=== PATIENT | female | born 2000 | race Caucasian/White ===

== ENCOUNTER 2019-06-08 13:01 | Outpatient (CLI) | payer MEDICAID, SELFPAY ==
--- NOTE | 2019-06-08 | US_ITS ---
WS: [id number] ULTRASOUND OB COMPLETE TECHNIQUE: Complete ultrasound. CLINICAL INFORMATION: POSITIVE TEST COMPARISON: None. FINDINGS: Cervix measures 2.4 cm. Single interuterine gestation is identified with vertex presentation. Placenta is posterior. Placenta grade 0. Normal amniotic fluid volume. cardiac activity: 138 BPM. AGA: 21w3d ALLA by ultrasound: 10/16/2019 Estimated weight: 399 g BDP: 5.3 cm = 22w0d HC: 19.6 cm = 21w6d AC: 15.8 cm = 20w6d FEMUR LENGTH: 3.5 cm = 21w1d Anatomic survey: Anatomic survey is normal. Normal stomach. Kidneys and bladder are normal. Normal 3 vessel cord. Norm al 3 vessel cord insertion. Normal 4 chamber heart. Normal spine. Intracranial contents are normal. N ormal posterior fossa and cisterna magna. US/US OB >= 14 weeks fetus [id number] IMPRESSION: 1. Single intrauterine with visualized cardiac activity. AGA 21 week s 1 day with ALLA 10/16/2019. 2. Placenta is posterior No evidence of abruption or previa. 3. anatomic survey is normal. 4. Normal amniotic fluid volume.
== END 2019-06-08 13:02 | disposition home or self-care (01) ==
PROVIDERS: Family Provider Family Medicine; PCP Family Medicine; Visit Provider Family Medicine
DX: Z76.89 Persons encountering health services in other specified circumstances (principal)

== ENCOUNTER 2019-08-08 12:19 | Outpatient (CLI) | payer MEDICAID, SELFPAY ==
--- NOTE | 2019-08-08 12:57 | PC.NURSE ---
Lab in room with patient at this time.
[2019-08-08 12:58] VITALS: BMI 20.3
[2019-08-08 13:59] VITALS: PULSE 72; RESP 18; TEMP 36.8; O2SAT 98
[2019-10-01 12:55] VITALS: BP 148/78; PULSE 93
== END 2019-08-08 12:20 | disposition home or self-care (01) ==
PROVIDERS: Family Provider Family Medicine; PCP Family Medicine; Visit Provider Family Medicine
DX: Z34.80 Encounter for supervision of other normal pregnancy, unspecified trimester (principal); Z31.82 Encounter for Rh incompatibility status; Z67.91 Unspecified blood type, Rh negative
CPT/HCPCS: 36415; 86850; 86900; 90384; 96372

== ENCOUNTER 2019-10-01 11:55 | Inpatient (IN) | payer MEDICAID, SELFPAY ==
[2019-10-01] VITALS (37 sets, daily range): BP systolic 0–173; BP diastolic 0–92; PULSE 52–86; RESP 16–20; TEMP 36.8; O2SAT 100; BMI 21.7
[2019-10-01 12:29] LABS: Basophils # 0.1 10^3/uL (0.0-0.1); Basophils % 0.9 %; Eosinophils # 0.4 10^3/uL (0.0-0.8); Eosinophils % 3.2 %; Hematocrit 27.7 % (37.0-47.0); Hemoglobin 8.5 g/dL (11.5-15.3); Lymphocytes % 25.6 %; Mean Corpuscular HGB Conc 30.7 g/dL (30.0-36.0); Mean Corpuscular Hemoglobin 22.4 pg (28.0-34.0); Mean Corpuscular Volume 73.1 fL (81-99); Mean Platelet Volume 10.3 fL (7.4-10.4); Monocytes # 0.8 10^3/uL (0.2-0.9); Monocytes % 7.2 %; Neutrophils # 7.4 10^3/uL (1.8-8.0); Neutrophils % 62.7 %; Nucleated Red Blood Cells % 0 %; Platelet Count 344 10^3/cmm (130-400); Red Blood Count 3.79 10^6/uL (4.1-5.3); Red Cell Distribution Width 17.7 % (12.1-15.1); White Blood Count 11.7 10^3/uL (4.5-13.0)
[2019-10-01] MEDS: lactated ringers 1,000 ML 999 ML IV (12:32)
[2019-10-01] MEDS: dextrose 5%-lactated ringers 1,000 ML 125 ML IV (13:02)
[2019-10-01] MEDS: oxytocin 30 UNIT/500 ML BAG 999 UNIT IV (13:03)
--- NOTE | 2019-10-01 13:31 | ANES.PREANE2 ---
Pre-Anesthetic Assessment Pre-Anesthetic Assessment: Height/Weight: Height 1.68 m Weight 61.235 kg Pulse BP Pulse Ox 73 173/82 100 10/01/19 13:23 10/01/19 13:29 10/01/19 13:24 Preop Diagnosis: labor pain Proposed Procedure: epidural Was Beta Hakan taken within 24 hours: N/A Social: Social History: Tobacco and No alcohol Exam: Pre-Anes Outpt Exam: alert, oriented x 3, clear to auscultation bilaterally and regular rate & rhythm Airway: Submandibular: WNL Cervical ROM: WNL MP: 2 Dentition: Full Pulmonary: Pulmonary: None reported CV/HEM: CV/HEM: Anemia : : None reported Hepatic: Hepatic: None reported GI: GI: None reported Metabolic: Metabolic: None reported Musc/skel: Musc/skel: None reported Neuropsych: Neuropsych: Anxiety Anesthetic Plan: ASA status: 2 Anesthesia: Eval. for regional block and Regional (specify below) Risk of > 500 ml blood loss (7ml/kg in children): No Other Pertinent Information: pre anesthetic assessment complete but charted post epidural due to patient needs. Meds/Allergies Current Medications: Current Medications Generic Name Dose Route Start Last Admin Trade Name Freq PRN Reason Stop Dose Admin Oxytocin 30 unit in 500 ml s @ 600 mls/hr 10/01/19 12:19 10/01/19 13:03 Pitocin IV 999 mls/hr .Q50M PRN 999 mls/hr After delivery of infant Administration Protocol Ropivacaine 200 mg in 100 mls @ 13 mls/hr 10/01/19 12:30 10/01/19 13:04 Naropin Premix EPIDURAL 13 mls/hr .Q7H42M NICOLE Administration Dextrose/Lactated Ringer's 1,000 mls @ 125 m ls/hr 10/01/19 12:30 10/01/19 13:02 Dextrose 5%-Lact ated Ringers IV 125 mls/hr .Q8H NICOLE Administration Lactated Ringer's 1,000 mls @ 999 m ls/hr 10/01/19 12:19 10/01/19 12:32 Lactated Ringers IV 999 mls/hr .Q1H1M PRN Administration BLEEDING Data Anesthesia CBC & Chem 7: 10/01/19 12:15 Other Labs: Laboratory Results - last 48 hr 10/01/19 12:15 WBC 11.7 RBC 3.79 L Hgb 8.5 L Hct 27.7 L MCV 73.1 L MCH 22.4 L MCHC 30.7 RDW 17.7 H Plt Count 344 MPV 10.3 Neut % (Auto) 62.7 Lymph % (Auto) 25.6 [place] % (Auto) 7.2 Eos % (Auto) 3.2 Baso % (Auto) 0.9 Neut # (Auto) 7.4 Lymph # (Auto) 3.0 [place] # (Auto) 0.8 Eos # (Auto) 0.4 Baso # (Auto) 0.1 Nucleated RBC % (auto) 0 Nucleated RBCs # 0.0 Cardiac Studies: No Data to Display
--- NOTE | 2019-10-01 13:34 | P.ANES_ITS ---
Anesthesia Procedures Procedure/Date: 10/01/19 epidural Procedure Narrative: epidural complete, bolus given, epidural pump initiated with LIQUEFACTION PLANT OPERATOR education given, vitals taken during procedure using OBIX system and satisfactory throughout, patient admits to decrease pain, report of procedure to OB RN Epidural: Time Out Performed: Yes Consents Signed: Procedure Consent Consent: requested by attending/covering physician, from patient, risks and benefits reviewed and patient agrees to proceed Lumbar Level: L3-L4 Epidural position: sitting Epidural procedure: sterile prep of area, 1% lidocaine to numb the area (3 mL), 18 g needle, negative for paresthesia passed, neg for paresthesia, test dose given, 1.5% xylocaine 1:200k epi (5 mL), 0.2% Ropivacaine bolus ml (5 mL), placed PCEA, no systemic response, sterile dressing applied, L.U.D. no apparent complications and 0.2% Ropiavacaine @ mls/hr (13 mL/hr)
--- NOTE | 2019-10-01 14:19 | PM.DELIVERY ---
Delivery Note: Date of delivery: October 01, 2019 Pre-Delivery Course: The patient had routine care during her . Her was complicated by short cervix and she was seen by M in [place]. Due to her history of prior delivery she received [place] injections throughout the thru 36 weeks. 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 She was blood type O-, antibody negative and received RhoGam at 28 weeks gestation. She was GBS negative. The patient was also diagnosed with constitutionally small fetus. Her ultrasound at 33 weeks gestation showed estimated weight to be in the 22nd percentile but this was brought up by a larger abdominal circumference. At 37 weeks gestation she was measuring less than the 10th percentile for all measurements. Again her abdominal circumference was the largest percentile of the measurements. As a precaution umbilical artery Dopplers were performed at that time and were reassuring. She also had a biophysical profile of 8 out of 8 that was reassuring. Delivery: This is a 19-year-old G2, P0101 at 37 weeks 6 days gestation who presented to labor and delivery in active labor 6 cm dilated 100% effaced and -1 station. She received an epidural for pain management. She was complete complete when artificial rupture of membranes was performed digitally and clear fluid was noted. Rupture of membranes was less than 15 minutes prior to delivery she had a normal spontaneous vaginal delivery of a viable female weight 2475 g 5 pounds 7 ounces Apgars 9 and 9 over an intact perineum. The was suctioned at delivery and placed on the mother's chest. The cord was clamped and cut. Placenta was delivered grossly intact and normal to inspection. There were some minor abrasions that were hemostatic and did not require any suturing. A&P Assessment and plan (1) Normal spontaneous vaginal delivery: Status: Acute (2) Short cervix affecting with delivery: Status: Acute (3) Rh negative, delivered, current hospitalization: Status: Acute Coding Level of Care Code Acute Roguer for g Fwd Diagnoses Normal spontaneous vaginal delivery O80 Short cervix affecting with delivery O26.879 Rh negative, delivered, current hospitalization O26.899; Z67.91
[2019-10-01] MEDS: lanolin oint 7 gm 1 APPLIC TOPICAL (16:39)
[2019-10-01] MEDS: benzocaine-menthol 78 gm Canister 1 SPRAY TOPICAL (16:40)
[2019-10-01] MEDS: docusate sodium 100 mg Capsule PO (17:25)
[2019-10-02 01:20] VITALS: BP 131/76; PULSE 73; RESP 17
[2019-10-02 02:49] LABS: Hematocrit 22.7 % (37.0-47.0); Hemoglobin 6.9 g/dL (11.5-15.3); Mean Corpuscular HGB Conc 30.4 g/dL (30.0-36.0); Mean Corpuscular Volume 75.7 fL (81-99); Mean Platelet Volume 10.7 fL (7.4-10.4); Platelet Count 317 10^3/cmm (130-400); Red Cell Distribution Width 17.6 % (12.1-15.1)
[2019-10-02 08:10] VITALS: BP 124/72; PULSE 70; RESP 17; TEMP 36.6; O2SAT 100
[2019-10-02] MEDS: docusate sodium 100 mg Capsule PO (09:52)
[2019-10-02] MEDS: prenatal vitamin Capsule 1 CAP PO (09:52)
--- NOTE | 2019-10-02 12:40 | PM.OBGYDC ---
Discharge Providers [employer] Date of Admission: 10/01/19 11:55 Date of Discharge: 10/02/19 Attending Provider at Admission: Cami Junior MD Attending Provider at Discharge: Cami Junior MD Primary Care Provider: Sarath Ramos MD Diagnoses at Discharge Discharge Diagnosis (1) Normal spontaneous vaginal delivery: Status: Acute (2) Short cervix affecting with delivery: Status: Acute (3) Rh negative, delivered, current hospitalization: Status: Acute Reason for Visit Reason for Visit: Reason For Visit: labor Hospital Course Discharge Summary: This is a 19-year-old -1-0-2 who presented to labor and delivery in active labor. She had a normal spontaneous vaginal delivery of a full-term viable female infant. After delivery she did well. She was ambulating, tolerating a regular diet, had decreased vaginal bleeding and was requesting discharge home. Information Peripartum Data: Infant Delivery Method: Vaginal Physical Exam Const: COMMON NORMALS: no acute distress and patient oriented x3 GENERAL APPEARANCE: cooperative and comfortable Chest: COMMONS NORMALS: normal inspection of the chest Resp: COMMON NORMALS: normal respiratory effort, No retractions and No use of accessory muscles Cardio: COMMON NORMALS: regular rate and regular rhythm RATE: regular rate RHYTHM: regular rhythm GI: COMMON NORMALS: Soft to palpation, non-tender and no masses PALPATION: Yes Soft to palpation Extremity: COMMON NORMALS: no calf tenderness and no pedal edema Neuro: COMMON NORMALS: patient oriented x3 Psych: COMMON NORMALS: mental status grossly normal Discharge Data Data Completed and Pending: Labs from last 24 hours 10/02/19 02:26 WBC 16.0 H RBC 3.00 L Hgb 6.9 L Hct 22.7 L MCV 75.7 L MCH 23.0 L MCHC 30.4 RDW 17.6 H Plt Count 317 MPV 10.7 H Vitals: Last Vital Signs Temp 97.9 F 10/02/19 08:10 Pulse 70 10/02/19 08:10 Resp 17 10/02/19 08:10 BP 124/72 10/02/19 08:10 Pulse Ox 100 10/02/19 08:10 Discharge Plan Discharge Patient Disposition: Home, Self-Care Condition: Stable Prescriptions: Continued iron 325 mg PO DAILY RF: 0 Discharge Orders: Discharge Order (Routine); Ordered 10/02/19 Ordered By: Cami Junior Referrals: Cami Junior MD [Physician] - 1 month Discharge Diet: Usual diet Discharge Activity: Limit activity as instructed Patient Instructions: Jaundice - , Cord Care (GEN), Tub Bathing Your Baby (GEN), Your Mckenney's Appearance (GEN), Caring for Your Baby (GEN), Bottle Feeding Your Baby (GEN), Jaundice in Newborns (GEN), Phototherapy for Jaundice in Newborns (DC), Umbilical Cord Care Discharge Attestations [employer] Time Spent in Discharge Care*: less than 30 min Coding Level of Care Code Acute Batch And Furnace Operator for Chg Fwd Diagnoses Normal spontaneous vaginal delivery O80 Short cervix affecting with delivery O26.879 Rh negative, delivered, current hospitalization O26.899; Z67.91
[2019-10-02 15:54] VITALS: BP 129/77; PULSE 82; RESP 18; TEMP 36.7; O2SAT 98
== END 2019-10-02 16:04 | disposition home or self-care (01) | DRG 807 ==
LOC: OPOB 12:58 → OBGYN 12:58
PROVIDERS: Admitting Provider Family Medicine; PCP Family Medicine; Visit Provider Family Medicine
DX: O26.873 Cervical shortening, third trimester (principal); Z37.0 Single live birth; Z3A.37 37 weeks gestation of pregnancy
CPT/HCPCS: 12345; 36415; 51702; 59025; 59409; 85025; 85027; 99211; J2795

== ENCOUNTER 2020-05-14 19:10 | Observation (INO) | payer MEDICAID, SELFPAY ==
[2020-05-14 19:15] VITALS: BP 129/81; PULSE 90; RESP 18; TEMP 36.9; O2SAT 97; BMI 16.1
--- NOTE | 2020-05-14 19:22 | ECG_ITS ---
[facility] Test Date: 2020-05-14 Pat Name: Donna Mullins Department: Room: Gender: Female Reading Coach: : 2000 Requested By: Wisam Barton Order Number: [id number] Yan MD: Kali Pfeiffer M.D. Measurements Intervals [place] Rate: 60 P: -12 DC: 111 QRS: -22 QRSD: 104 T: -12 QT: 386 QTc: 387 Interpretive Statements SINUS RHYTHM WITH SINUS ARRHYTHMIA WITH SHORT DC INTERVAL BORDERLINE LEFT AXIS DEVIATION [QRS AXIS < -20] INCOMPLETE RIGHT BUNDLE BRANCH BLOCK [90+ ms QRS DURATION, TERMINAL R IN V1/V2, 40+ ms S IN I/aVL/V4/V5/V6] MODERATE VOLTAGE CRITERIA FOR LVH, CONSIDER NORMAL VARIANT [MEETS CRITERIA IN ONE OF: R(aVL), S(V1), R(V5), R(V5/V6)+S(V1)] MODERATE ST DEPRESSION [0.05+ mV ST DEPRESSION] No previous ECG available for comparison Electronically Signed On 05-14-2020 23:55:07 SUTURE W[employer] by Kali Pfeiffer M.D. [email or web address]
[2020-05-14 19:53] LABS: Basophils # 0.1 10^3/uL (0.0-0.1); Basophils % 0.9 %; Eosinophils # 0.1 10^3/uL (0.0-0.8); Eosinophils % 1.3 %; Hematocrit 37.2 % (37.0-47.0); Hemoglobin 11.4 g/dL (11.5-15.3); Lymphocytes # 2.7 10^3/uL (0.8-4.8); Lymphocytes % 25.4 %; Mean Corpuscular HGB Conc 30.6 g/dL (30.0-36.0); Mean Corpuscular Hemoglobin 24.3 pg (28.0-34.0); Mean Corpuscular Volume 79.1 fL (81-99); Mean Platelet Volume 9.8 fL (7.4-10.4); Monocytes % 9.1 %; Neutrophils # 6.72 10^3/uL (1.8-7.7); Neutrophils % 63.1 %; Nucleated Red Blood Cells % 0 %; Platelet Count 363 10^3/cmm (130-400); Red Cell Distribution Width 15.5 % (12.1-15.1); White Blood Count 10.7 10^3/uL (4.0-10.0)
--- NOTE | 2020-05-14 20:10 | W.ED.PSYCH ---
HPI - Psych General: Chief Complaint: Psychiatric Symptoms Stated Complaint: psych eval Time Seen by Provider: 05/14/20 19:22 History of Present Illness: HPI Narrative: The patient is a 20-year-old female who comes to the ER complaining of depression and suicidal thoughts intermittently today. She says she has no plan and would not act on those thoughts. Her mother on 29 April and was. Today so she is particularly depressed today. denies any other medical complaints MD complaint: suicidal ideation and feels depressed Duration: intermittent History of same: Yes Context: recent drug abuse (THC) and significant life stressor Associated psychiatric symptoms: depression and suicidal ideation Associated symptoms: Deny depression Review of Systems General: Reports: 10 or more systems reviewed and unremarkable except in HPI and below Const: Denies: fatigue Eyes: Denies: change in vision, blurry vision or eye redness ENMT: Denies: throat pain, swelling of lips/tongue, ear or mastoid pain or nasal congestion Card: Denies: chest pain, palpitations, irregular heart rhythm, edema, dyspnea on exertion or orthopnea Resp: Denies: dyspnea, productive cough or non-productive cough GI: Denies: abdominal pain, diarrhea or GI cramping : Denies: flank pain, difficulty voiding, urinary frequency or urinary urgency Musc: Denies: neck pain, back pain, extremity pain, joint pain, joint redness, limited range of motion or muscle weakness Skin/Breast: Denies: rash, pruritus, erythema, skin pain or skin tenderness Neuro: Denies: headache(s), numbness in extremities, weakness in extremities, sensory changes, difficulty walking, dizziness, confusion or Slurred speech present Psych: Denies: anxiety or depression Endo: Denies: polyuria All/Imm: Denies: urticaria, throat swelling or tongue swelling [facility] Female Reproductive History: Date of last menstrual period: 04/09/20 Physical Exam Const: COMMON NORMALS: no acute distress, average body habitus, patient oriented x3, no limitations, healthy appearing, alert and well nourished GENERAL APPEARANCE: cooperative, comfortable, well kempt and well developed ORIENTATION/CONSCIOUSNESS: Yes awake, Yes oriented to person, Yes oriented to place and Yes oriented to time HENMT: COMMON NORMALS: normocephalic, external ears normal and Normal external nose present HEAD & SCALP: normal to inspection and normocephalic NOSE: Normal external nose present EXTERNAL EAR: Yes external ears normal MOUTH: Normal oral and palatal mucosa present THROAT: posterior oropharynx normal Eye: COMMON NORMALS: Equal, round and reactive pupils present and EOMs intact bilaterally GENERAL EYE: appearance normal, both eyes and all related structures PUPIL: Yes Equal, round and reactive pupils present Neck/C-Spine: COMMON NORMALS: full ROM, no lymphadenopathy, no meningeal signs and no JVD GENERAL: Yes normal visual inspection Lymph: LYMPHATIC: no lymphadenopathy noted Chest: COMMONS NORMALS: normal inspection of the chest and normal palpation of entire chest wall Resp: COMMON NORMALS: normal respiratory effort, No retractions, No use of accessory muscles, clear to auscultation bilaterally and percussion normal EFFORT & INSPECTION: Yes able to speak in complete sentences AUSCULTATION: clear to auscultation bilaterally PERCUSSION: percussion normal Cardio: COMMON NORMALS: no JVD, regular rate, regular rhythm, S1 normal heart sound present, S2 normal heart sound present and Peripheral pulses 2+ throughout RATE: regular rate RHYTHM: regular rhythm HEART SOUNDS: S1 normal heart sound present and S2 normal heart sound present PERIPHERAL PULSES: Peripheral pulses 2+ throughout GI: COMMON NORMALS: Normal to inspection, nondistended, normoactive bowel sounds present, Soft to palpation, non-tender and no masses INSPECTION: Yes normal to inspection PALPATION: Yes Soft to palpation : COMMON NORMALS: Yes no CVA tenderness BLADDER/KIDNEY EXAM: Yes no CVA tenderness Back/Pelvis: COMMON NORMALS: no CVA tenderness, thoracic and lumbar spine normal to inspection, no thoracic nor lumbar tenderness and thoraco-lumbar ROM normal Extremity: COMMON NORMALS: normal to inspection, full ROM, capillary refill normal, no joint enlargement and no pedal edema GENERAL: Yes normal exam except as noted Neuro: COMMON NORMALS: patient oriented x3, CN's II-XII intact bilaterally, moves all extremities, no focal motor deficits, no sensory deficits noted and gait normal SENSORIUM/ORIENTATION: Yes alert, Yes oriented to person, Yes oriented to place and Yes oriented to time MENINGEAL SIGNS: Yes no meningeal signs Psych: COMMON NORMALS: mental status grossly normal, Normal thought process present, cooperative, normal affect and speech normal APPEARANCE: Yes well kempt ATTITUDE: Yes calm SPEECH: Yes normal speech THOUGHT PROCESS: Normal thought process present Skin: COMMON NORMALS: no rashes or lesions noted GENERAL SKIN EXAM: no rashes or lesions noted MDM - Psych MDM Narrative: Medical decision making narrative: The patient came in depressed with intermittent suicidal thoughts. Offered her admission as she accepts. Dr. West accepts her care Lab Data: Labs: Lab Results 05/14/20 05/14/20 05/14/20 Range/Units 19:32 19:32 19:32 WBC (4.0-10.0) 10^3/ uL RBC (4.1-5.3) 10^6/u L Hgb (11.5-15.3) g/dL Hct (37.0-47.0) % MCV (81-99) fL MCH (28.0-34.0) pg MCHC (30.0-36.0) g/dL RDW (12.1-15.1) % Plt Count (130-400) 10^3/c mm MPV (7.4-10.4) fL Neut % (Auto) % Lymph % (Auto) % [place] % (Auto) % Eos % (Auto) % Baso % (Auto) % Neut # (Auto) (1.8-7.7) 10^3/u L Lymph # (Auto) (0.8-4.8) 10^3/u L [place] # (Auto) (0.2-0.9) 10^3/u L Eos # (Auto) (0.0-0.8) 10^3/u L Baso # (Auto) (0.0-0.1) 10^3/u L Nucleated RBC % (a uto) % Nucleated RBCs # /100WBC Sodium (136-145) mmol/L Potassium (3.5-5.1) mmol/L Chloride (98-107) mmol/L Carbon Dioxide (22-29) mmol/L Anion Gap (5-19) BUN (6-20) mg/dL Creatinine (0.5-0.9) mg/dL GFR Calculation (90-130) mL/min Glucose (65-115) mg/dL Calculated Osmolal ity (285-295) mOsm/k g Calcium (8.5-10.5) mg/dL Total Bilirubin (0.15-1.2) mg/dL AST (0-32) U/L ALT (0-33) U/L Alkaline Phosphata se (35-105) IU/L Total Protein (6.6-8.7) g/dL Albumin (3.5-5.2) g/dL Globulin (1.3-4.6) g/dL TSH (0.27-4.20) uIU/ mL HCG, Qual Negative (Negative) Urine Color Yellow (Yellow) Urine Appearance Sl cloudy A (CLEAR) Urine pH 7.0 (5-7) Ur Specific Gravit y 1.015 (1.005-1.030) Urine Protein Neg (Negative) Urine Glucose (UA) Norm (Normal) Urine Ketones Negative (Negative) Urine Blood Neg (Negative) Urine Nitrate Negative (Negative) Urine Bilirubin Neg (Negative) Urine Urobilinogen Norm (Negative) mg/dL Ur Leukocyte Rosangela ase Negative (Negative) Urine RBC None (0-2) /hpf Urine WBC None (0-5) /hpf Ur Squamous Epith Cells None (0-5) /hpf Amorphous Sediment 3+ /hpf Urine Bacteria Trace (NONE) /hpf Urine Opiates Scre en Negative (Negative) ng/mL Ur Barbiturates Sc reen Negative (Negative) ng/mL Ur Phencyclidine S crn Negative (Negative) ng/mL Ur Amphetamines Sc reen Negative (Negative) ng/mL U Benzodiazepines Scrn Negative (Negative) ng/mL Urine Cocaine Scre en Negative (Negative) ng/mL U Marijuana (THC) Screen Positive H (Negative) ng/mL Ethyl Alcohol (0-10) mg/dL 05/14/20 05/14/20 Range/Units 19:48 19:48 WBC 10.7 H (4.0-10.0) 10^3/ uL RBC 4.70 (4.1-5.3) 10^6/u L Hgb 11.4 L (11.5-15.3) g/dL Hct 37.2 (37.0-47.0) % MCV 79.1 L (81-99) fL MCH 24.3 L (28.0-34.0) pg MCHC 30.6 (30.0-36.0) g/dL RDW 15.5 H (12.1-15.1) % Plt Count 363 (130-400) 10^3/c mm MPV 9.8 (7.4-10.4) fL Neut % (Auto) 63.1 % Lymph % (Auto) 25.4 % [place] % (Auto) 9.1 % Eos % (Auto) 1.3 % Baso % (Auto) 0.9 % Neut # (Auto) 6.72 (1.8-7.7) 10^3/u L Lymph # (Auto) 2.7 (0.8-4.8) 10^3/u L [place] # (Auto) 1.0 H (0.2-0.9) 10^3/u L Eos # (Auto) 0.1 (0.0-0.8) 10^3/u L Baso # (Auto) 0.1 (0.0-0.1) 10^3/u L Nucleated RBC % (a uto) 0 % Nucleated RBCs # 0.0 /100WBC Sodium 138 (136-145) mmol/L Potassium 4.2 (3.5-5.1) mmol/L Chloride 103 (98-107) mmol/L Carbon Dioxide 26 (22-29) mmol/L Anion Gap 13.2 (5-19) BUN 7 (6-20) mg/dL Creatinine 0.6 (0.5-0.9) mg/dL GFR Calculation 126.2 (90-130) mL/min Glucose 112 (65-115) mg/dL Calculated Osmolal ity 285 (285-295) mOsm/k g Calcium 9.6 (8.5-10.5) mg/dL Total Bilirubin 0.2 (0.15-1.2) mg/dL AST 15 (0-32) U/L ALT 11 (0-33) U/L Alkaline Phosphata se 77 (35-105) IU/L Total Protein 7.6 (6.6-8.7) g/dL Albumin 4.3 (3.5-5.2) g/dL Globulin 3.3 (1.3-4.6) g/dL TSH 1.83 (0.27-4.20) uIU/ mL HCG, Qual (Negative) Urine Color (Yellow) Urine Appearance (CLEAR) Urine pH (5-7) Ur Specific Gravit y (1.005-1.030) Urine Protein (Negative) Urine Glucose (UA) (Normal) Urine Ketones (Negative) Urine Blood (Negative) Urine Nitrate (Negative) Urine Bilirubin (Negative) Urine Urobilinogen (Negative) mg/dL Ur Leukocyte Rosangela ase (Negative) Urine RBC (0-2) /hpf Urine WBC (0-5) /hpf Ur Squamous Epith Cells (0-5) /hpf Amorphous Sediment /hpf Urine Bacteria (NONE) /hpf Urine Opiates Scre en (Negative) ng/mL Ur Barbiturates Sc reen (Negative) ng/mL Ur Phencyclidine S crn (Negative) ng/mL Ur Amphetamines Sc reen (Negative) ng/mL U Benzodiazepines Scrn (Negative) ng/mL Urine Cocaine Scre en (Negative) ng/mL U Marijuana (THC) Screen (Negative) ng/mL Ethyl Alcohol < 10 (0-10) mg/dL Discharge Plan Discharge Patient Disposition: Admitted As Inpatient Admit Provider: Paulo West Clinical Impression: Suicidal ideation Condition: Stable Discharge Diet: Advance as tolerated Discharge Activity: Resume usual activity Coding Level of Care Code ED General Machinist for Rodrigo Fwd Exam Comprehensive
[2020-05-14 20:16] LABS: Amphetamines Screen Urine Negative (Negative); Barbiturates Screen Urine Negative (Negative); Benzodiazepines Screen Urine Negative (Negative); Cocaine Screen Urine Negative (Negative); Opiate Screen Urine Negative (Negative); PCP Screen Urine Negative (Negative); THC Screen Urine Positive (Negative)
[2020-05-14 20:26] LABS: HCG Qualitative Urine. Negative (Negative)
[2020-05-14 20:29] LABS: Add Urine Microscopic? YES; Bilirubin Urine Neg (Negative); Blood Urine Neg (Negative); Glucose Urine UA Norm (Normal); Ketones Urine Negative (Negative); Leukocyte Esterase Urine Negative (Negative); Nitrate Urine Negative (Negative); Protein Urine Neg (Negative); Specific Gravity, Urine 1.015 (1.005-1.030); Urine Color Yellow (Yellow); Urobilinogen Urine Norm (Negative)
[2020-05-14 20:30] LABS: Add Urine Culture? No; Amorphous Sediment Urine 3+ /hpf; Bacteria Urine TRACE /hpf
[2020-05-14 20:35] LABS: Alanine Aminotransferase 11 U/L (0-33); Albumin Level 4.3 g/dL (3.5-5.2); Alkaline Phosphatase 77 IU/L (35-105); Anion Gap 13.2 (5-19); Aspartate Amino Transferase 15 U/L (0-32); Blood Urea Nitrogen 7 mg/dL (6-20); Calcium 9.6 mg/dL (8.5-10.5); Carbon Dioxide 26 mmol/L (22-29); Chloride 103 mmol/L (98-107); Globulin 3.3 g/dL (1.3-4.6); Glomerular Filtration Rate 126.2 mL/min (90-130); Glucose 112 mg/dL (65-115); Osmolality Calculated 285 mOsm/kg (285-295); Potassium 4.2 mmol/L (3.5-5.1); Sodium 138 mmol/L (136-145); Thyroid Stimulating Hormone 1.83 uIU/mL (0.27-4.20); Total Bilirubin 0.2 mg/dL (0.15-1.2); Total Protein 7.6 g/dL (6.6-8.7)
[2020-05-14 20:38] LABS: Alcohol Level < 10 mg/dL (0-10)
[2020-05-14 22:15] VITALS: BP 130/70; PULSE 81; RESP 16; O2SAT 99
[2020-05-14 22:16] LABS: Acetaminophen < 5.0 ug/mL (10-30); Salicylate < 0.3 mg/dL (3-10)
[2020-05-14 22:25] VITALS: BP 123/82; PULSE 75; RESP 16; O2SAT 99
[2020-05-14 22:28] VITALS: BP 111/72; PULSE 81; RESP 18; TEMP 36.8; O2SAT 97
[2020-05-14] MEDS: hyDROXYzine 25 mg Capsule 50 MG PO (23:06)
[2020-05-14] MEDS: trazodone 50 mg Tablet PO (23:06)
--- NOTE | 2020-05-15 05:10 | PC.NURSE ---
Skin assessment revealed no wounds or injuries.
[2020-05-15 05:56] VITALS: BP 138/47; PULSE 59; RESP 17; TEMP 36.7; O2SAT 97
[2020-05-15] MEDS: propranolol 20 mg Tablet PO (15:19)
[2020-05-15] MEDS: fluoxetine 20 mg Capsule PO (15:19)
--- NOTE | 2020-05-15 16:16 | P.SS_ITS ---
Short Stay Summary Providers Date of Admit/Discharge: 05/15/20 Attending Provider: Pualo West MD Primary Care Provider: Sarath Ramos MD Chief Complaint: psy eval HPI History of Present Illness Donna Mullins is a 20 year old female who presented to the emergency department with the following report: Chief Complaint: Psychiatric Symptoms Stated Complaint: psych eval Time Seen by Provider: 05/14/20 19:22 History of Present Illness: HPI Narrative: The patient is a 20-year-old female who comes to the ER complaining of depression and suicidal thoughts intermittently today. She says she has no plan and would not act on those thoughts. Her mother on 29 April and was. Today so she is particularly depressed today. denies any other medical complaints complaint: suicidal ideation and feels depressed Duration: intermittent History of same: Yes Context: recent drug abuse (THC) and significant life stressor Associated psychiatric symptoms: depression and suicidal ideation Associated symptoms: Deny depression. She was admitted to the neuropsychiatric unit for definitive treatment of those issues. She presents today reporting that this is her first psychiatric admission. She reports that she did go to [facility] but has some bills she owes to them and so she can go back anticipates them off. Probably over 2 years ago. She reports it was shortly after the of her son. She reports she was really struggling with different feelings in thought counseling would help and it did. She reports that she smokes about 5 to 6 g a day, does not drink alcohol regularly, smokes marijuana mostly daily, denies cocaine methamphetamine or any other illicit drugs. She never gone to rehab and never had a DUI. She reports that this hospitalization is probably linked to the unexpected of her mother on April 29. She reports that she is hyperthyroid and had been off of her medication and was making some poor choices. That included using some drugs. Ultimately she got a leg infection that spread and for 6 weeks she had been in and out of the hospital. She reports that she had been in the hospital on April 29 and had a clot in her leg that went to her lungs and killed her. She reports that on top of all that she is raising her 2 young children and ports reading the father of her youngest child reporting that he has not worked since July and just sits around and plays [employer] and allows her to just do everything she reports that she has been talking to him daily about getting out of the house and he is not interested in leaving and she feels that the only way she will build get them out is by drastic measures like evicting him or PFA or something. We discussed the risk benefits and alternatives of a trial of Prozac and propranolol as needed and she understood and agreed to proceed as is documented in his note. Psychiatric history: As above. She denies history of suicide attempts but she does endorse having self-injurious behavior when she was about in middle school. Substance abuse history: As above. Family history: She denies psychiatric, mental health, addiction or suicide attempts or completions on either side of her family. Developmental history: She reports being about 3 weeks early, learning to walk and talk and meeting developmental milestones on time, and having speech therapy secondary to a lisp but denying emotional support, learning support or special education classes. Psychosocial history: She reports that her parents were together until she graduated from high school. That she has an older brother that is a product of the same union. Her mother has a son that is her half brother and her dad had a son and a daughter that are her half siblings. She reports that she was really poor when she was younger until her dad with the [employer] school. She denies emotional, physical or sexual abuse in her childhood. She graduated from high school and endorses being bisexual. She endorses her longest relationship is about 3 years. She is never been , she has a 2-1/2-year-old son and a 7-month-old daughter, she is never been in the and she endorses being a [employer]. 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 She currently lives in a house with her 2 children and the father of her youngest child. Legal history: She has been in shelter 1 time secondary to a cannabis possession charge. Mental status examination: This is a severely underweight young white female with hospital scrubs on with adequate grooming and eye contact. No abnormal movements except for mild psychomotor retardation. Cooperative with exam in no acute distress. Speech was slightly decreased volume and normal rate. Mood described as a little down, affect congruent. Thought process organized. Thought content: Patient denied suicidal or homicidal ideation, there were no delusions reported or noted, she denies any auditory or visual hallucinations. Attention and concentration were intact and memory appeared reliable but none were formally tested. She is alert and oriented x3. Insight and judgment appeared fair and impulse control appeared fair. Assessment/plan: This is a 20-year-old white female with a initial history of treatment with some counseling previously for her depression and anxiety who presents with bereavement, partner relational problem and cannabis abuse looking for connection to treatment. 1. Continue current medication. Initiate Prozac 20 mg p.o. every morning and propranolol prn. 2. Continue every 15 minute checks for safety until discharge. 3. Encourage individual, group and milieu therapies. . Work with social work to get patient connected with outpatient services and case management to negotiate the challenges of her current situation. Home Meds/Allergies Home Medications and Allergies Home Medications Medication Instructions Recorded Confirmed Type Cole-Iron 325 mg PO DAILY 05/14/20 05/14/20 History Allergies Allergy/AdvReac Type Severity Reaction Status Date / Time Penicillins Allergy Intermediate ADR-Shakine Verified 10/01/19 15:18 ss celexa Allergy ADR-Cramping Uncoded 05/14/20 23:30 of the Muscles [facility] Acute Female Reproductive History: Date of last menstrual period: 04/09/20 Vitals/I&O/Wt Last Vital Signs Temp 98.0 F 05/15/20 05:56 Pulse 59 L 05/15/20 05:56 Resp 17 05/15/20 05:56 BP 138/47 05/15/20 05:56 Pulse Ox 97 05/15/20 05:56 Weight last 48 hrs Weight 45.359 kg Hospital Course Admission Diagnoses Bereavement, cartilage problems, depression, anxiety, cannabis use, and suicidal thoughts. Hospital Course Donna presented to the emergency department with suicidal thinking and struggling after the of her mother about 2 weeks ago having stopped Celexa sometime ago for side effects. She was admitted to the neuropsychiatric unit for observation and definitive treatment of those issues. She was struggling with being away from her 2 children but was open to a trial of medication and being connected with outpatient services. She was started on Prozac and propranolol and had no issues with her first dose of Prozac. She contracted for safety prior to discharge. During the hospitalization, patient had routine laboratory studies which were within normal limits except for few outliers. Additionally he had a general medical evaluation which was also within normal limits and revealed no new acute processes. Discharge Summary At the time of discharge, she was absent lethality or psychosis. Mood and anxiety were well managed. Patient endorsed a plan to avoid all drugs of abuse except cannabis and follow-up with the aftercare recommendations of the treatment team. Patient was evaluated and deemed to be absent credible lethality, and was a voluntary patient who wanted to manage her symptoms on an outpatient basis, so was discharged. Diagnoses at Discharge Discharge Diagnosis (1) Suicidal ideation: Status: Acute (2) Cannabis abuse: Status: Acute (3) Partner relational problem: Status: Acute (4) Anxiety: Status: Acute (5) Depression: Status: Acute Discharge Plan Discharge Patient Disposition: Home Condition: Stable Prescriptions: New trazodone 50 mg Tablet 50 mg PO BEDTIME PRN (Reason: Sleep) 30 Days Qty: 30 RF: 1 propranolol 20 mg Tablet 20 mg PO TID PRN (Reason: Anxiety) 30 Days Qty: 90 RF: 1 fluoxetine 20 mg Capsule 20 mg PO DAILY 30 Days Qty: 30 RF: 1 Continued Cole-Iron 325 mg PO DAILY RF: 0 Discharge Orders: Discharge Order (Routine); Ordered 05/15/20 Ordered By: Paulo West Referrals: Sarath Ramos MD [Primary Care Provider] - Discharge Diet: Regular Discharge Activity: Resume usual activity Attestations Medical Necessity Statement*: Inpatient hospitalization was no longer medically necessary and the clinically appropriate intervention at this time. She was able to contract for safety and was open to initiating medications and following up as an outpatient. Time Spent in Patient Care*: greater than 30 min Specific Discharge Activities: Specific discharge activities: educating patient, discussing with continuous pillowcase cutter/social workers/dc planners, documenting/other paperwork and evaluating patient/reviewing data Status at Discharge: Cognitive status at discharge: cognitively intact , Behavioral status at discharge: cooperative , Functional status at discharge: independent ambulation Overall status at discharge: patient is progressing back to baseline Quality Metrics Clinical Quality Measures: During this hospital stay, did patient experience: None Coding Level of Care Code Acute Delinquent Tax Collection Assistant for Rodrigo Palmer Diagnoses Suicidal ideation R45.851 Cannabis abuse F12.10 Partner relational problem Z63.0 Anxiety F41.9 Depression F32.9
[2020-05-15 16:33] VITALS: BP 138/47; PULSE 59; RESP 17; TEMP 36.7; O2SAT 97
== END 2020-05-15 17:03 | disposition home or self-care (01) ==
LOC: ER 20:37 → NP 05-15 05:59
PROVIDERS: Admitting Provider Psychiatry & Neurology Psychiatry; Emergency Provider Family Medicine; PCP Family Medicine; Visit Provider Psychiatry & Neurology Psychiatry
DX: R45.851 Suicidal ideations (principal); F12.10 Cannabis abuse, uncomplicated; Z63.0 Problems in relationship with spouse or partner; F41.9 Anxiety disorder, unspecified; F32.9 Major depressive disorder, single episode, unspecified
CPT/HCPCS: 12345; 80053; 80306; 80307; 81001; 81025; 84443; 85025; 93005; 99284; 99285; G0378

== ENCOUNTER → 2021-03-03 16:17 | Outpatient (BNVA) | payer MEDICAID, SELFPAY | PROVIDERS: PCP Family Medicine; Visit Provider Nurse Practitioner Family | DX: Z20.822 Contact with and (suspected) exposure to COVID-19 (principal) | CPT/HCPCS: 87635 ==

== ENCOUNTER 2021-10-23 09:19 | Emergency (ER) | payer MEDICAID, SELFPAY ==
[2021-10-23 09:24] VITALS: BP 118/79; PULSE 78; RESP 40; TEMP 36.4; O2SAT 100; BMI 18.6
--- NOTE | 2021-10-23 09:32 | ED_ITS ---
HPI - Abdominal Pain General: Chief Complaint: Abdominal Pain Stated Complaint: adb pain Time Seen by Provider: 10/23/21 09:19 Source: patient Mode of arrival: ambulatory Limitations: no limitations History of Present Illness: Patient is a 21-year-old female who presents to ED today with a complaint of abdominal pain, nausea, vomiting, and diarrhea beginning this morning when she awoke. Patient states she has had 9-10 episodes of both emesis and diarrhea today. She reports no blood to either. She is not running fevers. Patient arrives and immediately is very anxious. She is hyperventilating and now complaining of carpal and pedal spasms as well as paresthesias to her arms. Patient denies any new medications. She denies alcohol or NSAID use. Denies drug/marijuana use. MD elicited complaint: abdominal pain Pertinent past history: none Onset (ago): hour(s) Pain Consistency: constant Location: Diffuse Radiation: none Migration to: no migration Exacerbating factors: eating Relieving factors: nothing Associated Symptoms: Reports diarrhea, nausea and vomiting; Denies chills, dysuria, fever(s), hematochezia, hematemesis, melena and syncope Related Data: Date of Last Menstrual Period: 04/09/20 Patient : No Review of Systems Const: Denies: fever(s), chills, body aches, fatigue or malaise Card: Denies: chest pain, palpitations, irregular heart rhythm, edema, swelling of feet/ankles, syncope, dyspnea on exertion, orthopnea, leg pain with exertion or acrocyanosis Resp: Reports: dyspnea; Denies: productive cough, non-productive cough or chest congestion GI: Reports: abdominal pain, nausea, vomiting and diarrhea; Denies: hematemesis, hematochezia or melena : Denies: flank pain, dysuria, vaginal odor, vaginal bleeding, vaginal discharge or pelvic pain Musc: Reports: other (carpal spasms); Denies: neck pain, back pain, extremity pain or joint pain Skin/Breast: Denies: rash Neuro: Reports: numbness in extremities; Denies: headache(s), weakness in extremities, lack of coordination or confusion [facility] ED Female Reproductive History: Date of last menstrual period: 04/09/20 Physical Exam Const: COMMON NORMALS: patient oriented x3, no limitations, alert and well nourished GENERAL APPEARANCE: cooperative and anxious (hyperventilating ) ORIENTATION/CONSCIOUSNESS: Yes awake, Yes oriented to person, Yes oriented to place and Yes oriented to time HENMT: COMMON NORMALS: normocephalic and atraumatic HEAD & SCALP: normal to inspection, normocephalic and atraumatic Neck/C-Spine: COMMON NORMALS: full ROM and no lymphadenopathy GENERAL: Yes normal visual inspection Chest: COMMONS NORMALS: normal inspection of the chest and normal palpation of entire chest wall Resp: COMMON NORMALS: normal respiratory effort, No retractions, No use of accessory muscles and clear to auscultation bilaterally EFFORT & INSPECTION: Yes tachypneic AUSCULTATION: clear to auscultation bilaterally Cardio: COMMON NORMALS: regular rate and regular rhythm RATE: regular rate RHYTHM: regular rhythm GI: COMMON NORMALS: Normal to inspection, nondistended, normoactive bowel sounds present, Soft to palpation, No hepatosplenomegaly present and no masses INSPECTION: Yes normal to inspection AUSCULTATION: Yes normoactive bowel sounds PALPATION: Yes Soft to palpation, Yes Tenderness to palpation present (GI) (diffusely ) and Yes No hepatosplenomegaly present : COMMON NORMALS: Yes no CVA tenderness BLADDER/KIDNEY EXAM: Yes no CVA tenderness Back/Pelvis: COMMON NORMALS: no CVA tenderness, thoracic and lumbar spine normal to inspection, no thoracic nor lumbar tenderness and thoraco-lumbar ROM normal Extremity: COMMON NORMALS: normal to inspection GENERAL: Yes normal exam except as noted Neuro: SABINE COMA SCALE: document GCS findings Sabine coma scale eye o pening: Spontaneous [place] coma scale verbal response: Orientated [place] coma scale motor response: Obey commands Sabine coma scale total score: 15 COMMON NORMALS: patient oriented x3, moves all extremities, no focal motor deficits and no sensory deficits noted SENSORIUM/ORIENTATION: Yes alert, Yes oriented to person, Yes oriented to place and Yes oriented to time Skin: COMMON NORMALS: no rashes or lesions noted GENERAL SKIN EXAM: no rashes or lesions noted Course Reevaluation(s): Reevaluation #1: Reevaluation reveals patient resting comfortably. She has not had any vomiting or diarrhea during her stay. Anxiety/hyperventilation has resolved. She is no longer complaining of carpal/pedal spasms or paresthesias. Went over patient's blood work including her mild hypokalemia and replacement for this. We are still pending a urine. CT scan of her abdomen is normal. Most likely this is a viral gastroenteritis and we went over treatment for this at home. Vital Signs: Vital signs: Vital Signs Temperature 97.5 F L 10/23/21 09:24 Pulse Rate 78 10/23/21 09:24 Respiratory Rate 40 H 10/23/21 09:24 Blood Pressure 118/79 10/23/21 09:24 Pulse Oximetry 100 10/23/21 09:24 MDM - Abdominal Pain Medical Decision Making Patient is still resting comfortably. Vital signs are stable. UA does not show any evidence for acute cystitis. At this time we will send patient home with nausea meds for vomiting. Recommend lots of rest and fluids. Return to ED precautions verbally given. Lab Data : 10/23/21 09:50 10/23/21 09:50 Labs/Radiology: Radiology Impressions Abdomen/Pelvis CT 10/23/21 09:33 IMPRESSION: 1. No acute intra-abdominal findings. 2. Small focus of ground-glass in the left lower lobe is likely infectious or inflammatory. Laboratory Results WBC 10.2 10^3/uL (4.0-10.0) H 10/23/21 09:50 RBC 5.11 10^6/uL (4.1-5.3) 10/23/21 09:50 Hgb 13.6 g/dL (11.5-15.3) 10/23/21 09:50 Hct 40.4 % (37.0-47.0) 10/23/21 09:50 MCV 79.1 fl (81-99) L 10/23/21 09:50 MCH 26.6 pg (28.0-34.0) L 10/23/21 09:50 MCHC 33.7 g/dL (30.0-36.0) 10/23/21 09:50 RDW 13.9 % (12.1-15.1) 10/23/21 09:50 Plt Count 333 10^3/cmm (130-400) 10/23/21 09:50 MPV 9.9 fL (7.4-10.4) 10/23/21 09:50 Neut % (Auto) 81.9 % 10/23/21 09:50 Lymph % (Auto) 9.1 % 10/23/21 09:50 Sharkey % (Auto) 8.2 % 10/23/21 09:50 Eos % (Auto) 0.1 % 10/23/21 09:50 Baso % (Auto) 0.4 % 10/23/21 09:50 Neut # (Auto) 8.34 10^3/uL (1.8-7.7) H 10/23/21 09:50 Lymph # (Auto) 0.9 10^3/uL (0.8-4.8) 10/23/21 09:50 Sharkey # (Auto) 0.8 10^3/uL (0.2-0.9) 10/23/21 09:50 Eos # (Auto) 0.0 10^3/uL (0.0-0.8) 10/23/21 09:50 Baso # (Auto) 0.0 10^3/uL (0.0-0.1) 10/23/21 09:50 Nucleated RBC % (auto) 0 % 10/23/21 09:50 Nucleated RBCs # 0.0 /100WBC 10/23/21 09:50 Sodium 138 mmol/L (136-145) 10/23/21 09:50 Potassium 3.1 mmol/L (3.5-5.1) L 10/23/21 09:50 Chloride 103 mmol/L (98-107) 10/23/21 09:50 Carbon Dioxide 17 mmol/L (22-29) L 10/23/21 09:50 Anion Gap 21.1 (5-19) H 10/23/21 09:50 BUN 9 mg/dL (6-20) 10/23/21 09:50 Creatinine 0.8 mg/dL (0.5-0.9) 10/23/21 09:50 GFR Calculation 89.7 mL/min (90-130) L 10/23/21 09:50 Glucose 111 mg/dL (65-115) 10/23/21 09:50 Calculated Osmolality 285 mOsm/kg (285-295) 10/23/21 09:50 Calcium 9.6 mg/dL (8.5-10.5) 10/23/21 09:50 Total Bilirubin 0.7 mg/dL (0.15-1.2) 10/23/21 09:50 AST 15 U/L (0-32) 10/23/21 09:50 ALT 9 U/L (0-33) 10/23/21 09:50 Alkaline Phosphatase 78 IU/L (35-105) 10/23/21 09:50 Total Protein 8.3 g/dL (6.6-8.7) 10/23/21 09:50 Albumin 4.9 g/dL (3.5-5.2) 10/23/21 09:50 Globulin 3.4 g/dL (1.3-4.6) 10/23/21 09:50 Lipase 18 U/L (13-60) 10/23/21 09:50 HCG, Qual Negative (Negative) 10/23/21 09:50 Urine Color Yellow (Yellow) 10/23/21 11:21 Urine Appearance Clear (CLEAR) 10/23/21 11:21 Urine pH 5 (5-7) 10/23/21 11:21 Ur Specific [place] 1.025 (1.005-1.030) 10/23/21 11:21 Urine Protein Neg (Negative) 10/23/21 11:21 Urine Glucose (UA) Norm (Normal) 10/23/21 11:21 Urine Ketones 3+ (Negative) H 10/23/21 11:21 Urine Blood 2+ (Negative) H 10/23/21 11:21 Urine Nitrate Negative (Negative) 10/23/21 11:21 Urine Bilirubin 1+ (Negative) H 10/23/21 11:21 Urine Urobilinogen Norm mg/dL (Negative) 10/23/21 11:21 Ur Leukocyte Esterase Negative (Negative) 10/23/21 11:21 Amorphous Sediment Not Reportable 10/23/21 11:21 Discharge Plan Discharge Patient Disposition: Home Clinical Impression: Gastroenteritis, Acute hypokalemia Condition: Stable Prescriptions: New ondansetron 4 mg tablet,disintegrating 4 mg PO Q8H PRN (Reason: nausea and vomiting) Qty: 14 0RF No Action citalopram 10 mg tablet 10 mg PO DAILY 0RF propranolol 20 mg Tablet 20 mg PO TID PRN (Reason: Anxiety) 30 Days Qty: 90 1RF Discharge Orders: Discharge ED (Routine); Ordered 10/23/21 Ordered By: Jasmyn Herring Referrals: Sarath Ramos MD [Primary Care Provider] - Patient Instructions: Hypokalemia (ED), Gastroenteritis (DC) Coding Level of Care Code ED Sanitation Technician for Chg Fwd Exam Comprehensive
--- NOTE | 2021-10-23 09:33 | CTR_ITS ---
PROCEDURE INFORMATION: Exam: CT Abdomen And Pelvis Without Contrast Exam date and time: 10/23/2021 10:26 AM Age: 21 years old Clinical indication: Abdominal pain; Acute; Additional info: Abdominal pain, n/v/d TECHNIQUE: Imaging protocol: Computed tomography of the abdomen and pelvis without contrast. Radiation optimization: All CT scans at this facility use at least one of these dose optimization techniques: automated exposure control; mA and/or kV adjustment per patient size (includes targeted exams where dose is matched to clinical indication); or iterative reconstruction. COMPARISON: OB >= 14 weeks fetus [id number] 06/08/2019 1:01 PM RADIATION DOSE METRICS: Total DLP (mGy-cm): 579.82 FINDINGS: Lungs: Small focus of ground-glass in the medial segment of the left lower lobe is likely infectious or inflammatory. Liver: Focal fatty infiltration along the falciform ligament. Gallbladder and bile ducts: Normal. No calcified stones. No ductal dilation. Pancreas: Normal. No ductal dilation. Spleen: Normal. No splenomegaly. Adrenal glands: Normal. No mass. Kidneys and ureters: Normal. No hydronephrosis. Stomach and bowel: Unremarkable. No obstruction. No mucosal thickening. Appendix: No evidence of appendicitis. Intraperitoneal space: Unremarkable. No free air. No significant fluid collection. Vasculature: Unremarkable. No abdominal aortic aneurysm. Lymph nodes: Unremarkable. No enlarged lymph nodes. Urinary bladder: Unremarkable as visualized. Reproductive: Unremarkable as visualized. Bones/joints: Unremarkable. No acute fracture. Soft tissues: Unremarkable. CT/CT kidney stone [id number] IMPRESSION: 1. No acute intra-abdominal findings. 2. Small focus of ground-glass in the left lower lobe is likely infectious or inflammatory.
[2021-10-23] MEDS: LORazepam 2 mg/mL INJ 1 mL 1 MG IVP (09:50)
[2021-10-23] MEDS: sodium chloride 0.9% 1,000 ML 999 ML IV (09:51)
[2021-10-23] MEDS: ondansetron 2 mg/ML SDV 2 mL 4 MG IVP (09:52)
[2021-10-23 10:01] LABS: Basophils % 0.4 %; Eosinophils % 0.1 %; Hematocrit 40.4 % (37.0-47.0); Hemoglobin 13.6 g/dL (11.5-15.3); Lymphocytes # 0.9 10^3/uL (0.8-4.8); Lymphocytes % 9.1 %; Mean Corpuscular HGB Conc 33.7 g/dL (30.0-36.0); Mean Corpuscular Hemoglobin 26.6 pg (28.0-34.0); Mean Corpuscular Volume 79.1 fl (81-99); Mean Platelet Volume 9.9 fL (7.4-10.4); Monocytes # 0.8 10^3/uL (0.2-0.9); Monocytes % 8.2 %; Neutrophils # 8.34 10^3/uL (1.8-7.7); Neutrophils % 81.9 %; Nucleated Red Blood Cells % 0 %; Platelet Count 333 10^3/cmm (130-400); Red Blood Count 5.11 10^6/uL (4.1-5.3); Red Cell Distribution Width 13.9 % (12.1-15.1); White Blood Count 10.2 10^3/uL (4.0-10.0)
[2021-10-23 10:12] LABS: HCG, Serum Qual Negative (Negative)
[2021-10-23 10:18] LABS: Alanine Aminotransferase 9 U/L (0-33); Albumin Level 4.9 g/dL (3.5-5.2); Alkaline Phosphatase 78 IU/L (35-105); Anion Gap 21.1 (5-19); Aspartate Amino Transferase 15 U/L (0-32); Blood Urea Nitrogen 9 mg/dL (6-20); Calcium 9.6 mg/dL (8.5-10.5); Carbon Dioxide 17 mmol/L (22-29); Chloride 103 mmol/L (98-107); Globulin 3.4 g/dL (1.3-4.6); Glomerular Filtration Rate 89.7 mL/min (90-130); Glucose 111 mg/dL (65-115); Lipase 18 U/L (13-60); Osmolality Calculated 285 mOsm/kg (285-295); Potassium 3.1 mmol/L (3.5-5.1); Sodium 138 mmol/L (136-145); Total Bilirubin 0.7 mg/dL (0.15-1.2); Total Protein 8.3 g/dL (6.6-8.7)
[2021-10-23] MEDS: potassium chloride ER 20 mEq Tablet 40 MEQ PO (11:30)
[2021-10-23 11:39] LABS: Urine Appearance Clear (CLEAR); Urine Color Yellow (Yellow)
[2021-10-23 11:40] LABS: Bilirubin Urine 1+ (Negative); Blood Urine 2+ (Negative); Glucose Urine UA Norm (Normal); Ketones Urine 3+ (Negative); Leukocyte Esterase Urine Negative (Negative); Nitrate Urine Negative (Negative); Protein Urine Neg (Negative); Specific Gravity, Urine 1.025 (1.005-1.030); Urobilinogen Urine Norm (Negative); pH Urine 5 (5-7)
[2021-10-23 11:41] LABS: Add Urine Microscopic? YES
[2021-10-23 11:58] LABS: Bacteria Urine 1+ /hpf; RBC Urine 0-4 /hpf (0-2); Squamous Epithelial Cell Urine 0-4 /hpf (0-5); WBC Urine 0-4 /hpf (0-5)
== END 2021-10-23 12:18 | disposition home or self-care (01) ==
PROVIDERS: Emergency Provider Physician Assistant; PCP Family Medicine
DX: K52.9 Noninfective gastroenteritis and colitis, unspecified (principal); E87.6 Hypokalemia; R11.2 Nausea with vomiting, unspecified
CPT/HCPCS: 74176; 80053; 81001; 83690; 84703; 85025; 96374; 96375; 99284; J2060; J2405; J7030

== ENCOUNTER 2022-02-11 10:05 | Emergency (ER) | payer MEDICAID, SELFPAY ==
[2022-02-11] VITALS (7 sets, daily range): BP systolic 115–136; BP diastolic 52–82; PULSE 49–77; RESP 19–27; TEMP 36.3–36.9; O2SAT 97–100; BMI 17.4
--- NOTE | 2022-02-11 10:08 | W.ED.GENADLT ---
HPI - General Adult General: Chief complaint: Anxiety Stated complaint: Anxiety N/V Time Seen by Provider: 02/11/22 10:06 History of Present Illness: Patient is a 22-year-old female history anxiety, panic attacks presenting to the emergency room with complaints of shortness of breath and chest pain which started to 2 hours ago. Patient reports all of her body has been numb for the last 2 hours. Patient thinks that this is an intense episode of panic attack. Patient reports multiple episodes dry heaving with nausea and vomiting. Patient has no other focal complaints including fever/chill, abdominal pain, dysuria/hematuria/polyuria, diarrhea/melena/hematochezia. Patient was brought into the emergency room by EMS. Patient received 4 mg Zofran for nausea vomiting. Onset:2 hrs ago Duration: 2 hrs Location:home Severity:moderate Associated symptoms: Reports chest pain, nausea and vomiting; Deny dyspnea, rash or palpitations Review of Systems Const: Denies: fever(s) or chills Eyes: Denies: change in vision ENMT: Denies: mouth pain Card: Reports: chest pain and dyspnea on exertion; Denies: palpitations Resp: Denies: dyspnea or non-productive cough GI: Reports: nausea and vomiting; Denies: abdominal pain or diarrhea : Denies: dysuria Musc: Denies: extremity pain Skin/Breast: Denies: rash or new lesions Neuro: Denies: weakness in extremities Psych: Reports: other (Normal mood) Prasad/Lymph: Denies: easy bruising PFSH ED PFSH: Medical History Anxiety Panic attack Social History Smoking and tobacco status: never smoked Alcohol intake: never Substance/Drug Use: never Physical Exam Const: COMMON NORMALS: alert HENMT: COMMON NORMALS: atraumatic HEAD & SCALP: atraumatic MOUTH: moist mucous membranes not abnormal Eye: COMMON NORMALS: EOMs intact bilaterally and conjunctivae normal CONJUNCTIVA: Yes conjunctivae normal Neck/C-Spine: COMMON NORMALS: full ROM and supple Resp: COMMON NORMALS: normal respiratory effort and clear to auscultation bilaterally AUSCULTATION: clear to auscultation bilaterally Cardio: RATE: tachycardic GI: COMMON NORMALS: Soft to palpation and non-tender PALPATION: Yes Soft to palpation OTHER: No focal TTP. NO guarding rebound, guarding, rigidity. No CVA tenderness to percussion. Neg Nieves/Neg McBurney's point tenderness, no suprabupic tenderness to palpation. Extremity: COMMON NORMALS: full ROM Neuro: SENSORIUM/ORIENTATION: Yes alert MOTOR EXAM: No Abnormal motor strength present and Other motor observations present (no focal motor deficits) Psych: COMMON NORMALS: speech normal SPEECH: Yes normal speech MOOD & AFFECT: Yes euthymic mood Course Vital Signs: Vital signs: Vital Signs Temperature 98.5 F 02/11/22 10:10 Pulse Rate 59 L 02/11/22 10:10 Respiratory Rate 22 H 02/11/22 10:10 Blood Pressure 130/75 02/11/22 10:10 Pulse Oximetry 100 02/11/22 10:10 Oxygen Delivery Me thod 02/11/22 10:10 MDM - General Adult Medical Decision Making Patient is a 22-year-old female history anxiety, panic attacks presenting to the emergency room with complaints of shortness of breath and chest pain which started to 2 hours ago. Patient has associated nausea vomiting. On arrival, patient is noted to be mildly tachycardic and in mild distress. Patient received IVF, Zofran and Versed with improvement in symptoms. X-ray chest and EKG is unremarkable. She was observed in the emergency room for 1 hour with improvement in symptoms. Patient is able to tolerate p.o. Patient reports her symptoms of chest pain shortness breath is significantly improved after medication. Doubt ACS/PE or other emergent causes of chest pain. No suspicion for aortic dissection given no widened mediastinum, 2+ upper extremity pulses, or tearing pain. No suspicion for PE given no pleuritic chest pain, recent immobilization or surgery hemoptysis, or other VTE risk factors. EKG is non-ischemic. XR normal. Disposition: Discharge. Patient counseled regarding diagnostic impression, treatment plan. Patient given ED strict return precautions to return for continuation, worsening, or development of new symptoms. Instructed to f/u w/ PCP regarding symptoms today. Patient verbalized understanding. Lab Data : 02/11/22 10:50 02/11/22 10:50 Radiology Impressions Chest X-Ray 02/11/22 10:15 IMPRESSION: Unremarkable portable chest. Imaging Data Other Imaging: Radiologist's impression: [facility] [address] [place] [address] XRay Report Signed Patient: Donna Mullins Unit #: [id number] : 2000 Age/Sex: 22 / F ADM Date: 02/11/22 Loc: ER Room/Bed: Attending Dr: Ordering Provider/Ordering MD: Pilo Long MD Date of Service: 02/11/22 Procedure(s): XR chest 1V portable 72950 Accession Number(s): [id number] Report Number: [id number] WS: [id number] PORTABLE CHEST HISTORY: dyspnea COMPARISON: None available. Lungs are clear and well expanded. No pleural effusion or pneumothorax. Cardiac size: Normal. Mediastinum/Aorta: Normal mediastinum. No osseous abnormality seen. XR/XR chest 1V portable [id number] IMPRESSION: ? Unremarkable portable chest. ? ? ? Dictated By: Brenda Marsh DO Signed By: Brenda Marsh DO Signed Date/Time: 02/11/22 1027 DD/ 1026 Discharge Plan Discharge Condition: Stable Prescriptions: No Action citalopram 10 mg tablet 10 mg PO DAILY propranolol 20 mg Tablet 20 mg PO TID PRN (Reason: Anxiety) 30 Days Qty: 90 1RF ondansetron 4 mg tablet,disintegrating 4 mg PO Q8H PRN (Reason: nausea and vomiting) Qty: 14 0RF Referrals: Sarath Ramos MD [Primary Care Provider] - Coding Level of Care Code ED Supervisor Graphite for Chg Fwd Exam Comprehensive
--- NOTE | 2022-02-11 10:12 | PC.NURSE ---
pt reports chest pain when woke up and began vomiting. reports her fingers began tingling. pt reports she believes she is having an anxiety attack. pt arrived appears to hyperventilating. pt able to be redirected with breathing exercises and redirection. pt reports anxiety episodes are random, denies any stressers. pt speech clear, speaking in complete sentences without difficulty. lung sounds clear bilat. skin pink/warm/dry. reports chest pain is 2-3/10 and described as heavy. call light with reach, visitor at bedside.
--- NOTE | 2022-02-11 10:15 | XR_ITS ---
WS: [id number] PORTABLE CHEST HISTORY: dyspnea COMPARISON: None available. Lungs are clear and well expanded. No pleural effusion or pneumothorax. Cardiac size: Normal. Mediastinum/Aorta: Normal mediastinum. No osseous abnormality seen. XR/XR chest 1V portable [id number] IMPRESSION: Unremarkable portable chest.
[2022-02-11] MEDS: midazolam 1 mg/mL INJ 2 mL 2 MG IVP (10:38)
[2022-02-11] MEDS: lactated ringers 1,000 ML 999 ML IV (10:43)
[2022-02-11] MEDS: ondansetron 2 mg/ML SDV 2 mL 4 MG IVP (10:45)
[2022-02-11 10:59] LABS: Basophils # 0.1 10^3/uL (0.0-0.1); Basophils % 0.4 %; Hematocrit 38.2 % (37.0-47.0); Hemoglobin 12.4 g/dL (11.5-15.3); Lymphocytes # 0.9 10^3/uL (0.8-4.8); Lymphocytes % 8.3 %; Mean Corpuscular HGB Conc 32.5 g/dL (30.0-36.0); Mean Corpuscular Volume 83.2 fl (81-99); Mean Platelet Volume 10.2 fL (7.4-10.4); Monocytes # 0.5 10^3/uL (0.2-0.9); Monocytes % 4.3 %; Neutrophils # 9.67 10^3/uL (1.8-7.7); Neutrophils % 86.6 %; Nucleated Red Blood Cells % 0 %; Platelet Count 295 10^3/cmm (130-400); Red Blood Count 4.59 10^6/uL (4.1-5.3); Red Cell Distribution Width 15.5 % (12.1-15.1); White Blood Count 11.2 10^3/uL (4.0-10.0)
--- NOTE | 2022-02-11 11:05 | PC.NURSE ---
pt HR rangings mid 40s-60s. Dr. Long notified
[2022-02-11 11:21] LABS: Alanine Aminotransferase 7 U/L (0-33); Albumin Level 4.3 g/dL (3.5-5.2); Alkaline Phosphatase 69 U/L (35-105); Anion Gap 15.2 (5-19); Aspartate Amino Transferase 12 U/L (0-32); Blood Urea Nitrogen 8 mg/dL (6-20); Calcium 9.5 mg/dL (8.5-10.5); Carbon Dioxide 20 mmol/L (22-29); Chloride 105 mmol/L (98-107); Globulin 2.9 g/dL (1.3-4.6); Glomerular Filtration Rate 103.7 mL/min (90-130); Glucose 100 mg/dL (65-115); Lipase 21 U/L (13-60); Magnesium 2.1 mg/dL (1.7-2.3); Osmolality Calculated 282 mOsm/kg (285-295); Potassium 3.2 mmol/L (3.5-5.1); Sodium 137 mmol/L (136-145); Total Bilirubin 0.6 mg/dL (0.15-1.2); Total Protein 7.2 g/dL (6.6-8.7)
--- NOTE | 2022-02-11 11:26 | PC.NURSE ---
notified by pharmacy technician infusion that pt reports taking 3 pills this morning but does not remember if it was lexapro or protantolol. entered room, pt reports she normally keeps her bottles in specific spots and doesn't look at the bottle labels when taking meds, but thinks they were in a different order this morning. denies any thoughts or acts of self harm. educated pt on importance of reading bottle labels every time and taking medications as prescribed.
--- NOTE | 2022-02-11 11:33 | PC.PHAR ---
pt states she takes care of her own medications-pt brought in med bottle of propranolol 20mg tid prn ax dated 05/15/2020 and lexapro 10mg hs dated 12/05/2020-pt states she took 3 tabs today but is unsure which one she took-
--- NOTE | 2022-02-11 12:10 | PC.NURSE ---
spoke with Dr. Long regarding medications pt took this morning. okay to continue with discharge.
== END 2022-02-11 11:59 | disposition home or self-care (01) ==
PROVIDERS: Emergency Provider Emergency Medicine; PCP Family Medicine
DX: R06.02 Shortness of breath (principal); R07.9 Chest pain, unspecified
CPT/HCPCS: 36415; 71045; 80053; 81025; 83690; 83735; 85025; 96361; 96374; 96375; 99284; J2250; J2405

== ENCOUNTER 2022-02-11 16:59 | Emergency (ER) | payer MEDICAID, SELFPAY ==
[2022-02-11 17:05] VITALS: BP 133/68; PULSE 82; RESP 17; TEMP 36.8; O2SAT 100; BMI 17.7
--- NOTE | 2022-02-11 17:16 | ECG_ITS ---
[facility] Test Date: 2022-02-11 Pat Name: Donna Mullins Department: Room: Gender: Female [employer]: : 2000 Requested By: Pilo Long Order Number: [id number] Yuriy MD: Eddie Christina M.D. Measurements Intervals [place] Rate: 70 P: 267 LA: 119 QRS: 91 QRSD: 100 T: 78 QT: 392 QTc: 423 Interpretive Statements ECTOPIC ATRIAL RHYTHM BORDERLINE RIGHT AXIS DEVIATION [QRS AXIS > 90] POSSIBLE RIGHT VENTRICULAR CONDUCTION DELAY [RSR (QR) IN V1/V2] Compared to ECG 05/14/2020 19:50:46 Sinus rhythm no longer present Sinus arrhythmia no longer present Short LA interval no longer present Incomplete right bundle-branch block no longer present ST (T wave) deviation no longer present Electronically Signed On 02-12-2022 8:53:17 CDT by Eddie Christina M.D. [id number]
--- NOTE | 2022-02-11 17:51 | W.ED.GENADLT ---
HPI - General Adult General: Chief complaint: Anxiety Stated complaint: Anxiety, cassie santoyo Time Seen by Provider: 02/11/22 17:49 History of Present Illness: Patient is a 22-year-old female with a history of anxiety panic type who was initially seen earlier today emergency room for concerns of anxiety attacks presents again emergency room after prescribed medication has not worked. Patient was seen earlier in the emergency room received Ativan with reports feeling symptomatically improved. Patient attempted to take Vistaril at home reports that her anxiety has not lessened. Patient did call EMS was brought to the emergency room. Patient denies any suicidal ideation homicidal ideation, acute hallucination. Patient states, that her anxiety is high currently. Denies fever/chill, chest pain, shortness of breath, abdominal pain, dysuria/hematuria/polyuria, diarrhea/melena/hematochezia. Onset:earlier today Duration:ongoing Location:home Severity:moderate Associated symptoms: Deny chest pain, dyspnea, nausea, rash, palpitations or vomiting Review of Systems Const: Denies: fever(s) or chills Eyes: Denies: change in vision ENMT: Denies: mouth pain Card: Denies: chest pain or palpitations Resp: Denies: dyspnea or non-productive cough GI: Denies: abdominal pain, nausea, vomiting or diarrhea : Denies: dysuria Musc: Denies: extremity pain Skin/Breast: Denies: rash or new lesions Neuro: Denies: weakness in extremities Psych: Reports: other (Normal mood) Prasad/Lymph: Denies: easy bruising PFS ED PFSH: Medical History Anxiety Panic attack Social History Smoking and tobacco status: never smoked Alcohol intake: never Physical Exam Const: COMMON NORMALS: alert HENMT: COMMON NORMALS: atraumatic HEAD & SCALP: atraumatic MOUTH: moist mucous membranes not abnormal Eye: COMMON NORMALS: EOMs intact bilaterally and conjunctivae normal CONJUNCTIVA: Yes conjunctivae normal Neck/C-Spine: COMMON NORMALS: full ROM and supple Resp: COMMON NORMALS: normal respiratory effort and clear to auscultation bilaterally AUSCULTATION: clear to auscultation bilaterally Cardio: COMMON NORMALS: regular rate RATE: regular rate GI: COMMON NORMALS: Soft to palpation and non-tender PALPATION: Yes Soft to palpation Extremity: COMMON NORMALS: full ROM Neuro: SENSORIUM/ORIENTATION: Yes alert MOTOR EXAM: No Abnormal motor strength present and Other motor observations present (no focal motor deficits) Psych: COMMON NORMALS: speech normal SPEECH: Yes normal speech MOOD & AFFECT: Yes euthymic mood Course Vital Signs: Vital signs: Vital Signs Temperature 98.2 F 02/11/22 17:05 Pulse Rate 87 02/11/22 20:42 Respiratory Rate 18 02/11/22 20:42 Blood Pressure 113/76 02/11/22 20:42 Pulse Oximetry 95 02/11/22 20:42 Oxygen Delivery Me thod 02/11/22 20:42 MDM - General Adult Medical Decision Making Patient is a 22-year-old female with a history of anxiety panic type who was initially seen earlier today emergency room for concerns of anxiety attacks presents again emergency room after prescribed medication has not worked. Patient is hemodynamically stable and in mild distress. Patient denies any suicidal ideation, homicidal ideation or acute hallucination. EKG did not show any signs of ST elevation or any focal findings. Patient had x-ray evaluation from earlier which was unremarkable. Patient tells me that she recently broke up with her significant other and is feeling very distressed. She received Ativan reports feeling symptomatically improved. This time, patient will tells me that she would like to go home. Rx ativan PRN anxiety Disposition: Discharge. Patient counseled regarding diagnostic impression, treatment plan. Patient given ED strict return precautions to return for continuation, worsening, or development of new symptoms. Instructed to f/u w/ PCP regarding symptoms today. Patient verbalized understanding. Discharge Plan Discharge Patient Disposition: Home Clinical Impression: Anxiety Condition: Stable Prescriptions: New Ativan 1 mg tablet 1 mg PO TID PRN (Reason: anxiety) Qty: 6 0RF No Action propranolol 20 mg Tablet 20 mg PO TID PRN (Reason: Anxiety) 30 Days Qty: 90 1RF ondansetron 4 mg tablet,disintegrating 4 mg PO Q8H PRN (Reason: nausea and vomiting) Qty: 14 0RF ibuprofen 200 mg Tablet 400 - 600 mg PO Q6H PRN (Reason: Pain) medroxyprogesterone 150 mg/mL suspension 150 mg IM .EVERY 3 MONTHS escitalopram oxalate [Lexapro] 10 mg Tablet 10 mg PO BEDTIME PRN (Reason: unknown) Vistaril 25 mg capsule 25 mg PO BID PRN (Reason: anxiety) Qty: 10 0RF Discharge Orders: Discharge ED (Routine); Ordered 02/11/22 Ordered By: Pilo Long Referrals: Sarath Ramos MD [Primary Care Provider] - Discharge Diet: Advance as tolerated Discharge Activity: Increase activity as tolerated Patient Instructions: Anxiety (ED) Activity Restrictions/Additional Instructions: Please come back to the emergency room if you need help, have any hallucinations, or you have any depression or have thoughts about hurting yourself or other people. Coding Level of Care Code ED Registered Respiratory Therapist for Rodrigo Fwd Exam Comprehensive
[2022-02-11] MEDS: LORazepam 2 mg Tablet PO (17:55)
[2022-02-11 18:37] VITALS: BP 129/65; O2SAT 94
[2022-02-11 18:45] VITALS: BP 129/65; O2SAT 95
--- NOTE | 2022-02-11 19:00 | PC.NURSE ---
Report from HENNY Vines. Pt resting quietly. Denies needs at this time. Is calm and cooperative and denies SI/HI. Cup of ice water requested and provided.
--- NOTE | 2022-02-11 19:05 | PC.NURSE ---
report given to HENNY Fry
[2022-02-11] MEDS: lactated ringers 1,000 ML 999 ML IV (19:20)
[2022-02-11 19:21] VITALS: BP 117/64; PULSE 57; RESP 16; O2SAT 98
[2022-02-11 20:42] VITALS: BP 113/76; PULSE 87; RESP 18; O2SAT 95
== END 2022-02-11 20:47 | disposition home or self-care (01) ==
PROVIDERS: Emergency Provider Emergency Medicine; PCP Family Medicine
DX: F41.9 Anxiety disorder, unspecified (principal)
CPT/HCPCS: 93005

== ENCOUNTER 2022-02-12 08:38 | Inpatient (IN) | payer OTHER, SELFPAY ==
[2022-02-12] VITALS (10 sets, daily range): BP systolic 100–144; BP diastolic 60–92; PULSE 63–93; RESP 15–20; TEMP 36.9–37; O2SAT 96–100; BMI 17.7
--- NOTE | 2022-02-12 10:25 | W.ED.ANXIETY ---
HPI - Anxiety General: Chief Complaint: Anxiety Stated Complaint: Psych Eval Time Seen by Provider: 02/12/22 08:56 Source: patient Mode of arrival: ambulatory History of Present Illness: 22-year-old female presents the emergency room as a third visit in approximately 18 to 24 hours. She recently had a break-up with her fianc? and has not been adjusting well and she has been having multiple panic attacks. She was initially given hydroxyzine and then Ativan yesterday. She denies any suicidal or homicidal ideation. Evaluation done previously lab work was unremarkable. MD complaint: anxiety Onset (ago): minute(s) Severity: mild Quality: constant Place: home Relieving factors: nothing Exacerbating factors: nothing Associated symptoms: Deny chest pain, chills, fever(s), malaise, nausea or vomiting Review of Systems Const: Denies: fever(s), chills, body aches, change in appetite, fatigue or malaise ENMT: Denies: throat pain, ear or mastoid pain, nasal discharge or nasal congestion Card: Denies: chest pain, edema, dyspnea on exertion or orthopnea Resp: Denies: dyspnea, productive cough or non-productive cough GI: Denies: abdominal pain, nausea, vomiting, hematemesis, coffee ground emesis, diarrhea, constipation, bloating, hematochezia or melena : Denies: flank pain, difficulty voiding, dysuria, urinary frequency or urinary urgency Skin/Breast: Denies: rash or pruritus [facility] ED PFSH: Medical History Anxiety Panic attack Psychiatric care Social History Smoking and tobacco status: never smoked Alcohol intake: never Female Reproductive History: Date of last menstrual period: 02/12/22 Physical Exam Const: COMMON NORMALS: no acute distress GENERAL APPEARANCE: cooperative and comfortable ORIENTATION/CONSCIOUSNESS: Yes awake, Yes oriented to person, Yes oriented to place and Yes oriented to time HENMT: COMMON NORMALS: normocephalic, atraumatic and hearing grossly normal bilaterally HEAD & SCALP: normocephalic and atraumatic Lymph: LYMPHATIC: no lymphadenopathy noted and no lymphedema noted Resp: COMMON NORMALS: normal respiratory effort, No retractions, No use of accessory muscles and clear to auscultation bilaterally AUSCULTATION: clear to auscultation bilaterally Cardio: COMMON NORMALS: regular rate, regular rhythm and No murmurs present (Cardio) RATE: regular rate RHYTHM: regular rhythm GI: COMMON NORMALS: Soft to palpation and No hepatosplenomegaly present AUSCULTATION: Yes normoactive bowel sounds PALPATION: Yes Soft to palpation, No Tenderness to palpation present (GI), No Guarding due to palpation present (GI) and Yes No hepatosplenomegaly present Extremity: COMMON NORMALS: normal to inspection, capillary refill normal, no clubbing, cyanosis or edema, no calf tenderness and no pedal edema Neuro: SENSORIUM/ORIENTATION: Yes oriented to person, Yes oriented to place and Yes oriented to time Skin: COMMON NORMALS: no rashes or lesions noted GENERAL SKIN EXAM: no rashes or lesions noted Course Vital Signs: Vital signs: Vital Signs Temperature 97.6 F 02/16/22 12:57 Pulse Rate 65 02/16/22 12:57 Respiratory Rate 16 02/16/22 12:57 Blood Pressure 102/63 02/16/22 12:57 Pulse Oximetry 99 02/15/22 21:34 Oxygen Delivery Me thod 02/16/22 06:00 MDM - Anxiety Medical Decision Making Depressed flat affect. No psychosis. Discussed with psychiatry. She has been here multiple times Dr. Moreno thinks he can be of benefit by admitting her orders written. Medical Records I reviewed the patient's medical records. Lab Data I reviewed the patient's lab results. : 02/12/22 11:10 02/12/22 11:10 Laboratory Results WBC 12.8 10^3/uL (4.0-10.0) H 02/12/22 11:10 RBC 4.23 10^6/uL (4.1-5.3) 02/12/22 11:10 Hgb 11.5 g/dL (11.5-15.3) 02/12/22 11:10 Hct 36.2 % (37.0-47.0) L 02/12/22 11:10 MCV 85.6 fl (81-99) 02/12/22 11:10 MCH 27.2 pg (28.0-34.0) L 02/12/22 11:10 MCHC 31.8 g/dL (30.0-36.0) 02/12/22 11:10 RDW 15.5 % (12.1-15.1) H 02/12/22 11:10 Plt Count 278 10^3/cmm (130-400) 02/12/22 11:10 MPV 10.2 fL (7.4-10.4) 02/12/22 11:10 Neut % (Auto) 82.7 % 02/12/22 11:10 Lymph % (Auto) 12.4 % 02/12/22 11:10 Harney % (Auto) 3.5 % 02/12/22 11:10 Eos % (Auto) 0.8 % 02/12/22 11:10 Baso % (Auto) 0.4 % 02/12/22 11:10 Neut # (Auto) 10.62 10^3/uL (1.8-7.7) H 02/12/22 11:10 Lymph # (Auto) 1.6 10^3/uL (0.8-4.8) 02/12/22 11:10 [place] # (Auto) 0.5 10^3/uL (0.2-0.9) 02/12/22 11:10 Eos # (Auto) 0.1 10^3/uL (0.0-0.8) 02/12/22 11:10 Baso # (Auto) 0.1 10^3/uL (0.0-0.1) 02/12/22 11:10 Nucleated RBC % (auto) 0 % 02/12/22 11:10 Nucleated RBCs # 0.0 /100WBC 02/12/22 11:10 Sodium 138 mmol/L (136-145) 02/12/22 11:10 Potassium 3.7 mmol/L (3.5-5.1) 02/12/22 11:10 Chloride 106 mmol/L (98-107) 02/12/22 11:10 Carbon Dioxide 20 mmol/L (22-29) L 02/12/22 11:10 Anion Gap 15.7 (5-19) 02/12/22 11:10 BUN 7 mg/dL (6-20) 02/12/22 11:10 Creatinine 0.7 mg/dL (0.5-0.9) 02/12/22 11:10 GFR Calculation 103.7 mL/min (90-130) 02/12/22 11:10 Glucose 91 mg/dL (65-115) 02/12/22 11:10 Calculated Osmolality 284 mOsm/kg (285-295) L 02/12/22 11:10 Calcium 8.6 mg/dL (8.5-10.5) 02/12/22 11:10 Total Bilirubin 0.3 mg/dL (0.15-1.2) 02/12/22 11:10 AST 10 U/L (0-32) 02/12/22 11:10 ALT 6 U/L (0-33) 02/12/22 11:10 Alkaline Phosphatase 59 U/L (35-105) 02/12/22 11:10 Total Protein 6.3 g/dL (6.6-8.7) L 02/12/22 11:10 Albumin 4.1 g/dL (3.5-5.2) 02/12/22 11:10 Globulin 2.2 g/dL (1.3-4.6) 02/12/22 11:10 HCG, Qual Negative (Negative) 02/12/22 11:10 Salicylates 0.4 mg/dL (3-10) L 02/12/22 11:10 Acetaminophen < 5.0 ug/mL (10-30) L 02/12/22 11:10 Discharge Plan Discharge Patient Disposition: Admitted As Inpatient Admit Provider: Solitario Jacome Clinical Impression: Adjustment disorder, Major depressive disorder, recurrent episode, unspecified, Generalized anxiety disorder Condition: Stable Discharge Diet: Advance as tolerated Discharge Activity: Resume usual activity Coding Level of Care Code ED Plaster Block Layer for Rodrigo Palmer
[2022-02-12 11:17] LABS: Basophils # 0.1 10^3/uL (0.0-0.1); Basophils % 0.4 %; Eosinophils # 0.1 10^3/uL (0.0-0.8); Eosinophils % 0.8 %; Hematocrit 36.2 % (37.0-47.0); Hemoglobin 11.5 g/dL (11.5-15.3); Lymphocytes # 1.6 10^3/uL (0.8-4.8); Lymphocytes % 12.4 %; Mean Corpuscular HGB Conc 31.8 g/dL (30.0-36.0); Mean Corpuscular Hemoglobin 27.2 pg (28.0-34.0); Mean Corpuscular Volume 85.6 fl (81-99); Mean Platelet Volume 10.2 fL (7.4-10.4); Monocytes # 0.5 10^3/uL (0.2-0.9); Monocytes % 3.5 %; Neutrophils # 10.62 10^3/uL (1.8-7.7); Neutrophils % 82.7 %; Nucleated Red Blood Cells % 0 %; Platelet Count 278 10^3/cmm (130-400); Red Blood Count 4.23 10^6/uL (4.1-5.3); Red Cell Distribution Width 15.5 % (12.1-15.1); White Blood Count 12.8 10^3/uL (4.0-10.0)
[2022-02-12 11:28] LABS: HCG, Serum Qual Negative (Negative)
[2022-02-12 11:33] LABS: Alanine Aminotransferase 6 U/L (0-33); Albumin Level 4.1 g/dL (3.5-5.2); Alkaline Phosphatase 59 U/L (35-105); Anion Gap 15.7 (5-19); Aspartate Amino Transferase 10 U/L (0-32); Blood Urea Nitrogen 7 mg/dL (6-20); Calcium 8.6 mg/dL (8.5-10.5); Carbon Dioxide 20 mmol/L (22-29); Chloride 106 mmol/L (98-107); Globulin 2.2 g/dL (1.3-4.6); Glomerular Filtration Rate 103.7 mL/min (90-130); Glucose 91 mg/dL (65-115); Osmolality Calculated 284 mOsm/kg (285-295); Potassium 3.7 mmol/L (3.5-5.1); Salicylate 0.4 mg/dL (3-10); Sodium 138 mmol/L (136-145); Total Bilirubin 0.3 mg/dL (0.15-1.2); Total Protein 6.3 g/dL (6.6-8.7)
[2022-02-12 11:36] LABS: Acetaminophen < 5.0 ug/mL (10-30)
--- NOTE | 2022-02-12 16:30 | PC.NURSE ---
Report called to HENNY Villar
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
[2022-02-12] MEDS: propranolol 20 mg Tablet 10 MG PO (20:20)
[2022-02-12] MEDS: CLONazepam 0.5 mg Tablet PO (20:20)
[2022-02-12 21:43] LABS: Amphetamines Screen Urine Negative (Negative); Barbiturates Screen Urine Negative (Negative); Benzodiazepines Screen Urine Positive (Negative); Cocaine Screen Urine Negative (Negative); Opiate Screen Urine Negative (Negative); PCP Screen Urine Negative (Negative); THC Screen Urine Positive (Negative)
[2022-02-13 06:00] VITALS: BP 116/64; PULSE 79; RESP 16; TEMP 37.3; O2SAT 98
[2022-02-13] MEDS: escitalopram 10 mg Tablet PO (09:09)
[2022-02-13] MEDS: propranolol 20 mg Tablet 10 MG PO ×3 (09:09→20:33)
[2022-02-13] MEDS: CLONazepam 0.5 mg Tablet PO (12:02)
[2022-02-13 14:00] VITALS: BP 117/70; PULSE 58; RESP 16; TEMP 36.6; O2SAT 98
--- NOTE | 2022-02-13 17:01 | W.PM.NPUPNS ---
Subjective NPU Subjective: Patient is a 22-year-old white female with generalized anxiety disorder depression with a recent history of intractable panic attacks with poor coping skills admitted after multiple trips to the emergency room with panic attacks and various anxiety related complaints. The patient continue to isolate her self in the milieu. She reported some improvement in sleep. She had requested that she be allowed to go home soon. She reported continued isolation and reported some frequent sleep continuity disruption. She reports continuing to feel that her anxiety was out of control. She had rejected groups and remained isolative on the milieu. She had reported an intolerance to being in crowded places with a fear of something bad happening to her. She had reported chronic irritability associated with her anxiety. She had reported some continued amotivation as well. Mental Status Exam MSE Comments: She is a thin white female who appeared younger than her stated age. She was less tearful on interview today. She appeared very anxious. Her gait appeared adequate. Her hygiene was fair. There was no evidence of any abnormal involuntary motor movements tics or tremors appreciated. Her thought process was linear logical and goal-directed. Her thought content showed no evidence of active homicidal or suicidal ideation. She had endorsed a sense of hopelessness. She did not appear to be responding to internal stimuli. There was no clear evidence of delusional thinking. Her mood was described as anxious. Her affect was mood congruent. Her insight remained poor. Her judgment is poor. Her impulse control appeared adequate. Vitals/I&O/Wt Last Vital Signs Temp 98 F 02/13/22 14:00 Pulse 58 L 02/13/22 14:00 Resp 16 02/13/22 14:00 BP 117/70 02/13/22 14:00 Pulse Ox 98 02/13/22 14:00 O2 Del Method 02/13/22 14:00 Weight last 48 hrs Weight 49.895 kg Data NPU : 02/12/22 11:10 02/12/22 11:10 A&P Assessment and plan (1) Major depressive disorder, recurrent episode, unspecified: (2) Generalized anxiety disorder: (3) Panic attacks: Plan Patient is a 22-year-old white female with generalized anxiety disorder panic attacks and depression with significant lack of social supports and inability to tolerate anxiety with significant genetic loading for anxiety disorders as well. 1.? Start Lexapro 10mg daily, Propranolol 10mg tid, Klonopin .25mg tid. Will monitor frequency of panic attacks, Patient will require CBT. 2.? Encourage individual, group and milieu therapy 3.? Continue q-15 minute check for safety 4.? Recommend sober living treatment at the highest level of care to which the patient is willing to commit. Involuntary Hold Information 96 Hour Hold: 96 Hour Involuntary Admission: No Attestations NPU Medical Necessity Statement*: Inpatient hospitalization is medically necessary and the clinically appropriate intervention at this time. We will monitor medications and make changes as indicated. Patient will continue to require acute inpatient hospitalization with likely length of stay three to five days. Coding Level of Care Code Established Pt Acute It Account Manager for Rodrigo Palmer Patient Type Established History Problem Focused Exam Problem Focused Medical Decision Making Straight Forward Diagnoses Major depressive disorder, recurrent episode, unspecified F33.9 Generalized anxiety disorder F41.1 Panic attacks F41.0
[2022-02-13] MEDS: CLONazepam 0.5 mg Tablet 0.25 MG PO (20:34)
[2022-02-13 21:41] VITALS: BP 122/85; PULSE 65; RESP 18; O2SAT 99
[2022-02-13] MEDS: trazodone 50 mg Tablet PO (21:58)
[2022-02-14 06:00] VITALS: BP 86/52; PULSE 67; RESP 15; O2SAT 99
[2022-02-14] MEDS: CLONazepam 0.5 mg Tablet 0.25 MG PO ×3 (09:37→20:54)
[2022-02-14] MEDS: propranolol 20 mg Tablet 10 MG PO ×2 (09:37→14:41)
[2022-02-14] MEDS: escitalopram 10 mg Tablet PO (09:37)
--- NOTE | 2022-02-14 09:48 | PC.NURSE ---
Behavioral Assessment Patient sitting on bench. Patient denies AH/VH and SI/HI. She states she felt very anxious when I was calling her name while she was in bed trying to wake her. She does state she doesn't feel anxious anymore. Patient expresses that she is feeling a bit depressed about her boyfriend not calling her back since last night. Patient calm and cooperative.
[2022-02-14] MEDS: bisacodyl 5 mg Tablet PO ×2 (13:17→18:59)
[2022-02-14 14:00] VITALS: BP 107/67; PULSE 65; RESP 16; TEMP 36.4; O2SAT 99
[2022-02-14] MEDS: ibuprofen 600 mg Tablet PO (14:44)
--- NOTE | 2022-02-14 15:34 | W.PM.NPUPNS ---
Subjective NPU Subjective: Patient is a 22-year-old white female with generalized anxiety disorder, depression with a recent history of intractable panic attacks with poor coping skills admitted after multiple trips to the emergency room with panic attacks and various anxiety related complaints. Patient had appeared more interactive on the milieu. She had stated that she felt much less anxious with the initiation of Klonopin. She did report feeling a bit tired and expressed concern about sedation. She reported improved sleep. She reported no side effects from her medication otherwise. She has been able to attend groups despite having difficulties being in crowds and generally avoiding people. Had expressed interest in attending therapy and states that she was feeling less hopeless. She had reported overall some depressed mood but denied any current thoughts of hurting herself. Mental Status Exam MSE Comments: She is a thin white female who appeared younger than her stated age. . Her gait appeared adequate. Her hygiene was fair. There was no evidence of any abnormal involuntary motor movements tics or tremors appreciated. Her thought process was linear logical and goal-directed. Her thought content showed no evidence of active homicidal or suicidal ideation. She did not appear to be responding to internal stimuli. There was no clear evidence of delusional thinking. Her mood was described as better. Her affect appeared less anxious. Her insight remained poor. Her judgment is improving. Her impulse control appeared adequate. Vitals/I&O/Wt Last Vital Signs Temp 97.5 F L 02/14/22 14:00 Pulse 65 02/14/22 14:00 Resp 16 02/14/22 14:00 BP 107/67 02/14/22 14:00 Pulse Ox 99 02/14/22 14:00 O2 Del Method 02/14/22 14:00 Data NPU : 02/12/22 11:10 02/12/22 11:10 A&P Assessment and plan (1) Major depressive disorder, recurrent episode, unspecified: (2) Generalized anxiety disorder: (3) Panic attacks: Plan Patient is a 22-year-old white female with generalized anxiety disorder panic attacks and depression with significant lack of social supports and inability to tolerate anxiety with significant genetic loading for anxiety disorders as well. 1.? Continue Lexapro 10mg daily, Decrease Propranolol 10mg bid, Klonopin .25mg tid. Will monitor frequency of panic attacks, Patient will require CBT. 2.? Encourage individual, group and milieu therapy 3.? Continue q-15 minute check for safety 4.? Recommend sober living treatment at the highest level of care to which the patient is willing to commit. Involuntary Hold Information 96 Hour Hold: 96 Hour Involuntary Admission: No Attestations NPU Medical Necessity Statement*: Inpatient hospitalization is medically necessary and the clinically appropriate intervention at this time. We will monitor medications and make changes as indicated. Patient will continue to require acute inpatient hospitalization with likely length of stay three to five days. Coding Level of Care Code Established Pt Acute Television Picture Tube Rebuilder for Chg Fwd Patient Type Established History Problem Focused Exam Problem Focused Medical Decision Making Straight Forward Diagnoses Major depressive disorder, recurrent episode, unspecified F33.9 Generalized anxiety disorder F41.1 Panic attacks F41.0
[2022-02-14 19:55] VITALS: BP 113/77; PULSE 61; RESP 16; TEMP 36.9; O2SAT 97
[2022-02-14] MEDS: trazodone 50 mg Tablet PO (21:46)
[2022-02-15 06:00] VITALS: BP 100/61; PULSE 64; RESP 14; TEMP 36.6; O2SAT 99
[2022-02-15] MEDS: propranolol 20 mg Tablet 10 MG PO ×2 (07:58→08:00)
[2022-02-15] MEDS: escitalopram 10 mg Tablet PO (07:59)
[2022-02-15] MEDS: CLONazepam 0.5 mg Tablet 0.25 MG PO (07:59)
[2022-02-15] MEDS: loperamide 2 mg Capsule PO (08:50)
--- NOTE | 2022-02-15 12:30 | W.PM.NPUPNS ---
Subjective NPU Subjective: Patient is a 22-year-old white female with generalized anxiety disorder, depression with a recent history of intractable panic attacks with poor coping skills admitted after multiple trips to the emergency room with panic attacks and various anxiety related complaints. Patient had reported feeling more anxious today. She reported some struggles with waking up in the morning here and feeling on edge with increased anxiety. She had reported having continued chronic worries about various things at home. She had reported feeling that her stress and anxiety were unmanageable. She had acknowledged depressed mood. She did not report any side effects from her Lexapro at this time. She had reported being able to attend groups with some anxiety noted today. She continued to report social anxiety with agoraphobia as well. Mental Status Exam MSE Comments: She is a thin white female who appeared younger than her stated age. . Her gait appeared adequate. Her hygiene was fair. There was no evidence of any abnormal involuntary motor movements tics or tremors appreciated. Her thought process was linear logical and goal-directed. Her thought content showed no evidence of active homicidal or suicidal ideation. She did not appear to be responding to internal stimuli. There was no clear evidence of delusional thinking. Her mood was described as anxious.. Her affect appeared mood congruent and restricted in range.. Her insight remained poor. Her judgment is improving. Her impulse control appeared adequate. Vitals/I&O/Wt Last Vital Signs Temp 97.8 F 02/15/22 06:00 Pulse 64 02/15/22 06:00 Resp 14 02/15/22 06:00 BP 100/61 02/15/22 06:00 Pulse Ox 99 02/15/22 06:00 O2 Del Method 02/15/22 06:00 Weight last 48 hrs Weight 48.194 kg Data NPU : 02/12/22 11:10 02/12/22 11:10 A&P Assessment and plan (1) Major depressive disorder, recurrent episode, unspecified: (2) Generalized anxiety disorder: (3) Panic attacks: Plan Patient is a 22-year-old white female with generalized anxiety disorder panic attacks and depression with significant lack of social supports and inability to tolerate anxiety with significant genetic loading for anxiety disorders as well. 1.? Continue Lexapro 10mg daily, Discontinue Propranolol 10mg bid, Increase Klonopin .5mg bid. Will monitor frequency of panic attacks, Patient will require CBT. 2.? Encourage individual, group and milieu therapy 3.? Continue q-15 minute check for safety 4.? Recommend sober living treatment at the highest level of care to which the patient is willing to commit. Involuntary Hold Information 96 Hour Hold: 96 Hour Involuntary Admission: No Attestations NPU Medical Necessity Statement*: Inpatient hospitalization is medically necessary and the clinically appropriate intervention at this time. We will monitor medications and make changes as indicated. Patient will continue to require acute inpatient hospitalization with likely length of stay three to five days. Coding Level of Care Code Established Pt Acute Program Coordinator Executive Education for Rodrigo Palmer Patient Type Established History Problem Focused Exam Problem Focused Medical Decision Making Straight Forward Diagnoses Major depressive disorder, recurrent episode, unspecified F33.9 Generalized anxiety disorder F41.1 Panic attacks F41.0
[2022-02-15 14:00] VITALS: BP 110/70; PULSE 58; RESP 16; TEMP 36.8; O2SAT 99
[2022-02-15] MEDS: CLONazepam 0.5 mg Tablet PO (17:38)
[2022-02-15] MEDS: trazodone 50 mg Tablet PO (19:28)
[2022-02-15] MEDS: nicotine 2 mg Gum BUCCAL (19:28)
[2022-02-15 21:34] VITALS: BP 121/75; PULSE 58; RESP 17; TEMP 36.7; O2SAT 99
[2022-02-16 06:00] VITALS: BP 102/63; PULSE 65; RESP 16; TEMP 36.4
[2022-02-16] MEDS: escitalopram 10 mg Tablet PO (08:12)
[2022-02-16] MEDS: CLONazepam 0.5 mg Tablet PO (08:12)
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
[2022-02-16 12:57] VITALS: BP 102/63; PULSE 65; RESP 16; TEMP 36.4
== END 2022-02-16 14:25 | disposition home or self-care (01) | DRG 880 ==
LOC: ER 10:27 → NP 02-13 02:37
PROVIDERS: Admitting Provider Psychiatry & Neurology Psychiatry; Emergency Provider Family Medicine; PCP Family Medicine; Visit Provider Psychiatry & Neurology Psychiatry
DX: F41.1 Generalized anxiety disorder (principal); F33.9 Major depressive disorder, recurrent, unspecified; F41.0 Panic disorder [episodic paroxysmal anxiety]; F17.200 Nicotine dependence, unspecified, uncomplicated; Z62.898 Other specified problems related to upbringing; Z62.811 Personal history of psychological abuse in childhood; Z63.5 Disruption of family by separation and divorce
CPT/HCPCS: 36415; 80053; 80306; 80307; 84703; 85025; 97150; 97165; 99285

== ENCOUNTER → 2022-03-10 10:16 | Outpatient (BNVA) | payer OTHER, MEDICAID, SELFPAY | PROVIDERS: PCP Family Medicine; Visit Provider Nurse Practitioner Psychiatric/Mental Health | DX: Z03.89 Encounter for observation for other suspected diseases and conditions ruled out (principal) | CPT/HCPCS: 80053; 81003; 84439; 84443; 85025 ==

== ENCOUNTER 2022-04-07 08:55 | Emergency (ER) | payer MEDICAID, SELFPAY ==
[2022-04-07] VITALS (7 sets, daily range): BP systolic 120–133; BP diastolic 68–89; PULSE 60; RESP 17; O2SAT 95–100; BMI 17.4
[2022-04-07 09:19] LABS: Basophils # 0.1 10^3/uL (0.0-0.1); Basophils % 0.6 %; Eosinophils # 0.2 10^3/uL (0.0-0.8); Eosinophils % 1.2 %; Hematocrit 41.1 % (37.0-47.0); Hemoglobin 13.1 g/dL (11.5-15.3); Lymphocytes # 2.1 10^3/uL (0.8-4.8); Lymphocytes % 11.5 %; Mean Corpuscular HGB Conc 31.9 g/dL (30.0-36.0); Mean Corpuscular Hemoglobin 26.8 pg (28.0-34.0); Monocytes # 0.9 10^3/uL (0.2-0.9); Monocytes % 4.8 %; Neutrophils # 14.66 10^3/uL (1.8-7.7); Neutrophils % 81.4 %; Nucleated Red Blood Cells % 0 %; Platelet Count 351 10^3/cmm (130-400); Red Blood Count 4.89 10^6/uL (4.1-5.3)
--- NOTE | 2022-04-07 09:30 | W.ED.NAVMDI ---
HPI - Nausea/Vomiting/Diarrhea General: Chief complaint: Nausea/Vomiting/Diarrhea Stated complaint: N/V Time Seen by Provider: 04/07/22 08:56 Source: patient Mode of arrival: EMS History of Present Illness: 22-year-old female who presents to the emergency room with complaints of abdominal discomfort nausea vomiting diarrhea. Patient has had previous admissions for severe anxiety issues. This was related to an adjustment disorder after disruption in her relationship. She is in the hospital for several days and discharged. She is on citalopram recently increased from 10-20 and she had been titrating off of Klonopin. She uses marijuana regularly at home. She has not smoked any today. She is extremely anxious when into the room. She denies any hematemesis or coffee-ground emesis showed very nausea but she has not actually thrown up she denies she has had some diarrhea but denies any hematochezia. No dysuria urgency or frequency no chest pain. MD elicited complaint: nausea and vomiting Onset (ago): hour(s) Associated nausea: Yes Associated abdominal pain: Yes Location of pain: Diffuse Radiation: diffuse Quality: cramping Exacerbating factors: none Relieving factors: none Associated symtoms: Reports altered mental status, anxiety, anorexia and nausea; Denies bloating, change in vision, chest pain, cough, diaphoresis, decreased urine output, dizziness, dysuria, epistaxis, fatigue, fecal incontinence, fevers/chills, headache(s), malaise, myalgias, numbness, palpitations, rash, short of breath, syncope, tenesmus, tinnitus or weakness Review of Systems Const: Denies: fever(s), chills, fatigue, malaise or diaphoresis Eyes: Denies: change in vision ENMT: Denies: tinnitus or epistaxis Card: Denies: chest pain, palpitations or syncope Resp: Denies: dyspnea, productive cough or non-productive cough GI: Reports: nausea; Denies: bloating or fecal incontinence : Denies: difficulty voiding, dysuria, urinary frequency or urinary urgency Musc: Denies: neck pain or back pain Skin/Breast: Denies: rash or pruritus Neuro: Denies: headache(s) or dizziness Psych: Reports: anxiety; Denies: depression PFSH ED PFSH: Medical History Anxiety Panic attack Psychiatric care Social History Smoking and tobacco status: never smoked Alcohol intake: former Former alcohol use details: The patient enjoys drinking at home. No drinking since admission. Female Reproductive History: Date of last menstrual period: 02/12/22 Physical Exam Const: EXAM LIMITATIONS: altered mental status GENERAL APPEARANCE: cooperative, comfortable and anxious ORIENTATION/CONSCIOUSNESS: Yes awake, Yes oriented to person, Yes oriented to place and Yes oriented to time HENMT: COMMON NORMALS: normocephalic, atraumatic and hearing grossly normal bilaterally HEAD & SCALP: normocephalic and atraumatic Resp: COMMON NORMALS: normal respiratory effort, No retractions, No use of accessory muscles and clear to auscultation bilaterally AUSCULTATION: clear to auscultation bilaterally Cardio: COMMON NORMALS: regular rate, regular rhythm and No murmurs present (Cardio) RATE: regular rate RHYTHM: regular rhythm GI: COMMON NORMALS: No hepatosplenomegaly present AUSCULTATION: Yes normoactive bowel sounds PALPATION: Yes Tenderness to palpation present (GI) (diffuse), No Guarding due to palpation present (GI) and Yes No hepatosplenomegaly present Extremity: COMMON NORMALS: normal to inspection, capillary refill normal, no clubbing, cyanosis or edema, no calf tenderness and no pedal edema Neuro: SENSORIUM/ORIENTATION: Yes oriented to person, Yes oriented to place and Yes oriented to time Skin: COMMON NORMALS: no rashes or lesions noted GENERAL SKIN EXAM: no rashes or lesions noted Course Vital Signs: Vital signs: Vital Signs Pulse Rate 60 04/07/22 08:57 Respiratory Rate 17 04/07/22 08:57 Blood Pressure 132/78 04/07/22 11:30 Pulse Oximetry 99 04/07/22 11:00 Oxygen Delivery Me thod 04/07/22 08:57 MDM - Nausea/Vomiting/Diarrhea Medical Decision Making Improved after fluids and antiemetics. Haldol and Versed given patient significant improvement resolution of abdominal discomfort and nausea. Repeat abdominal exam is completely benign there is no acute findings. No tenderness McBurney's point negative Nieves's McMurphy's. Urine showed ketones and some contamination but no sign of bladder infection. No significant hematuria. Her nausea and vomiting has resolved at this point. She does regularly use marijuana I suspect that did play a contributing factor. Discussed this with the patient. We will give her olanzapine and Ativan to use buccal if she has recurrence follow-up with her primary care. Lab Data 04/07/22 08:30 04/07/22 08:30 Laboratory Results WBC 18.0 10^3/uL (4.0-10.0) H 04/07/22 08:30 RBC 4.89 10^6/uL (4.1-5.3) 04/07/22 08:30 Hgb 13.1 g/dL (11.5-15.3) 04/07/22 08:30 Hct 41.1 % (37.0-47.0) 04/07/22 08:30 MCV 84.0 fl (81-99) 04/07/22 08:30 MCH 26.8 pg (28.0-34.0) L 04/07/22 08:30 MCHC 31.9 g/dL (30.0-36.0) 04/07/22 08:30 RDW 16.0 % (12.1-15.1) H 04/07/22 08:30 Plt Count 351 10^3/cmm (130-400) 04/07/22 08:30 MPV 10.0 fL (7.4-10.4) 04/07/22 08:30 Neut % (Auto) 81.4 % 04/07/22 08:30 Lymph % (Auto) 11.5 % 04/07/22 08:30 Major % (Auto) 4.8 % 04/07/22 08:30 Eos % (Auto) 1.2 % 04/07/22 08:30 Baso % (Auto) 0.6 % 04/07/22 08:30 Neut # (Auto) 14.66 10^3/uL (1.8-7.7) H 04/07/22 08:30 Lymph # (Auto) 2.1 10^3/uL (0.8-4.8) 04/07/22 08:30 Major # (Auto) 0.9 10^3/uL (0.2-0.9) 04/07/22 08:30 Eos # (Auto) 0.2 10^3/uL (0.0-0.8) 04/07/22 08:30 Baso # (Auto) 0.1 10^3/uL (0.0-0.1) 04/07/22 08:30 Nucleated RBC % (auto) 0 % 04/07/22 08:30 Nucleated RBCs # 0.0 /100WBC 04/07/22 08:30 Specimen Type Arterial 04/07/22 09:45 Sample Site Brachial, right 04/07/22 09:45 ABG pH 7.44 (7.35-7.45) 04/07/22 09:45 ABG pCO2 30.1 mmHg (35-45) L 04/07/22 09:45 ABG pO2 88.3 mmHg (80.0-100.0) 04/07/22 09:45 ABG HCO3 20.2 mmol/L (22-26) L 04/07/22 09:45 ABG O2 Saturation 98.1 04/07/22 09:45 ABG Base Excess -3.1 mmol/L (-2.0-2.0) L 04/07/22 09:45 Lane Test N/a 04/07/22 09:45 A-a O2 Gradient 3.2 mmHg (5-10) L 04/07/22 09:45 Hematocrit 35.8 % (37-47) L 04/07/22 09:45 Hgb O2 Saturation 96.2 % (95-100) 04/07/22 09:45 Carboxyhemoglobin 1.1 %THgb (0.4-20.1) 04/07/22 09:45 Methemoglobin 0.8 % (0.4-1.5) 04/07/22 09:45 Total Hemoglobin 11.7 g/dL (12-16) L 04/07/22 09:45 Sodium 141.0 mmol/L (131-143) 04/07/22 09:45 Potassium 3.2 mmol/L (3.5-5.0) L 04/07/22 09:45 Glucose 98.0 mg/dL (70-115) 04/07/22 09:45 Ionized Calcium 1.2 mmol/L (1.1-1.4) 04/07/22 09:45 O2 Delivery Device Room air 04/07/22 09:45 FiO2 21.0 % 04/07/22 09:45 Ski Production Supervisor ID [id number] 04/07/22 09:45 Sodium 140 mmol/L (136-145) 04/07/22 08:30 Potassium 3.8 mmol/L (3.5-5.1) 04/07/22 08:30 Chloride 106 mmol/L (98-107) 04/07/22 08:30 Carbon Dioxide 23 mmol/L (22-29) 04/07/22 08:30 Anion Gap 14.8 (5-19) 04/07/22 08:30 BUN 10 mg/dL (6-20) 04/07/22 08:30 Creatinine 0.8 mg/dL (0.5-0.9) 04/07/22 08:30 GFR Calculation 88.9 mL/min (90-130) L 04/07/22 08:30 Glucose 110 mg/dL (65-115) 04/07/22 08:30 Calculated Osmolality 290 mOsm/kg (285-295) 04/07/22 08:30 Calcium 9.8 mg/dL (8.5-10.5) 04/07/22 08:30 Total Bilirubin 0.7 mg/dL (0.15-1.2) 04/07/22 08:30 AST 17 U/L (0-32) 04/07/22 08:30 ALT 19 U/L (0-33) 04/07/22 08:30 Alkaline Phosphatase 83 U/L (35-105) 04/07/22 08:30 Total Protein 8.2 g/dL (6.6-8.7) 04/07/22 08:30 Albumin 4.6 g/dL (3.5-5.2) 04/07/22 08:30 Globulin 3.6 g/dL (1.3-4.6) 04/07/22 08:30 Lipase 20 U/L (13-60) 04/07/22 08:30 Urine Color Yellow (Yellow) 04/07/22 11:11 Urine Appearance Clear (CLEAR) 04/07/22 11:11 Urine pH 6 (5-7) 04/07/22 11:11 Ur Specific [place]ague 1.010 (1.005-1.030) 04/07/22 11:11 Urine Protein Neg (Negative) 04/07/22 11:11 Urine Glucose (UA) Norm (Normal) 04/07/22 11:11 Urine Ketones 1+ (Negative) H 04/07/22 11:11 Urine Blood Neg (Negative) 04/07/22 11:11 Urine Nitrate Negative (Negative) 04/07/22 11:11 Urine Bilirubin Neg (Negative) 04/07/22 11:11 Urine Urobilinogen Norm mg/dL (Negative) 04/07/22 11:11 Ur Leukocyte Esterase Negative (Negative) 04/07/22 11:11 Urine HCG, Qual Negative (Negative) 04/07/22 11:11 Discharge Plan Discharge Patient Disposition: Home Clinical Impression: Generalized anxiety disorder, Cannabinoid hyperemesis syndrome Condition: Stable Prescriptions: New olanzapine 10 mg tablet,disintegrating 10 mg PO BID PRN (Reason: nausea and vomitting) Qty: 14 0RF Ativan 2 mg tablet 2 mg buccal Q6H PRN (Reason: nausea and vomiting) Qty: 14 0RF No Action escitalopram oxalate 20 mg tablet 20 mg PO DAILY Qty: 30 0RF Rx Instructions: Take one tablet daily after completion of 10 mg dose tablets fluticasone propionate [Flonase Allergy Relief] 50 mcg/actuation spray,suspension 1 spray intranasal DAILY Qty: 16 0RF Rx Instructions: administer into each nostril clonazepam 0.5 mg Tablet 0.5 mg PO BID 30 Days Qty: 60 1RF Discharge Orders: Discharge ED (Routine); Ordered 04/07/22 Ordered By: James Prakash Referrals: Sarath Ramos MD [Primary Care Provider] - Discharge Diet: Usual diet Discharge Activity: Increase activity as tolerated Patient Instructions: Opioid Safety, Pain Management Activity Restrictions/Additional Instructions: Avoid use of marijuana products if possible. You can use the olanzapine and Ativan as needed for recurrent nausea and vomiting. Coding Level of Care Code ED Machine Pan Greaser for Chg Fwd Exam Detailed
[2022-04-07 09:35] LABS: Alanine Aminotransferase 19 U/L (0-33); Albumin Level 4.6 g/dL (3.5-5.2); Alkaline Phosphatase 83 U/L (35-105); Anion Gap 14.8 (5-19); Aspartate Amino Transferase 17 U/L (0-32); Blood Urea Nitrogen 10 mg/dL (6-20); Calcium 9.8 mg/dL (8.5-10.5); Carbon Dioxide 23 mmol/L (22-29); Chloride 106 mmol/L (98-107); Globulin 3.6 g/dL (1.3-4.6); Glomerular Filtration Rate 88.9 mL/min (90-130); Glucose 110 mg/dL (65-115); Lipase 20 U/L (13-60); Osmolality Calculated 290 mOsm/kg (285-295); Potassium 3.8 mmol/L (3.5-5.1); Sodium 140 mmol/L (136-145); Total Bilirubin 0.7 mg/dL (0.15-1.2); Total Protein 8.2 g/dL (6.6-8.7)
[2022-04-07] MEDS: sodium chloride 0.9% 1,000 ML 999 ML IV ×2 (09:39→10:41)
[2022-04-07] MEDS: haloperidol inj 5 mg/mL INJ 1 mL 2.5 MG IVP (09:41)
[2022-04-07] MEDS: midazolam 1 mg/mL INJ 2 mL 2 MG IVP (09:42)
[2022-04-07 09:56] LABS: ABG PCO2 30.1 mmHg (35-45); ABG PH Result 7.44 (7.35-7.45); Alveolar-Arterial Oxygen Gradi 3.2 mmHg (5-10); Arterial Blood Gas Hematocrit 35.8 % (37-47); Base Excess ABG -3.1 mmol/L (-2.0-2.0); Blood Gas Operator Identificat AMH; Blood Gas Sample Site Brachial, right; Blood Gas Sample Type Arterial; Carboxyhemoglobin 1.1 %THgb (0.4-20.1); HCO3 ABG 20.2 mmol/L (22-26); HGB O2 Sat 96.2 % (95-100); Ionized Calcium Level - ABG 1.2 mmol/L (1.1-1.4); Methemoglobin 0.8 % (0.4-1.5); Oxygen Device ROOM AIR; Oxygen Saturation ABG 98.1; PO2 ABG 88.3 mmHg (80.0-100.0); Potassium Level - ABG 3.2 mmol/L (3.5-5.0); Total Hemoglobin 11.7 g/dL (12-16)
[2022-04-07 11:15] LABS: Add Urine Microscopic? NO; Charge for UA Resulting for Rev
[2022-04-07 11:18] LABS: Bilirubin Urine Neg (Negative); Blood Urine Neg (Negative); Glucose Urine UA Norm (Normal); Ketones Urine 1+ (Negative); Leukocyte Esterase Urine Negative (Negative); Nitrate Urine Negative (Negative); Protein Urine Neg (Negative); Urine Appearance Clear (CLEAR); Urine Color Yellow (Yellow); Urobilinogen Urine Norm (Negative); pH Urine 6 (5-7)
== END 2022-04-07 11:52 | disposition home or self-care (01) ==
PROVIDERS: Emergency Provider Family Medicine; PCP Family Medicine
DX: F41.1 Generalized anxiety disorder (principal); R11.2 Nausea with vomiting, unspecified; F12.90 Cannabis use, unspecified, uncomplicated
CPT/HCPCS: 36600; 80051; 80053; 81003; 81025; 82330; 82805; 83690; 85025; 96361; 96374; 96375; 99284; J1630; J2250; J7030

== ENCOUNTER 2022-06-02 09:36 | Emergency (ER) | payer MEDICAID, SELFPAY ==
[2022-06-02 09:40] VITALS: BP 137/80; PULSE 56; RESP 18; TEMP 37.1; O2SAT 100
--- NOTE | 2022-06-02 09:54 | ED_ITS ---
HPI - Nausea/Vomiting/Diarrhea General: Chief complaint: Nausea/Vomiting/Diarrhea Stated complaint: CHEST PAIN/N/V Time Seen by Provider: 06/02/22 09:43 Source: patient and EMS Mode of arrival: EMS Limitations: no limitations History of Present Illness: Patient is a 22-year-old female presents to ED tod ay with complaint of chest pain, abdominal pain, nausea, vomiting, anxiety. Patient states she feels like she is having a panic attack. Patient has had multiple identical episodes previously. Patient states she used to be on escitalopram for her anxiety but stopped taking this. Patient is a habitual marijuana user. She states she has used daily ever since I was 16 . Patient has been diagnosed with hyperemesis cannabis syndrome previously. MD elicited complaint: nausea, vomiting, abdominal pain and other (chest pain, anxiety) Pertinent past history: cyclical vomiting and other (anxiety/panic attacks) Onset (ago): hour(s) Associated nausea: Yes Associated abdominal pain: Yes Location of pain: Diffuse Severity: moderate Quality: cramping Exacerbating factors: none Relieving factors: none Context: marijuana use Associated symtoms: Reports anxiety, chest pain and nausea; Denies dizziness, dysuria, fatigue, headache(s), malaise, palpitations or sync ope Treatment prior to arrival: none Review of Systems Const: Denies: fever(s), chills, body aches, fatigue or malaise Card: Reports: chest pain; Denies: palpitations, irregular heart rhythm, edema, swelling of feet/ankles, lightheadedness, syncope or pre-syncope Resp: Denies: dyspnea, productive cough, non-productive cough or chest eleuterio estion GI: Reports: abdominal pain, nausea and vomiting; Denies: change in bowel habits : Denies: flank pain or dysuria Musc: Denies: neck pain, back pain, extremity pain or joint pain Skin/Breast: Denies: rash Neuro: Denies: headache(s), numbness in extremities, weakness in extremities, sensory changes or dizziness Psych: Reports: anxiety PFSH ED PFSH: Medical History Anxiety Panic attack Psychiatric care Social History (Updated 06/02/22 @ 10:27 by LAURA Britt) Smoking and tobacco status: never smoked Alcohol intake: former Former alcohol use details: The patient enjoys drinking at home. No drinking since admission. Substance/Drug Use: current Substance/Drug use type: Marijuana Other substance/ drug use details: daily use since the age of 16 Female Reproductive History: Date of last menstrual period: 02/12/22 Physical Exam Const: COMMON NORMALS: average body habitus, patient oriented x3, no limitations, healthy appearing, alert and well nourished GENERAL APPEARANCE: cooperative and anxious ORIENTATION/CONSCIOUSNESS: Yes awake, Yes oriented to person, Yes oriented to place and Yes oriented to time HENMT: COMMON NORMALS: normocephalic and atraumatic HEAD & SCALP: normal to inspection, normocephalic and atraumatic Resp: COMMON NORMALS: normal respiratory effort and clear to auscultation bilaterally AUSCULTATION: clear to auscultation bilaterally Cardio: COMMON NORMALS: regular rate and regular rhythm RATE: regular rate RHYTHM: regular rhythm GI: COMMON NORMALS: Normal to inspection, nondistended, normoactive bowel sounds present, Soft to palpation, No hepatosplenomegaly present and no masses INSPECTION: Yes normal to inspection AUSCULTATION: Yes normoactive bowel sounds PALPATION: Yes Soft to palpation, Yes Tenderness to palpation present (GI) (diffusely), No Guarding due to palpation present (GI), No Rigid due to palpation and Yes No hepatosplenomegaly present : COMMON NORMALS: Yes no CVA tenderness BLADDER/KIDNEY EXAM: Yes no CVA tenderness Back/Pelvis: COMMON NORMALS: no CVA tenderness Extremity: COMMON NORMALS: normal to inspection GENERAL: Yes normal exam except as noted Neuro: ROVERTO COMA SCALE: document GCS findings Roverto coma scale eye opening: Spontaneous [place] coma scale verbal response: Orientated [place] coma scale motor response: Obey commands [place] coma scale total score: 15 COMMON NORMALS: patient oriented x3, moves all extremities, no focal motor deficits and no sensory deficits noted SENSORIUM/ORIENTATION: Yes alert, Yes oriented to person, Yes oriented to place and Yes oriented to time Psych: MOOD & AFFECT: Yes anxious Course Vital Signs: Vital signs: Vital Signs Temperature 98.8 F 06/02/22 09:40 Pulse Rate 72 06/02/22 10:13 Respiratory Rate 18 06/02/22 09:40 Blood Pressure 137/80 06/02/22 10:13 Pulse Oximetry 97 06/02/22 10:13 Oxygen Delivery Me thod 06/02/22 10:13 MDM - Nausea/Vomiting/Diarrhea Medical Decision Making Patient's history and presentation is almost identical to previous patients I have seen with cannabinoid hyperemesis syndrome. This would make sense given her cyclic vomiting history and history of habitual marijuana use over the past 6 years. Counseled patient extensively on marijuana use. I do not see any positive benefits from chronic/habitual use and urged her to stop using or at least cutting down significantly. Also recommend she restart her escitalopram- not sure why she decided to stop this medication. Recommend she follow up with PCP within a week or so for re-evaluation. Return to ED precautions given. Lab Data 06/02/22 09:14 06/02/22 09:14 Laboratory Results WBC 16.2 10^3/uL (4.0-10.0) H 06/02/22 09:14 RBC 4.98 10^6/uL (4.1-5.3) 06/02/22 09:14 Hgb 13.1 g/dL (11.5-15.3) 06/02/22 09:14 Hct 41.5 % (37.0-47.0) 06/02/22 09:14 MCV 83.3 fl (81-99) 06/02/22 09:14 MCH 26.3 pg (28.0-34.0) L 06/02/22 09:14 MCHC 31.6 g/dL (30.0-36.0) 06/02/22 09:14 RDW 15.0 % (12.1-15.1) 06/02/22 09:14 Plt Count 362 10^3/cmm (130-400) 06/02/22 09:14 MPV 9.7 fL (7.4-10.4) 06/02/22 09:14 Neut % (Auto) 85.9 % 06/02/22 09:14 Lymph % (Auto) 8.6 % 06/02/22 09:14 Weber % (Auto) 4.1 % 06/02/22 09:14 Eos % (Auto) 0.6 % 06/02/22 09:14 Baso % (Auto) 0.5 % 06/02/22 09:14 Neut # (Auto) 13.87 10^3/uL (1.8-7.7) H 06/02/22 09:14 Lymph # (Auto) 1.4 10^3/uL (0.8-4.8) 06/02/22 09:14 Weber # (Auto) 0.7 10^3/uL (0.2-0.9) 06/02/22 09:14 Eos # (Auto) 0.1 10^3/uL (0.0-0.8) 06/02/22 09:14 Baso # (Auto) 0.1 10^3/uL (0.0-0.1) 06/02/22 09:14 Nucleated RBC % (auto) 0 % 06/02/22 09:14 Nucleated RBCs # 0.0 /100WBC 06/02/22 09:14 Sodium 138 mmol/L (136-145) 06/02/22 09:14 Potassium 3.9 mmol/L (3.5-5.1) 06/02/22 09:14 Chloride 103 mmol/L (98-107) 06/02/22 09:14 Carbon Dioxide 23 mmol/L (22-29) 06/02/22 09:14 Anion Gap 15.9 (5-19) 06/02/22 09:14 BUN 8 mg/dL (6-20) 06/02/22 09:14 Creatinine 0.6 mg/dL (0.5-0.9) 06/02/22 09:14 GFR Calculation 123.9 mL/min (90-130) 06/02/22 09:14 Glucose 101 mg/dL (65-115) 06/02/22 09:14 Calculated Osmolality 284 mOsm/kg (285-295) L 06/02/22 09:14 Calcium 9.9 mg/dL (8.5-10.5) 06/02/22 09:14 HCG, Qual Negative (Negative) 06/02/22 09:14 Discharge Plan Discharge Patient Disposition: Home Clinical Impression: Cannabinoid hyperemesis syndrome Condition: Stable Prescriptions: New ondansetron 4 mg tablet,disintegrating 4 mg PO Q8H PRN (Reason: nausea and vomiting) Qty: 14 0RF No Action escitalopram oxalate 20 mg tablet 20 mg PO DAILY Qty: 30 0RF Xulane 150-35 mcg/24 hr patch weekly 1 patch transdermal Q21D Discharge Orders: Discharge ED (Routine); Ordered 06/02/22 Ordered By: Jasmyn Herring Referrals: Sarath Ramos MD [Primary Care Provider] - Coding Level of Care Code ED Administrative Services Assistant for Chg Fwd Exam Comprehensive
[2022-06-02 09:57] LABS: Basophils # 0.1 10^3/uL (0.0-0.1); Basophils % 0.5 %; Eosinophils # 0.1 10^3/uL (0.0-0.8); Eosinophils % 0.6 %; Hematocrit 41.5 % (37.0-47.0); Hemoglobin 13.1 g/dL (11.5-15.3); Lymphocytes # 1.4 10^3/uL (0.8-4.8); Lymphocytes % 8.6 %; Mean Corpuscular HGB Conc 31.6 g/dL (30.0-36.0); Mean Corpuscular Hemoglobin 26.3 pg (28.0-34.0); Mean Corpuscular Volume 83.3 fl (81-99); Mean Platelet Volume 9.7 fL (7.4-10.4); Monocytes # 0.7 10^3/uL (0.2-0.9); Monocytes % 4.1 %; Neutrophils # 13.87 10^3/uL (1.8-7.7); Neutrophils % 85.9 %; Nucleated Red Blood Cells % 0 %; Platelet Count 362 10^3/cmm (130-400); Red Blood Count 4.98 10^6/uL (4.1-5.3); White Blood Count 16.2 10^3/uL (4.0-10.0)
[2022-06-02] MEDS: sodium chloride 0.9% 1,000 ML 999 ML IV ×2 (10:06→10:42)
[2022-06-02] MEDS: LORazepam 2 mg/mL INJ 1 mL IVP (10:08)
[2022-06-02] MEDS: haloperidol inj 5 mg/mL INJ 1 mL 2.5 MG IVP (10:09)
[2022-06-02 10:13] VITALS: BP 137/80; PULSE 72; O2SAT 97
[2022-06-02 10:27] LABS: Anion Gap 15.9 (5-19); Blood Urea Nitrogen 8 mg/dL (6-20); Calcium 9.9 mg/dL (8.5-10.5); Carbon Dioxide 23 mmol/L (22-29); Chloride 103 mmol/L (98-107); Glomerular Filtration Rate 123.9 mL/min (90-130); Glucose 101 mg/dL (65-115); Osmolality Calculated 284 mOsm/kg (285-295); Potassium 3.9 mmol/L (3.5-5.1); Sodium 138 mmol/L (136-145)
[2022-06-02 10:42] LABS: HCG, Serum Qual Negative (Negative)
[2022-06-02 11:16] VITALS: BP 122/69; PULSE 78; RESP 16; O2SAT 98
== END 2022-06-02 11:17 | disposition home or self-care (01) ==
PROVIDERS: Family Medicine; Emergency Provider Physician Assistant; PCP Family Medicine
DX: R11.2 Nausea with vomiting, unspecified (principal); F12.90 Cannabis use, unspecified, uncomplicated
CPT/HCPCS: 80048; 84703; 85025; 96361; 96374; 96375; 99284; J1630; J2060; J7030

== ENCOUNTER 2022-08-06 06:32 | Emergency (ER) | payer MEDICAID, SELFPAY ==
[2022-08-06 06:38] VITALS: BP 130/77; PULSE 83; RESP 24; TEMP 36.6; O2SAT 100; BMI 18.6
--- NOTE | 2022-08-06 06:54 | W.ED.NAVMDI ---
HPI - Nausea/Vomiting/Diarrhea General: Chief complaint: Nausea/Vomiting/Diarrhea Stated complaint: N/V/D Time Seen by Provider: 08/06/22 06:46 History of Present Illness: Pt comes in with n/v/d that started yesterday and has persisted. States that her kids recently had similar symptoms, and have improved. States that she is having abd pain, which she describes as sharp, epigastric, no radiation, constant. Denies fever, cough, or congestion. States that she hasn't tried any medication for the diarrhea or nausea. Associated nausea: Yes Associated symtoms: Reports nausea; Denies anxiety, change in vision, chest pain, dysuria, headache(s) or palpitations Review of Systems Const: Denies: fever(s) or body aches Eyes: Denies: change in vision or blurry vision ENMT: Denies: throat pain or odynophagia Card: Denies: chest pain or palpitations Resp: Denies: dyspnea or productive cough GI: Reports: abdominal pain, nausea, vomiting and diarrhea : Denies: flank pain or dysuria Musc: Denies: neck pain or back pain Skin/Breast: Denies: rash or pruritus Neuro: Denies: headache(s) or numbness in extremities Psych: Denies: anxiety or change in appetite Endo: Denies: polyuria or excessive sweating PFSH ED PFSH: Medical History Anxiety Panic attack Psychiatric care Social History (Updated 06/02/22 @ 10:27 by LAURA Britt) Smoking and tobacco status: never smoked Alcohol intake: former Former alcohol use details: The patient enjoys drinking at home. No drinking since admission. Physical Exam Const: COMMON NORMALS: patient oriented x3, healthy appearing and alert OTHER: Tearful throughout exam HENMT: COMMON NORMALS: normocephalic and atraumatic HEAD & SCALP: normocephalic and atraumatic Eye: COMMON NORMALS: Equal, round and reactive pupils present and EOMs intact bilaterally PUPIL: Yes Equal, round and reactive pupils present Neck/C-Spine: COMMON NORMALS: full ROM and supple Resp: COMMON NORMALS: normal respiratory effort, No retractions and No use of accessory muscles Cardio: COMMON NORMALS: regular rate and regular rhythm RATE: regular rate RHYTHM: regular rhythm GI: COMMON NORMALS: Normal to inspection, nondistended, normoactive bowel sounds present, Soft to palpation and non-tender PALPATION: Yes Soft to palpation Back/Pelvis: COMMON NORMALS: thoracic and lumbar spine normal to inspection and no thoracic nor lumbar tenderness Extremity: COMMON NORMALS: normal to inspection and full ROM Neuro: COMMON NORMALS: patient oriented x3 SENSORIUM/ORIENTATION: Yes alert Psych: COMMON NORMALS: mental status grossly normal and cooperative Skin: COMMON NORMALS: no rashes or lesions noted and no wounds GENERAL SKIN EXAM: no rashes or lesions noted Course Vital Signs: Vital signs: Vital Signs Temperature 97.8 F 08/06/22 06:38 Pulse Rate 78 08/06/22 08:00 Respiratory Rate 24 H 08/06/22 06:38 Blood Pressure 123/66 08/06/22 08:00 Pulse Oximetry 99 08/06/22 08:00 Oxygen Delivery Me thod 08/06/22 08:00 MDM - Nausea/Vomiting/Diarrhea Medical Decision Making Pt comes in with n/v/d that started yesterday and has persisted. States that her kids recently had similar symptoms, and have improved. States that she is having abd pain, which she describes as sharp, epigastric, no radiation, constant. Denies fever, cough, or congestion. States that she hasn't tried any medication for the diarrhea or nausea. On PE her abd is soft, non-tender, non-distended. Pt has been seen in the past multiple times for similar symptoms with a diagnosis of cannabis induced hyperemesis. She states that this feels different than those times. States that she has taken 4 showers this morning becuase she feels better while in the shower. Will check labs, give IV Fluids, treat nausea with IV zofran, and reassess. On reassessment I talked with the patient about her test results, including the elevated white blood cell count. Her creatinine is within normal limits. She is not thrown up here. She states she has Zofran at home and is asking to be discharged. Will discharge home at this time with precautions to return for worsening or changing symptoms. Lab Data 08/06/22 06:44 08/06/22 06:44 Laboratory Results WBC 13.4 10^3/uL (4.0-10.0) H 08/06/22 06:44 RBC 4.90 10^6/uL (4.1-5.3) 08/06/22 06:44 Hgb 12.7 g/dL (11.5-15.3) 08/06/22 06:44 Hct 39.6 % (37.0-47.0) 08/06/22 06:44 MCV 80.8 fl (81-99) L 08/06/22 06:44 MCH 25.9 pg (28.0-34.0) L 08/06/22 06:44 MCHC 32.1 g/dL (30.0-36.0) 08/06/22 06:44 RDW 14.7 % (12.1-15.1) 08/06/22 06:44 Plt Count 350 10^3/cmm (130-400) 08/06/22 06:44 MPV 9.8 fL (7.4-10.4) 08/06/22 06:44 Neut % (Auto) 78.1 % 08/06/22 06:44 Lymph % (Auto) 13.0 % 08/06/22 06:44 Butler % (Auto) 7.1 % 08/06/22 06:44 Eos % (Auto) 1.0 % 08/06/22 06:44 Baso % (Auto) 0.4 % 08/06/22 06:44 Neut # (Auto) 10.46 10^3/uL (1.8-7.7) H 08/06/22 06:44 Lymph # (Auto) 1.8 10^3/uL (0.8-4.8) 08/06/22 06:44 Butler # (Auto) 1.0 10^3/uL (0.2-0.9) H 08/06/22 06:44 Eos # (Auto) 0.1 10^3/uL (0.0-0.8) 08/06/22 06:44 Baso # (Auto) 0.1 10^3/uL (0.0-0.1) 08/06/22 06:44 Nucleated RBC % (auto) 0 % 08/06/22 06:44 Nucleated RBCs # 0.0 /100WBC 08/06/22 06:44 Sodium 137 mmol/L (136-145) 08/06/22 06:44 Potassium 3.4 mmol/L (3.5-5.1) L 08/06/22 06:44 Chloride 104 mmol/L (98-107) 08/06/22 06:44 Carbon Dioxide 20 mmol/L (22-29) L 08/06/22 06:44 Anion Gap 16.4 (5-19) 08/06/22 06:44 BUN 5 mg/dL (6-20) L 08/06/22 06:44 Creatinine 0.8 mg/dL (0.5-0.9) 08/06/22 06:44 GFR Calculation 88.9 mL/min (90-130) L 08/06/22 06:44 Glucose 111 mg/dL (65-115) 08/06/22 06:44 Calculated Osmolality 282 mOsm/kg (285-295) L 08/06/22 06:44 Calcium 9.1 mg/dL (8.5-10.5) 08/06/22 06:44 Total Bilirubin 0.3 mg/dL (0.15-1.2) 08/06/22 06:44 AST 15 U/L (0-32) 08/06/22 06:44 ALT 12 U/L (0-33) 08/06/22 06:44 Alkaline Phosphatase 79 U/L (35-105) 08/06/22 06:44 Total Protein 7.5 g/dL (6.6-8.7) 08/06/22 06:44 Albumin 4.2 g/dL (3.5-5.2) 08/06/22 06:44 Globulin 3.3 g/dL (1.3-4.6) 08/06/22 06:44 Lipase 14 U/L (13-60) 08/06/22 06:44 Discharge Plan Discharge Patient Disposition: Home Clinical Impression: Nausea vomiting and diarrhea Condition: Stable Prescriptions: No Action escitalopram oxalate 20 mg tablet 20 mg PO DAILY Qty: 30 0RF Xulane 150-35 mcg/24 hr patch weekly 1 patch transdermal Q21D ondansetron 4 mg tablet,disintegrating 4 mg PO Q8H PRN (Reason: nausea and vomiting) Qty: 14 0RF Discharge Orders: Discharge ED (Routine); Ordered 08/06/22 Ordered By: Scar Cook Referrals: Sarath Ramos MD [Primary Care Provider] - Patient Instructions: Acute Nausea and Vomiting (ED) Coding Level of Care Code ED Drawing In Machine Tender for Rodrigo Palmer
[2022-08-06 07:02] LABS: Basophils # 0.1 10^3/uL (0.0-0.1); Basophils % 0.4 %; Eosinophils # 0.1 10^3/uL (0.0-0.8); Hematocrit 39.6 % (37.0-47.0); Hemoglobin 12.7 g/dL (11.5-15.3); Lymphocytes # 1.8 10^3/uL (0.8-4.8); Mean Corpuscular HGB Conc 32.1 g/dL (30.0-36.0); Mean Corpuscular Hemoglobin 25.9 pg (28.0-34.0); Mean Corpuscular Volume 80.8 fl (81-99); Mean Platelet Volume 9.8 fL (7.4-10.4); Monocytes % 7.1 %; Neutrophils # 10.46 10^3/uL (1.8-7.7); Neutrophils % 78.1 %; Nucleated Red Blood Cells % 0 %; Platelet Count 350 10^3/cmm (130-400); Red Cell Distribution Width 14.7 % (12.1-15.1); White Blood Count 13.4 10^3/uL (4.0-10.0)
[2022-08-06] MEDS: ondansetron 2 mg/ML SDV 2 mL 4 MG IVP (07:05)
[2022-08-06] MEDS: sodium chloride 0.9% 1,000 ML 999 ML IV (07:06)
[2022-08-06] MEDS: ketorolac 30 mg/mL INJ 15 MG IVP (07:06)
[2022-08-06 07:10] VITALS: BP 130/77; PULSE 66; O2SAT 100
[2022-08-06 07:14] LABS: Alanine Aminotransferase 12 U/L (0-33); Albumin Level 4.2 g/dL (3.5-5.2); Alkaline Phosphatase 79 U/L (35-105); Anion Gap 16.4 (5-19); Aspartate Amino Transferase 15 U/L (0-32); Blood Urea Nitrogen 5 mg/dL (6-20); Calcium 9.1 mg/dL (8.5-10.5); Carbon Dioxide 20 mmol/L (22-29); Chloride 104 mmol/L (98-107); Globulin 3.3 g/dL (1.3-4.6); Glomerular Filtration Rate 88.9 mL/min (90-130); Glucose 111 mg/dL (65-115); Lipase 14 U/L (13-60); Osmolality Calculated 282 mOsm/kg (285-295); Potassium 3.4 mmol/L (3.5-5.1); Sodium 137 mmol/L (136-145); Total Bilirubin 0.3 mg/dL (0.15-1.2); Total Protein 7.5 g/dL (6.6-8.7)
[2022-08-06] MEDS: prochlorperazine 10 mg/2 mL Inj IVP (07:57)
[2022-08-06 08:00] VITALS: BP 123/66; PULSE 78; O2SAT 99
== END 2022-08-06 08:18 | disposition home or self-care (01) ==
PROVIDERS: Emergency Provider Emergency Medicine; PCP Family Medicine
DX: R11.2 Nausea with vomiting, unspecified (principal); R19.7 Diarrhea, unspecified
CPT/HCPCS: 80053; 83690; 85025; 96361; 96374; 96375; 99284; J0780; J1885; J2405; J7030

== ENCOUNTER 2022-09-11 07:03 | Emergency (ER) | payer MEDICAID, SELFPAY ==
[2022-09-11 07:08] VITALS: BP 87/68; PULSE 89; RESP 18; TEMP 36.6; O2SAT 100; BMI 17.4
--- NOTE | 2022-09-11 07:21 | ED_ITS ---
HPI - Nausea/Vomiting/Diarrhea General: Chief complaint: Nausea/Vomiting/Diarrhea Stated complaint: n/v Time Seen by Provider: 09/11/22 07:06 History of Present Illness: Patient is a 22-year-old female who comes to the ED with nausea and vomiting. She was seen here in the ED for same complaint back on August 06, 2022. Symptoms started this morning when she woke up at 4:30 AM. She describes having acute nausea and vomiting and some shortness of breath. Patient has had similar s ymptoms in the past. Her symptoms improved when she took a hot shower this morning. Patient does admit to being a daily marijuana user. Patient denies being currently and says her last menstrual period was approximately 3 weeks ago. Denies any fevers, chest pain, abdominal pain, bladder or bowel symptoms. Associated nausea: Yes Associated symtoms: Reports nausea; Denies change in vision, chest pain, dysuria, fatigue, headache(s) or palpitations Review of Systems Const: Denies: fever(s), chills or fatigue Eyes: Denies: change in vision or eye discomfort ENMT: Denies: throat pain, odynophagia, nasal discharge or nasal congestion Card: Denies: chest pain, palpitations, edema, swelling of feet/ankles, dyspnea on exertion or orthopnea Resp: Denies: dyspnea, productive cough or non-productive cough GI: Reports: nausea and vomiting; Denies: abdominal pain, diarrhea, constipation or hematochezia : Denies: flank pain, dysuria or hematuria Musc: Denies: neck pain, back pain or extremity swelling Skin/Breast: Denies: rash or new lesions Neuro: Denies: headache(s), numbness in extremities or weakness in extremities [facility] ED PFSH: Medical History (Updated 09/11/22 @ 09:14 by LAURA Salmon) Anxiety Cannabis abuse The following information retrieved/edited from Behavior Assessment Report completed on 02/18/22: Donna meets the diagnostic criteria for F12.10 Cannabis Use Disorder, mild in that she reports: not managing to do what you should at work, home, or school because of substance use; continuing to use, even when it causes problems in relationships; continuing to use, even when you know you have a physical or psychological problem that could have been caused or made worse by the substance; and needing more of the substance to get the effect you want (tolerance). No pertinent family history Panic attack Psychiatric care Social History (Updated 06/02/22 @ 10:27 by LAURA Britt) Smoking and tobacco status: never smoked Alcohol intake: former Former alcohol use details: The patient enjoys drinking at home. No drinking since admission. Substance/Drug Use: current Other substance/drug use details: daily use since the age of 16 Physical Exam Const: COMMON NORMALS: no acute distress, patient oriented x3 and alert GENERAL APPEARANCE: cooperative HENMT: COMMON NORMALS: normocephalic HEAD & SCALP: normocephalic MOUTH: Normal oral and palatal mucosa present THROAT: posterior oropharynx normal and uvula midline Neck/C-Spine: COMMON NORMALS: supple GENERAL: Yes normal visual inspection Resp: COMMON NORMALS: normal respiratory effort, No retractions, No use of accessory muscles and clear to auscultation bilaterally AUSCULTATION: clear to auscultation bilaterally Cardio: COMMON NORMALS: regular rate, regular rhythm, S1 normal heart sound present, S2 normal heart sound present, No gallops present (Cardio), No clicks present (Cardio), No murmurs present (Cardio) and Peripheral pulses 2+ throughout RATE: regular rate RHYTHM: regular rhythm HEART SOUNDS: S1 normal heart sound present and S2 normal heart sound present PERIPHERAL PULSES: Peripheral pulses 2+ throughout GI: COMMON NORMALS: Normal to inspection, nondistended, normoactive bowel s ounds present, Soft to palpation, non-tender and no masses PALPATION: Yes Soft to palpation : COMMON NORMALS: Yes no CVA tenderness BLADDER/KIDNEY EXAM: Yes no CVA tenderness Back/Pelvis: COMMON NORMALS: no CVA tenderness Extremity: COMMON NORMALS: normal to inspection Neuro: COMMON NORMALS: patient oriented x3 SENSORIUM/ORIENTATION: Yes alert GAIT: Yes Normal gait present Skin: GENERAL SKIN EXAM: dry skin Course Vital Signs: Vital signs: Vital Signs Temperature 97.9 F 09/11/22 07:08 Pulse Rate 102 H 09/11/22 09:25 Respiratory Rate 16 09/11/22 09:25 Blood Pressure 131/69 09/11/22 09:25 Pulse Oximetry 96 09/11/22 09:25 Oxygen Delivery Me thod Room Air 09/11/22 08:46 MDM - Nausea/Vomiting/Diarrhea Medical Decision Making Patient is a 22-year-old female who comes to the ED with nausea and vomiting. She was seen here in the ED for same complaint back on August 06, 2022. Symptoms started this morning when she woke up at 4:30 AM. She describes having acute nausea and vomiting and some shortness of breath. Patient has had similar symptoms in the past. Her symptoms improved when she took a hot shower this morning. Patient does admit to being a daily marijuana user. Patient denies being currently and says her last menstrual period was approximately 3 weeks ago. Denies any fevers, chest pain, abdominal pain, bladder or bowel symptoms. Vitals are stable. Exam patient is benign. She has a white blood cell count of 17.8 but the rest of her labs are unremarkable. She was given a liter of IV fluids and nausea meds and her symptoms resolved. She was able to tolerate p.o. fluids and had no episodes of emesis here in the ED after treatment. She was stable for discharge home and cannabinoid hyperemesis syndrome and was sent home with a prescription for Reglan. Return ED precautions given. Follow-up with PCP in the next week for reevaluation. Patient understood and agreed with plan. Lab Data I reviewed the patient's lab results. 09/11/22 07:30 09/11/22 07:30 Laboratory Results WBC 17.8 10^3/uL (4.0-10.0) H 09/11/22 07:30 RBC 4.88 10^6/uL (4.1-5.3) 09/11/22 07:30 Hgb 12.5 g/dL (11.5-15.3) 09/11/22 07:30 Hct 39.2 % (37.0-47.0) 09/11/22 07:30 MCV 80.3 fl (81-99) L 09/11/22 07:30 MCH 25.6 pg (28.0-34.0) L 09/11/22 07:30 MCHC 31.9 g/dL (30.0-36.0) 09/11/22 07:30 RDW 15.7 % (12.1-15.1) H 09/11/22 07:30 Plt Count 389 10^3/cmm (130-400) 09/11/22 07:30 MPV 9.8 fL (7.4-10.4) 09/11/22 07:30 Neut % (Auto) 77.2 % 09/11/22 07:30 Lymph % (Auto) 16.2 % 09/11/22 07:30 Merrick % (Auto) 4.1 % 09/11/22 07:30 Eos % (Auto) 1.4 % 09/11/22 07:30 Baso % (Auto) 0.8 % 09/11/22 07:30 Neut # (Auto) 13.73 10^3/uL (1.8-7.7) H 09/11/22 07:30 Lymph # (Auto) 2.9 10^3/uL (0.8-4.8) 09/11/22 07:30 Merrick # (Auto) 0.7 10^3/uL (0.2-0.9) 09/11/22 07:30 Eos # (Auto) 0.3 10^3/uL (0.0-0.8) 09/11/22 07:30 Baso # (Auto) 0.1 10^3/uL (0.0-0.1) 09/11/22 07:30 Nucleated RBC % (auto) 0 % 09/11/22 07: Nucleated RBCs # 0.0 /100WBC 09/11/22 07:30 Sodium 137 mmol/L (136-145) 09/11/22 07:30 Potassium 3.6 mmol/L (3.5-5.1) 09/11/22 07:30 Chloride 101 mmol/L (98-107) 09/11/22 07:30 Carbon Dioxide 21 mmol/L (22-29) L 09/11/22 07:30 Anion Gap 18.6 (5-19) 09/11/22 07:30 BUN 7 mg/dL (6-20) 09/11/22 07:30 Creatinine 0.8 mg/dL (0.5-0.9) 09/11/22 07:30 GFR Calculation 88.9 mL/min (90-130) L 09/11/22 07:30 Glucose 94 mg/dL (65-115) 09/11/22 07:30 Calculated Osmolality 282 mOsm/kg (285-295) L 09/11/22 07:30 Calcium 9.0 mg/dL (8.5-10.5) 09/11/22 07:30 Total Bilirubin 0.3 mg/dL (0.15-1.2) 09/11/22 07:30 AST 15 U/L (0-32) 09/11/22 07:30 ALT 9 U/L (0-33) 09/11/22 07:30 Alkaline Phosphatase 72 U/L (35-105) 09/11/22 07:30 Total Protein 8.1 g/dL (6.6-8.7) 09/11/22 07:30 Albumin 4.6 g/dL (3.5-5.2) 09/11/22 07:30 Globulin 3.5 g/dL (1.3-4.6) 09/11/22 07:30 Lipase 17 U/L (13-60) 09/11/22 07:30 HCG, Qual Negative (Negative) 09/11/22 07:30 Discharge Plan Discharge Patient Disposition: Home Clinical Impression: Cannabinoid hyperemesis syndrome Condition: Stable Prescriptions: New Reglan 10 mg tablet 10 mg PO Q6H PRN (Reason: nausea and vomiting) Qty: 20 0RF No Action escitalopram oxalate 20 mg tablet 20 mg PO DAILY Qty: 30 0RF Xulane 150-35 mcg/24 hr patch weekly 1 patch transdermal Q21D ondansetron 4 mg tablet,disintegrating 4 mg PO Q8H PRN (Reason: nausea and vomiting) Qty: 14 0RF Discharge Orders: Discharge ED (Routine); Ordered 09/11/22 Ordered By: Sarath Andrade Referrals: Sarath Ramos MD [Primary Care Provider] - Discharge Diet: Regular Discharge Activity: Increase activity as tolerated Activity Restrictions/Additional Instructions: Follow-up with medical provider as directed in the next 5 to 7 days for reevaluation. Take medications as prescribed. Drink plenty fluids and stay hydrated. Return to the ER or your medical provider if condition worsens. Please read and understand discharge instructions. Thank you for choosing [facility] for your healthcare needs today. Please realize this is an emergency room and that we are providing you with a medical screening exam and this may not be complete and all inclusive of all the testing and or work up that you may need to determine your ailment or severity of your illness. It is very important that you follow up as instructed or that you return to the Emergency Department should you have concerns or if your condition changes or worsens in any way. Coding Level of Care Code ED Forging Press Lever Tender for Rodrigo Palmer
[2022-09-11 07:22] VITALS: BP 87/68; PULSE 74; RESP 16; O2SAT 99
[2022-09-11] MEDS: LORazepam 2 mg/mL INJ 1 mL 1 MG IVP (07:26)
[2022-09-11] MEDS: metoclopramide 5 mg/mL SDV 2 mL 10 MG IVP (07:27)
[2022-09-11] MEDS: sodium chloride 0.9% 1,000 ML 999 ML IV (07:27)
[2022-09-11 07:42] LABS: Basophils # 0.1 10^3/uL (0.0-0.1); Basophils % 0.8 %; Eosinophils # 0.3 10^3/uL (0.0-0.8); Eosinophils % 1.4 %; Hematocrit 39.2 % (37.0-47.0); Hemoglobin 12.5 g/dL (11.5-15.3); Lymphocytes # 2.9 10^3/uL (0.8-4.8); Lymphocytes % 16.2 %; Mean Corpuscular HGB Conc 31.9 g/dL (30.0-36.0); Mean Corpuscular Hemoglobin 25.6 pg (28.0-34.0); Mean Corpuscular Volume 80.3 fl (81-99); Mean Platelet Volume 9.8 fL (7.4-10.4); Monocytes # 0.7 10^3/uL (0.2-0.9); Monocytes % 4.1 %; Neutrophils # 13.73 10^3/uL (1.8-7.7); Neutrophils % 77.2 %; Nucleated Red Blood Cells % 0 %; Platelet Count 389 10^3/cmm (130-400); Red Blood Count 4.88 10^6/uL (4.1-5.3); Red Cell Distribution Width 15.7 % (12.1-15.1); White Blood Count 17.8 10^3/uL (4.0-10.0)
[2022-09-11 08:00] LABS: HCG, Serum Qual Negative (Negative)
[2022-09-11 08:03] LABS: Alanine Aminotransferase 9 U/L (0-33); Albumin Level 4.6 g/dL (3.5-5.2); Alkaline Phosphatase 72 U/L (35-105); Anion Gap 18.6 (5-19); Aspartate Amino Transferase 15 U/L (0-32); Blood Urea Nitrogen 7 mg/dL (6-20); Carbon Dioxide 21 mmol/L (22-29); Chloride 101 mmol/L (98-107); Globulin 3.5 g/dL (1.3-4.6); Glomerular Filtration Rate 88.9 mL/min (90-130); Glucose 94 mg/dL (65-115); Lipase 17 U/L (13-60); Osmolality Calculated 282 mOsm/kg (285-295); Potassium 3.6 mmol/L (3.5-5.1); Sodium 137 mmol/L (136-145); Total Bilirubin 0.3 mg/dL (0.15-1.2); Total Protein 8.1 g/dL (6.6-8.7)
[2022-09-11 08:46] VITALS: BP 131/69; PULSE 102; RESP 16; O2SAT 96
[2022-09-11 09:25] VITALS: BP 131/69; PULSE 102; RESP 16; O2SAT 96
== END 2022-09-11 09:27 | disposition home or self-care (01) ==
PROVIDERS: Emergency Provider Physician Assistant; PCP Family Medicine
DX: R11.2 Nausea with vomiting, unspecified (principal); F12.90 Cannabis use, unspecified, uncomplicated
CPT/HCPCS: 80053; 83690; 84703; 85025; 96361; 96374; 96375; 99284; J2060; J2765; J7030

== ENCOUNTER 2022-09-29 09:27 | Emergency (ER) | payer MEDICAID, SELFPAY ==
[2022-09-29 09:39] VITALS: BMI 18.1
[2022-09-29 09:41] VITALS: BP 122/75; PULSE 72; RESP 22; TEMP 36.4; O2SAT 100
--- NOTE | 2022-09-29 09:41 | ED_ITS ---
HPI - Nausea/Vomiting/Diarrhea General: Chief complaint: Anxiety Stated complaint: possible panic attack Time Seen by Provider: 09/29/22 09:29 Source: patient Mode of arrival: ambulatory Limitations: no limitations History of Present Illness: Patient is a 22-year-old female presents to ED today with a complaint of nausea, vomiting, anxiety. Patient states she was drinking alcohol yesterday evening w ith her brother and thinks that is why she woke up feeling ill. She states she began having nausea and dry heaving which then led to her feeling very anxious and hyperventilating. Patient does have a history of chronic marijuana use as well as hyperemesis cannabinoid syndrome. She feels like her nausea and vomiting today is different than those previous episodes. She states she does have a history of anxiety. Patient has not had any diarrhea or changes to her bowel movements. She does complain of some mild abdominal cramping but states her main complaint is her nausea and anxiety. No sick contacts. No fevers. MD elicited complaint: nausea, vomiting, abdominal pain and other (anxiety) Pertinent past history: cyclical vomiting Onset (ago): hour(s) Description of vomiting: other (dry heaving) Associated nausea: Yes Associated abdominal pain: Yes Location of pain: Diffuse Severity: moderate Exacerbating factors: none Relieving factors: none Context: marijuana use Associated symtoms: Reports anxiety and nausea; Denies change in vision, chest pain, dizziness, dysuria, fatigue, headache(s), malaise, palpitations or syncope Treatment prior to arrival: other (RX Reglan) Review of Systems Const: Denies: fever(s), chills, body aches, fatigue or malaise Eyes: Denies: change in vision or blurry vision Card: Denies: chest pain, palpitations, irregular heart rhythm, edema, swelling of feet/ankles, lightheadedness, syncope, pre-syncope or dyspnea on exertion Resp: Denies: dyspnea, productive cough or pain on inspiration GI: Reports: abdominal pain, nausea and vomiting; Denies: hematemesis, heartburn or diarrhea : Denies: flank pain or dysuria Musc: Reports: other (feeling like her hands are cramping); Denies: neck pain, back pain, extremity pain, extremity swelling or joint pain Skin/Breast: Denies: rash Neuro: Denies: headache(s), numbness in extremities, weakness in extremities, sensory changes or dizziness Psych: Reports: anxiety; Denies: depression, suicidal ideation or homicidal ideation PFSH ED PFSH: Medical History Anxiety Cannabis abuse The following information retrieved/edited from Behavior Assessment Report completed on 02/18/22: Donna meets the diagnostic criteria for F12.10 Cannabis Use Disorder, mild in that she reports: not managing to do what you should at work, home, or school because of substance use; continuing to use, even when it causes problems in relationships; continuing to use, even when you know you have a physical or psychological problem that could have been caused or made worse by the substance; and needing more of the substance to get the effect you want (tolerance). No pertinent family history Panic attack Psychiatric care Social History Smoking and tobacco status: never smoked Alcohol intake: former Former alcohol use details: The patient enjoys drinking at home. No drinking since admission. Substance/Drug Use: current Other substance/drug use details: daily use since the age of 16 Physical Exam Const: COMMON NORMALS: patient oriented x3, no limitations, healthy appearing, alert and well nourished GENERAL APPEARANCE: cooperative and anxious (tearful, hyperventilating ) ORIENTATION/CONSCIOUSNESS: Yes awake, Yes oriented to person, Yes oriented to place and Yes oriented to time HENMT: COMMON NORMALS: normocephalic and atraumatic HEAD & SCALP: normal to inspection, normocephalic and atraumatic Neck/C-Spine: COMMON NORMALS: full ROM, no lymphadenopathy, supple and no meningeal signs Chest: COMMONS NORMALS: normal inspection of the chest and normal palpation of the breasts BREAST/AXILLA PALPATION: Yes normal palpation of the breasts Resp: COMMON NORMALS: normal respiratory effort, No retractions, No use of accessory muscles and clear to auscultation bilaterally EFFORT & INSPECTION: Yes able to speak in complete sentences and Yes tachypneic AUSCULTATION: clear to auscultation bilaterally Cardio: COMMON NORMALS: regular rate and regular rhythm RATE: regular rate RHYTHM: regular rhythm GI: COMMON NORMALS: Normal to inspection, nondistended, normoactive bowel sounds present, Soft to palpation, No hepatosplenomegaly present and no masses AUSCULTATION: Yes normoactive bowel sounds PALPATION: Yes Soft to palpation, Yes Tenderness to palpation present (GI), No Guarding due to palpation present (GI), No Rigid due to palpation and Yes No hepatosplenomegaly present : COMMON NORMALS: Yes no CVA tenderness BLADDER/KIDNEY EXAM: Yes no CVA tenderness Back/Pelvis: COMMON NORMALS: no CVA tenderness and thoracic and lumbar spine normal to inspection Extremity: COMMON NORMALS: normal to inspection GENERAL: Yes normal exam except as noted Neuro: ROVERTO COMA SCALE: document GCS findings Roverto coma scale eye opening: Spontaneous Roverto coma scale verbal response: Orientated Roverto coma scale motor response: Obey commands Roverto coma scale total score: 15 COMMON NORMALS: patient oriented x3, moves all extremities, no focal motor deficits, no sensory deficits noted and gait normal SENSORIUM/ORIENTATION: Yes alert, Yes oriented to person, Yes oriented to place and Yes oriented to time MENINGEAL SIGNS: Yes no meningeal signs Skin: COMMON NORMALS: no rashes or lesions noted GENERAL SKIN EXAM: no rashes or lesions noted Course Vital Signs: Vital signs: Vital Signs Temperature 97.6 F 09/29/22 09:41 Pulse Rate 72 09/29/22 09:41 Respiratory Rate 22 H 09/29/22 09:41 Blood Pressure 122/75 09/29/22 09:41 Pulse Oximetry 100 09/29/22 09:41 Oxygen Delivery Me thod Room Air 09/29/22 09:41 MDM - Nausea/Vomiting/Diarrhea Medical Decision Making Reexamination after IV Haldol and Ativan reveals patient resting comfortably in no acute distress. She states her nausea and anxiety has subsided. She states she feels comfortable going home at this time. DDx includes hyperemesis cannabinoid syndrome, panic attack/anxiety, after day effects of alcohol use, gastroenteritis. Recommend following up with her primary care provider if symptoms persist. Return to ED precautions given. Differential Diagnosis Likely food poisoning, gastroenteritis and drug-induced nausea and vomiting Lab Data 09/29/22 09:55 09/29/22 09:55 Laboratory Results WBC 11.9 10^3/uL (4.0-10.0) H 09/29/22 09:55 RBC 4.94 10^6/uL (4.1-5.3) 09/29/22 09:55 Hgb 12.6 g/dL (11.5-15.3) 09/29/22 09:55 Hct 39.8 % (37.0-47.0) 09/29/22 09:55 MCV 80.6 fl (81-99) L 09/29/22 09:55 MCH 25.5 pg (28.0-34.0) L 09/29/22 09:55 MCHC 31.7 g/dL (30.0-36.0) 09/29/22 09:55 RDW 16.4 % (12.1-15.1) H 09/29/22 09:55 Plt Count 377 10^3/cmm (130-400) 09/29/22 09:55 MPV 10.0 fL (7.4-10.4) 09/29/22 09:55 Neut % (Auto) 72.7 % 09/29/22 09:55 Lymph % (Auto) 18.2 % 09/29/22 09:55 [place] % (Auto) 5.7 % 09/29/22 09:55 Eos % (Auto) 1.8 % 09/29/22 09:55 Baso % (Auto) 1.3 % 09/29/22 09:55 Neut # (Auto) 8.67 10^3/uL (1.8-7.7) H 09/29/22 09:55 Lymph # (Auto) 2.2 10^3/uL (0.8-4.8) 09/29/22 09:55 [place] # (Auto) 0.7 10^3/uL (0.2-0.9) 09/29/22 09:55 Eos # (Auto) 0.2 10^3/uL (0.0-0.8) 09/29/22 09:55 Baso # (Auto) 0.2 10^3/uL (0.0-0.1) H 09/29/22 09:55 Nucleated RBC % (auto) 0 % 09/29/22 09:55 Nucleated RBCs # 0.0 /100WBC 09/29/22 09:55 Sodium 138 mmol/L (136-145) 09/29/22 09:55 Potassium 4.2 mmol/L (3.5-5.1) 09/29/22 09:55 Chloride 102 mmol/L (98-107) 09/29/22 09:55 Carbon Dioxide 23 mmol/L (22-29) 09/29/22 09:55 Anion Gap 17.2 (5-19) 09/29/22 09:55 BUN 6 mg/dL (6-20) 09/29/22 09:55 Creatinine 0.7 mg/dL (0.5-0.9) 09/29/22 09:55 GFR Calculation 103.7 mL/min (90-130) 09/29/22 09:55 Glucose 122 mg/dL (65-115) H 09/29/22 09:55 Calculated Osmolality 285 mOsm/kg (285-295) 09/29/22 09:55 Calcium 9.2 mg/dL (8.5-10.5) 09/29/22 09:55 Total Bilirubin 0.2 mg/dL (0.15-1.2) 09/29/22 09:55 AST 20 U/L (0-32) 09/29/22 09:55 ALT 12 U/L (0-33) 09/29/22 09:55 Alkaline Phosphatase 72 U/L (35-105) 09/29/22 09:55 Total Protein 7.5 g/dL (6.6-8.7) 09/29/22 09:55 Albumin 4.3 g/dL (3.5-5.2) 09/29/22 09:55 Globulin 3.2 g/dL (1.3-4.6) 09/29/22 09:55 Lipase 17 U/L (13-60) 09/29/22 09:55 HCG, Qual Negative (Negative) 09/29/22 09:55 Discharge Plan Discharge Patient Disposition: Home Clinical Impression: Panic attack Nausea and vomiting Qualifiers: Vomiting type: unspecified Qualified Code(s): R11.2 - Nausea with vomiting, unspecified Condition: Stable Prescriptions: No Action escitalopram oxalate 20 mg tablet 20 mg PO DAILY Qty: 30 0RF Xulane 150-35 mcg/24 hr patch weekly 1 patch transdermal Q21D ondansetron 4 mg tablet,disintegrating 4 mg PO Q8H PRN (Reason: nausea and vomiting) Qty: 14 0RF Reglan 10 mg tablet 10 mg PO Q6H PRN (Reason: nausea and vomiting) Qty: 20 0RF Discharge Orders: Discharge ED (Routine); Ordered 09/29/22 Ordered By: Jasmyn Herring Referrals: Sarath Ramos MD [Primary Care Provider] - Activity Restrictions/Additional Instructions: Please follow up with your primary care provider if nausea/vomiting or anxiety persists. You may return to the emergency department for continued nausea and vomiting, severe anxiety, severe abdominal pain, fevers, or any other concerns you may have. I hope you begin to feel better soon. Coding Level of Care Code ED Supervisor Electronics Testing for Rodrigo Palmer
[2022-09-29] MEDS: LORazepam 2 mg/mL INJ 1 mL 1 MG IVP (09:54)
[2022-09-29] MEDS: haloperidol inj 5 mg/mL INJ 1 mL 2.5 MG IVP (09:54)
[2022-09-29] MEDS: sodium chloride 0.9% 1,000 ML 999 ML IV (09:56)
[2022-09-29 10:12] LABS: Basophils # 0.2 10^3/uL (0.0-0.1); Basophils % 1.3 %; Eosinophils # 0.2 10^3/uL (0.0-0.8); Eosinophils % 1.8 %; Hematocrit 39.8 % (37.0-47.0); Hemoglobin 12.6 g/dL (11.5-15.3); Lymphocytes # 2.2 10^3/uL (0.8-4.8); Lymphocytes % 18.2 %; Mean Corpuscular HGB Conc 31.7 g/dL (30.0-36.0); Mean Corpuscular Hemoglobin 25.5 pg (28.0-34.0); Mean Corpuscular Volume 80.6 fl (81-99); Monocytes # 0.7 10^3/uL (0.2-0.9); Monocytes % 5.7 %; Neutrophils # 8.67 10^3/uL (1.8-7.7); Neutrophils % 72.7 %; Nucleated Red Blood Cells % 0 %; Platelet Count 377 10^3/cmm (130-400); Red Blood Count 4.94 10^6/uL (4.1-5.3); Red Cell Distribution Width 16.4 % (12.1-15.1); White Blood Count 11.9 10^3/uL (4.0-10.0)
[2022-09-29 10:24] LABS: HCG, Serum Qual Negative (Negative)
[2022-09-29 10:25] LABS: Alanine Aminotransferase 12 U/L (0-33); Albumin Level 4.3 g/dL (3.5-5.2); Alkaline Phosphatase 72 U/L (35-105); Anion Gap 17.2 (5-19); Aspartate Amino Transferase 20 U/L (0-32); Blood Urea Nitrogen 6 mg/dL (6-20); Calcium 9.2 mg/dL (8.5-10.5); Carbon Dioxide 23 mmol/L (22-29); Chloride 102 mmol/L (98-107); Globulin 3.2 g/dL (1.3-4.6); Glomerular Filtration Rate 103.7 mL/min (90-130); Glucose 122 mg/dL (65-115); Lipase 17 U/L (13-60); Osmolality Calculated 285 mOsm/kg (285-295); Potassium 4.2 mmol/L (3.5-5.1); Sodium 138 mmol/L (136-145); Total Bilirubin 0.2 mg/dL (0.15-1.2); Total Protein 7.5 g/dL (6.6-8.7)
== END 2022-09-29 11:28 | disposition home or self-care (01) ==
PROVIDERS: Emergency Provider Physician Assistant; PCP Family Medicine
DX: F41.0 Panic disorder [episodic paroxysmal anxiety] (principal); R11.2 Nausea with vomiting, unspecified
CPT/HCPCS: 80053; 83690; 84703; 85025; 96374; 96375; 99284; J1630; J2060; J7030

== ENCOUNTER 2022-10-10 18:57 | Emergency (ER) | payer MEDICAID, SELFPAY ==
[2022-10-10 19:05] VITALS: BP 134/84; PULSE 66; RESP 16; TEMP 36.7; O2SAT 98; BMI 18.1
--- NOTE | 2022-10-10 19:11 | XRR_ITS ---
PROCEDURE INFORMATION: Exam: XR Chest Exam date and time: 10/10/2022 7:47 PM Age: 22 years old Clinical indication: Pain; Chest pressure; Additional info: Cp TECHNIQUE: Imaging protocol: Radiologic exam of the chest. Views: 1 view. COMPARISON: CR XR chest 1V portable [id number] 02/11/2022 10:23 AM FINDINGS: Lungs: Unremarkable. No consolidation. Pleural spaces: Unremarkable. No pleural effusion. No pneumothorax. Heart/Mediastinum: Unremarkable. No cardiomegaly. Bones/joints: Minimal thoracic scoliotic curvatures. XR/XR chest 1V portable [id number] IMPRESSION: No evidence for acute cardiopulmonary disease.
--- NOTE | 2022-10-10 19:23 | ED_ITS ---
HPI - General Adult General: Chief complaint: Vaginal Bleeding Stated complaint: vaginal bleeding Time Seen by Provider: 10/10/22 19:00 Source: patient Mode of arrival: ambulatory Limitations: no limitations History of Present Illness: 22-year-old female states that today she states that she typically does not have regular periods and had 1 2 weeks ago she states this was about a little heavier in nature she did have ultrasound abdominal cramping along with some chest pain she is resting comfortably currently denies any vaginal discharge denies any fevers states its improved with a hot bath. Associated symptoms: Deny chest pain, dyspnea, headache(s), nausea, rash or vomiting Review of Systems Const: Denies: fever(s), chills, body aches or change in appetite ENMT: Denies: throat pain or dental pain Card: Denies: chest pain Resp: Denies: dyspnea GI: Denies: abdominal pain, nausea or vomiting : Reports: vaginal bleeding Musc: Denies: neck pain or back pain Skin/Breast: Denies: rash Neuro: Denies: headache(s) PFSH ED PFSH: Medical History Anxiety Cannabis abuse The following information retrieved/edited from Behavior Assessment Report completed on 02/18/22: Donna meets the diagnostic criteria for F12.10 Cannabis Use Disorder, mild in that she reports: not managing to do what you should at work, home, or school because of substance use; continuing to use, even when it causes problems in relationships; continuing to use, even when you know you have a physical or psychological problem that could have been caused or made worse by the substance; and needing more of the substance to get the effect you want (tolerance). No pertinent family history Panic attack Psychiatric care Social History Smoking and tobacco status: never smoked Alcohol intake: former Former alcohol use details: The patient enjoys drinking at home. No drinking since admission. Substance/Drug Use: current Other substance/drug use details: daily use since the age of 16 Physical Exam Const: COMMON NORMALS: no acute distress, patient oriented x3 and healthy appearing HENMT: COMMON NORMALS: normocephalic and atraumatic HEAD & SCALP: normocephalic and atraumatic Eye: COMMON NORMALS: conjunctivae normal CONJUNCTIVA: Yes conjunctivae normal Neck/C-Spine: COMMON NORMALS: full ROM and supple Chest: COMMONS NORMALS: normal inspection of the chest Resp: COMMON NORMALS: normal respiratory effort Cardio: COMMON NORMALS: regular rate, regular rhythm and No murmurs present (Cardio) RATE: regular rate RHYTHM: regular rhythm GI: COMMON NORMALS: Normal to inspection, nondistended, normoactive bowel sounds present, Soft to palpation, non-tender and no masses PALPATION: Yes Soft to palpation Extremity: COMMON NORMALS: normal to inspection and full ROM Neuro: COMMON NORMALS: patient oriented x3, moves all extremities and no focal motor deficits Psych: COMMON NORMALS: mental status grossly normal, Normal thought process present and cooperative THOUGHT PROCESS: Normal thought process present Skin: COMMON NORMALS: no rashes or lesions noted and no wounds GENERAL SKIN EXAM: no rashes or lesions noted Course Vital Signs: Vital signs: Vital Signs Temperature 98.0 F 10/10/22 19:05 Pulse Rate 66 10/10/22 19:05 Respiratory Rate 16 10/10/22 19:05 Blood Pressure 134/84 10/10/22 19:05 Pulse Oximetry 98 10/10/22 19:05 Oxygen Delivery Me thod Room Air 10/10/22 19:05 [facility] - General Adult Medical Decision Making Patient presents here with dysfunctional uterine bleeding she been well- appearing her blood work is normal she does have some ketones in her urine with a little dehydration she feels much improved here after IV fluids and pain meds. Her abdominal exam is benign she had some chest pain to EKG x-ray is normal she has no signs of a pulmonary embolism she is stable for discharge she is to follow-up with PCP and return if worsening. Medical Records I reviewed the patient's medical records. Lab Data I reviewed the patient's lab results. 10/10/22 19:15 10/10/22 19:15 Radiology Impressions Chest X-Ray 10/10/22 19:11 IMPRESSION: No evidence for acute cardiopulmonary disease. Laboratory Results WBC 12.3 10^3/uL (4.0-10.0) H 10/10/22 19:15 RBC 4.66 10^6/uL (4.1-5.3) 10/10/22 19:15 Hgb 12.0 g/dL (11.5-15.3) 10/10/22 19:15 Hct 38.1 % (37.0-47.0) 10/10/22 19:15 MCV 81.8 fl (81-99) 10/10/22 19:15 MCH 25.8 pg (28.0-34.0) L 10/10/22 19:15 MCHC 31.5 g/dL (30.0-36.0) 10/10/22 19:15 RDW 16.3 % (12.1-15.1) H 10/10/22 19:15 Plt Count 374 10^3/cmm (130-400) 10/10/22 19:15 MPV 10.2 fL (7.4-10.4) 10/10/22 19:15 Neut % (Auto) 76.8 % 10/10/22 19:15 Lymph % (Auto) 16.5 % 10/10/22 19:15 [place] % (Auto) 5.0 % 10/10/22 19:15 Eos % (Auto) 0.6 % 10/10/22 19:15 Baso % (Auto) 0.7 % 10/10/22 19:15 Neut # (Auto) 9.46 10^3/uL (1.8-7.7) H 10/10/22 19:15 Lymph # (Auto) 2.0 10^3/uL (0.8-4.8) 10/10/22 19:15 [place] # (Auto) 0.6 10^3/uL (0.2-0.9) 10/10/22 19:15 Eos # (Auto) 0.1 10^3/uL (0.0-0.8) 10/10/22 19:15 Baso # (Auto) 0.1 10^3/uL (0.0-0.1) 10/10/22 19:15 Nucleated RBC % (auto) 0 % 10/10/22 19:15 Nucleated RBCs # 0.0 /100WBC 10/10/22 19:15 Sodium 136 mmol/L (136-145) 10/10/22 19:15 Potassium 3.6 mmol/L (3.5-5.1) 10/10/22 19:15 Chloride 103 mmol/L (98-107) 10/10/22 19:15 Carbon Dioxide 19 mmol/L (22-29) L 10/10/22 19:15 Anion Gap 17.6 (5-19) 10/10/22 19:15 BUN 6 mg/dL (6-20) 10/10/22 19:15 Creatinine 0.7 mg/dL (0.5-0.9) 10/10/22 19:15 GFR Calculation 103.7 mL/min (90-130) 10/10/22 19:15 Glucose 93 mg/dL (65-115) 10/10/22 19:15 Calculated Osmolality 279 mOsm/kg (285-295) L 10/10/22 19:15 Calcium 8.8 mg/dL (8.5-10.5) 10/10/22 19:15 Total Bilirubin 0.4 mg/dL (0.15-1.2) 10/10/22 19:15 AST 12 U/L (0-32) 10/10/22 19:15 ALT 10 U/L (0-33) 10/10/22 19:15 Alkaline Phosphatase 67 U/L (35-105) 10/10/22 19:15 Total Protein 7.5 g/dL (6.6-8.7) 10/10/22 19:15 Albumin 4.2 g/dL (3.5-5.2) 10/10/22 19:15 Globulin 3.3 g/dL (1.3-4.6) 10/10/22 19:15 Lipase 14 U/L (13-60) 10/10/22 19:15 Ser , Semi-Qnt 1.00 mIU/mL 10/10/22 19:15 Urine Color Yellow (Yellow) 10/10/22 20:50 Urine Appearance Clear (CLEAR) 10/10/22 20:50 Urine pH 6 (5-7) 10/10/22 20:50 Ur Specific [place] 1.015 (1.005-1.030) 10/10/22 20:50 Urine Protein Neg (Negative) 10/10/22 20:50 Urine Glucose (UA) Norm (Normal) 10/10/22 20:50 Urine Ketones 2+ (Negative) H 10/10/22 20:50 Urine Blood 2+ (Negative) H 10/10/22 20:50 Urine Nitrate Negative (Negative) 10/10/22 20:50 Urine Bilirubin Neg (Negative) 10/10/22 20:50 Urine Urobilinogen Norm mg/dL (Negative) 10/10/22 20:50 Ur Leukocyte Esterase Negative (Negative) 10/10/22 20:50 Urine RBC 25-40 /hpf (0-2) H 10/10/22 20:50 Urine WBC 0-4 /hpf (0-5) H 10/10/22 20:50 Ur Squamous Epith Cells 0-4 /hpf (0-5) H 10/10/22 20:50 Amorphous Sediment Not Reportable 10/10/22 20:50 Urine Bacteria Trace /hpf (NONE) 10/10/22 20:50 Urine Mucus 2+ /hpf 10/10/22 20:50 Discharge Plan Discharge Patient Disposition: Home Clinical Impression: Vaginal bleeding, Abdominal pain Condition: Stable Prescriptions: New Naprosyn 500 mg tablet 500 mg PO BID PRN (Reason: pain) Qty: 20 0RF No Action escitalopram oxalate 20 mg tablet 20 mg PO DAILY Qty: 30 0RF Xulane 150-35 mcg/24 hr patch weekly 1 patch transdermal Q21D ondansetron 4 mg tablet,disintegrating 4 mg PO Q8H PRN (Reason: nausea and vomiting) Qty: 14 0RF Reglan 10 mg tablet 10 mg PO Q6H PRN (Reason: nausea and vomiting) Qty: 20 0RF Discharge Orders: Discharge ED (Routine); Ordered 10/10/22 Ordered By: Gary Avila Referrals: Sarath Ramos MD [Primary Care Provider] - 1-3 days Discharge Diet: Advance as tolerated Discharge Activity: Resume usual activity Patient Instructions: Abnormal (Dysfunctional) Uterine Bleeding (ED), Abdominal Pain (ED) Coding Level of Care Code ED Slotter Operator Helper for Chg Estela
[2022-10-10 19:45] LABS: Basophils # 0.1 10^3/uL (0.0-0.1); Basophils % 0.7 %; Eosinophils # 0.1 10^3/uL (0.0-0.8); Eosinophils % 0.6 %; Hematocrit 38.1 % (37.0-47.0); Lymphocytes % 16.5 %; Mean Corpuscular HGB Conc 31.5 g/dL (30.0-36.0); Mean Corpuscular Hemoglobin 25.8 pg (28.0-34.0); Mean Corpuscular Volume 81.8 fl (81-99); Mean Platelet Volume 10.2 fL (7.4-10.4); Monocytes # 0.6 10^3/uL (0.2-0.9); Neutrophils # 9.46 10^3/uL (1.8-7.7); Neutrophils % 76.8 %; Nucleated Red Blood Cells % 0 %; Platelet Count 374 10^3/cmm (130-400); Red Blood Count 4.66 10^6/uL (4.1-5.3); Red Cell Distribution Width 16.3 % (12.1-15.1); White Blood Count 12.3 10^3/uL (4.0-10.0)
[2022-10-10] MEDS: ondansetron 2 mg/ML SDV 2 mL 4 MG IVP (19:47)
[2022-10-10] MEDS: morphine 4 mg/mL SDV 1 mL IVP (19:47)
--- NOTE | 2022-10-10 20:04 | ECG_ITS ---
[facility] Test Date: 2022-10-10 Pat Name: Donna Mullins Department: Room: Gender: Female Trigonometry Teacher: : 2000 Requested By: Gary Avila Order Number: [id number] Yuriy MD: Eddie Christina M.D. Measurements Intervals [place] Rate: 49 P: 73 CO: 109 QRS: 88 QRSD: 103 T: 78 QT: 447 QTc: 407 Interpretive Statements SINUS BRADYCARDIA WITH SHORT CO INTERVAL INCOMPLETE RIGHT BUNDLE BRANCH BLOCK [90+ ms QRS DURATION, TERMINAL R IN V1/V2, 40+ ms S IN I/aVL/V4/V5/V6] Compared to ECG 02/11/2022 17:16:51 Short CO interval now present Incomplete right bundle-branch block now present Ectopic atrial rhythm no longer present Electronically Signed On 10-11-2022 8:01:29 CDT by Eddie Christina M.D. [email or web address]
[2022-10-10 20:15] LABS: Alanine Aminotransferase 10 U/L (0-33); Albumin Level 4.2 g/dL (3.5-5.2); Alkaline Phosphatase 67 U/L (35-105); Anion Gap 17.6 (5-19); Aspartate Amino Transferase 12 U/L (0-32); Blood Urea Nitrogen 6 mg/dL (6-20); Calcium 8.8 mg/dL (8.5-10.5); Carbon Dioxide 19 mmol/L (22-29); Chloride 103 mmol/L (98-107); Globulin 3.3 g/dL (1.3-4.6); Glomerular Filtration Rate 103.7 mL/min (90-130); Glucose 93 mg/dL (65-115); Osmolality Calculated 279 mOsm/kg (285-295); Potassium 3.6 mmol/L (3.5-5.1); Sodium 136 mmol/L (136-145); Total Bilirubin 0.4 mg/dL (0.15-1.2); Total Protein 7.5 g/dL (6.6-8.7)
[2022-10-10 20:37] LABS: Lipase 14 U/L (13-60)
[2022-10-10] MEDS: sodium chloride 0.9% 1,000 ML 999 ML IV (20:41)
[2022-10-10] MEDS: ketorolac 30 mg/mL INJ IVP (20:42)
[2022-10-10 21:00] VITALS: BP 115/71; PULSE 68; RESP 16; O2SAT 100
[2022-10-10 21:16] LABS: Urine Appearance Clear (CLEAR); Urine Color Yellow (Yellow)
[2022-10-10 21:17] LABS: Ketones Urine 2+ (Negative)
[2022-10-10 21:18] LABS: Blood Urine 2+ (Negative); pH Urine 6 (5-7)
[2022-10-10 21:19] LABS: Add Urine Microscopic? YES; Bilirubin Urine Neg (Negative); Glucose Urine UA Norm (Normal); Leukocyte Esterase Urine Negative (Negative); Nitrate Urine Negative (Negative); Protein Urine Neg (Negative); Specific Gravity, Urine 1.015 (1.005-1.030); Urobilinogen Urine Norm (Negative)
[2022-10-10 21:20] LABS: Bacteria Urine TRACE /hpf; Squamous Epithelial Cell Urine 0-4 /hpf (0-5); WBC Urine 0-4 /hpf (0-5)
[2022-10-10 21:21] LABS: Add Urine Culture? Yes; Mucus Urine 2+ /hpf; RBC Urine 25-40 /hpf (0-2)
[2022-10-10 22:02] VITALS: BP 129/84; PULSE 69; RESP 16; O2SAT 98
== END 2022-10-10 21:51 | disposition home or self-care (01) ==
PROVIDERS: Emergency Provider Emergency Medicine; PCP Family Medicine
DX: N93.9 Abnormal uterine and vaginal bleeding, unspecified (principal); R10.9 Unspecified abdominal pain
CPT/HCPCS: 36415; 71045; 80053; 81001; 83690; 84702; 85025; 87086; 93005; 96361; 96374; 96375; 99285; J1885; J2270; J2405; J7030

== ENCOUNTER 2022-10-11 13:17 | Emergency (ER) | payer MEDICAID, SELFPAY ==
--- NOTE | 2022-10-11 13:31 | USR_ITS ---
PROCEDURE INFORMATION: Exam: US Nonobstetric Pelvis; Complete Exam date and time: 10/11/2022 2:07 PM Age: 22 years old Clinical indication: Pain; Dysmenorrhea; Additional info: Vaginal bleeding TECHNIQUE: Imaging protocol: Transabdominal pelvic nonobstetric ultrasound. Complete exam. Real time ultrasound with image documentation. COMPARISON: CT kidney stone [id number] 10/23/2021 10:26 AM FINDINGS: Uterus: Uterus measures 7.3 x 3.3 x 4 cm and appears unremarkable in echotexture and contour. Endometrium measures 2.6 mm. Cervix: Region of the cervix shows no significant abnormality. Right ovary/adnexa: Right ovary measures 2.8 x 2.1 x 2.3 cm with a volume of 6.8 cc. A few follicles are seen. Right ovarian flow is seen, with a PSV of 9.5 centimeters/second and RI of 0.73. Left ovary/adnexa: Left ovary measures 1.6 x 1.5 cm and demonstrates follicle or small follicular cyst (4.5 mm). Left ovarian flow is seen with a PSV of 11.3 centimeters/second and RI of 0.42. Intraperitoneal space: Mild free fluid in the posterior cul-de-sac Urinary bladder: Not adequately visualized/evaluated. US/US pelv w/transvag [id number] IMPRESSION: 1. Mild free fluid in the posterior cul-de-sac. 2. Exam is otherwise unremarkable.
[2022-10-11 13:50] VITALS: BP 123/81; PULSE 63; RESP 16; TEMP 36.6; O2SAT 98; BMI 18.1
--- NOTE | 2022-10-11 14:38 | W.ED.GENADLT ---
HPI - General Adult General: Chief complaint: Vaginal Bleeding Stated complaint: heavy vaginal bleeding Time Seen by Provider: 10/11/22 13:59 History of Present Illness: Patient is a 22-year-old female that presents to the emergency department for the second time in 24 hours. She presents stating that she has abdominal pain and worsening cramps and bleeding with her routine menstrual cycle. Patient was initially worried about irregularity but it appears that she is chronically irregular. Patient denies any fever chills, nausea vomiting or diarrhea. Patient has had issues with reflux in the last couple days Associated symptoms: Deny chest pain, confusion, dyspnea, headache(s), malaise, nausea, rash, palpitations or vomiting Review of Systems General: Reports: 10 or more systems reviewed and unremarkable except in HPI and below Const: Denies: fever(s), chills, change in appetite, change in weight, fatigue or malaise Eyes: Denies: change in vision, eye discomfort, eye discharge or eye redness ENMT: Denies: throat pain, enlarged tonsils, odynophagia, hoarseness, ear or mastoid pain, ear discharge, change in hearing, tinnitus, nasal discharge, nasal congestion, post nasal drip or sinus pain Card: Denies: chest pain, palpitations, irregular heart rhythm, edema, dyspnea on exertion, orthopnea or leg pain with exertion Resp: Denies: dyspnea, productive cough, non-productive cough, wheezing, stridor or chest congestion GI: Denies: abdominal pain, nausea, vomiting, dysphagia, diarrhea, constipation, bloating, GI cramping or hematochezia : Denies: flank pain, difficulty voiding, dysuria, urinary frequency, urinary urgency, urinary hesitancy, oliguria or hematuria Musc: Denies: neck pain, back pain, extremity pain, joint pain, joint swelling, joint redness, joint warmth or muscle weakness Skin/Breast: Denies: rash, pruritus, erythema, photosensitivity or new lesions Neuro: Denies: headache(s), numbness in extremities, weakness in extremities, sensory changes, lack of coordination, difficulty walking, frequent falls, dizziness, confusion, Slurred speech present, difficulty communicating thoughts, seizure-like activity or involuntary movements Endo: Denies: polyuria, polydipsia or tired all the time Prasad/Lymph: Denies: easy bruising or easy bleeding PFSH ED PFS: Medical History Anxiety Cannabis abuse The following information retrieved/edited from Behavior Assessment Report completed on 02/18/22: Donna meets the diagnostic criteria for F12.10 Cannabis Use Disorder, mild in that she reports: not managing to do what you should at work, home, or school because of substance use; continuing to use, even when it causes problems in relationships; continuing to use, even when you know you have a physical or psychological problem that could have been caused or made worse by the substance; and needing more of the substance to get the effect you want (tolerance). No pertinent family history Panic attack Psychiatric care Social History Smoking and tobacco status: never smoked Alcohol intake: former Former alcohol use details: The patient enjoys drinking at home. No drinking since admission. Substance/Drug Use: current Other substance/drug use details: daily use since the age of 16 Physical Exam Const: COMMON NORMALS: no acute distress, patient oriented x3 and alert GENERAL APPEARANCE: cooperative ORIENTATION/CONSCIOUSNESS: Yes awake, Yes oriented to person, Yes oriented to place and Yes oriented to time HENMT: COMMON NORMALS: normocephalic and atraumatic HEAD & SCALP: normocephalic and atraumatic FACE & SINUS: normal facial exam MOUTH: Normal oral and palatal mucosa present THROAT: posterior oropharynx normal Eye: COMMON NORMALS: Equal, round and reactive pupils present, EOMs intact bilaterally, conjunctivae normal and no scleral icterus GENERAL EYE: appearance normal, both eyes and all related structures ALIGNMENT: Yes alignment normal PERIORBITAL: periorbital findings normal CONJUNCTIVA: Yes conjunctivae normal PUPIL: Yes Equal, round and reactive pupils present Neck/C-Spine: COMMON NORMALS: full ROM GENERAL: Yes normal visual inspection Lymph: LYMPHATIC: no lymphadenopathy noted Chest: COMMONS NORMALS: normal inspection of the chest Breast/axilla inspection: Yes no chest deformity, asymmetry, normal contours, no nodules, masses, tenderness Resp: COMMON NORMALS: normal respiratory effort, No retractions, No use of accessory muscles and clear to auscultation bilaterally EFFORT & INSPECTION: Yes able to speak in complete sentences and Yes symmetric chest movement AUSCULTATION: clear to auscultation bilaterally Cardio: COMMON NORMALS: regular rate, regular rhythm and Peripheral pulses 2+ throughout RATE: regular rate RHYTHM: regular rhythm PERIPHERAL PULSES: Peripheral pulses 2+ throughout GI: COMMON NORMALS: Normal to inspection, nondistended, normoactive bowel sounds present, Soft to palpation, non-tender and No hepatosplenomegaly present INSPECTION: Yes normal to inspection AUSCULTATION: Yes normoactive bowel sounds PALPATION: Yes Soft to palpation and Yes No hepatosplenomegaly present RECTAL EXAM: deferred Extremity: COMMON NORMALS: normal to inspection GENERAL: Yes normal exam except as noted Neuro: COMMON NORMALS: patient oriented x3 SENSORIUM/ORIENTATION: Yes alert, Yes oriented to person, Yes oriented to place and Yes oriented to time CRANIAL NERVES: Yes CN normal except as noted Psych: COMMON NORMALS: mental status grossly normal, Normal thought process present, cooperative, activity/motor behavior normal, denies homicidal ideation and denies suicidal ideation THOUGHT PROCESS: Normal thought process present Skin: COMMON NORMALS: no rashes or lesions noted, no wounds and turgor normal GENERAL SKIN EXAM: no rashes or lesions noted and turgor normal Course Vital Signs: Vital signs: Vital Signs Temperature 97.8 F 10/11/22 13:50 Pulse Rate 63 10/11/22 13:50 Respiratory Rate 18 10/11/22 15:38 Blood Pressure 119/79 10/11/22 15:38 Pulse Oximetry 98 10/11/22 15:38 Oxygen Delivery Me thod Room Air 10/11/22 15:38 [facility] - General Adult Medical Decision Making Differential diagnoses include , extrauterine , UTI, pyelonephritis, constipation. Patient was evaluated here in the emergency department with multiple complaints including abdominal pain, cramping and distention, irregular menstrual cycles, dyspepsia. Initially we believe this was menstrual cycle in nature. She had changed her control in the last 6 months and it had irregular menses after that time but recently has been more consistent. She had a menstrual cycle approximately 2 weeks ago and it has reoccurred. Underwent pelvic ultrasound which was unremarkable except for some small amount of free fluid in the pelvis. This is likely from a ruptured adnexal cyst. I did a CBC, CMP which revealed a leukocytosis of 16,000. Remainder of her laboratory evaluation was unremarkable. No evidence of UTI Did a CT abdomen pelvis with contrast which revealed wall thickening of the stomach and small intestine. It is likely that she has gastroenteritis. I have advised her of this and advised her to use an acid reducing medication to help with her symptoms. I have advised her that she will likely develop some diarrhea in the next couple days. Patient's pain was treated with Toradol here in the emergency department and she is very comfortable at this time. She has a prescription of naproxen that she will take when she gets home. Patient is agreeable with plan and all questions were answered Lab Data 10/11/22 14:38 10/11/22 14:38 Radiology Impressions Pelvic/Transvag US 10/11/22 13:31 IMPRESSION: 1. Mild free fluid in the posterior cul-de-sac. 2. Exam is otherwise unremarkable. Abdomen/Pelvis CT 10/11/22 15:46 IMPRESSION: 1. Suggestion of mild wall thickening of the stomach and small bowel and consider inflammation with a history of leukocytosis. 2. Mild nonspecific free fluid in the cul-de-sac and no acute findings, otherwise. Laboratory Results WBC 16.6 10^3/uL (4.0-10.0) H 10/11/22 14:38 RBC 4.32 10^6/uL (4.1-5.3) 10/11/22 14:38 Hgb 11.3 g/dL (11.5-15.3) L 10/11/22 14:38 Hct 35.9 % (37.0-47.0) L 10/11/22 14:38 MCV 83.1 fl (81-99) 10/11/22 14:38 MCH 26.2 pg (28.0-34.0) L 10/11/22 14:38 MCHC 31.5 g/dL (30.0-36.0) 10/11/22 14:38 RDW 16.2 % (12.1-15.1) H 10/11/22 14:38 Plt Count 343 10^3/cmm (130-400) 10/11/22 14:38 MPV 9.7 fL (7.4-10.4) 10/11/22 14:38 Neut % (Auto) 78.5 % 10/11/22 14:38 Lymph % (Auto) 13.4 % 10/11/22 14:38 [place] % (Auto) 5.8 % 10/11/22 14:38 Eos % (Auto) 1.1 % 10/11/22 14:38 Baso % (Auto) 0.6 % 10/11/22 14:38 Neut # (Auto) 13.02 10^3/uL (1.8-7.7) H 10/11/22 14:38 Lymph # (Auto) 2.2 10^3/uL (0.8-4.8) 10/11/22 14:38 [place] # (Auto) 1.0 10^3/uL (0.2-0.9) H 10/11/22 14:38 Eos # (Auto) 0.2 10^3/uL (0.0-0.8) 10/11/22 14:38 Baso # (Auto) 0.1 10^3/uL (0.0-0.1) 10/11/22 14:38 Nucleated RBC % (auto) 0 % 10/11/22 14:38 Nucleated RBCs # 0.0 /100WBC 10/11/22 14:38 PT 13.60 SECONDS (12.1-14.9) 10/11/22 14:38 INR 1.01 (0.8-1.2) 10/11/22 14:38 Sodium 138 mmol/L (136-145) 10/11/22 14:38 Potassium 3.8 mmol/L (3.5-5.1) 10/11/22 14:38 Chloride 106 mmol/L (98-107) 10/11/22 14:38 Carbon Dioxide 22 mmol/L (22-29) 10/11/22 14:38 Anion Gap 13.8 (5-19) 10/11/22 14:38 BUN 6 mg/dL (6-20) 10/11/22 14:38 Creatinine 0.8 mg/dL (0.5-0.9) 10/11/22 14:38 GFR Calculation 88.9 mL/min (90-130) L 10/11/22 14:38 Glucose 99 mg/dL (65-115) 10/11/22 14:38 Calculated Osmolality 284 mOsm/kg (285-295) L 10/11/22 14:38 Calcium 9.0 mg/dL (8.5-10.5) 10/11/22 14:38 Total Bilirubin 0.3 mg/dL (0.15-1.2) 10/11/22 14:38 AST 13 U/L (0-32) 10/11/22 14:38 ALT 11 U/L (0-33) 10/11/22 14:38 Alkaline Phosphatase 65 U/L (35-105) 10/11/22 14:38 Total Protein 7.1 g/dL (6.6-8.7) 10/11/22 14:38 Albumin 4.0 g/dL (3.5-5.2) 10/11/22 14:38 Globulin 3.1 g/dL (1.3-4.6) 10/11/22 14:38 Discharge Plan Discharge Patient Disposition: Home Clinical Impression: Menometrorrhagia, Gastroenteritis Condition: Stable Prescriptions: No Action escitalopram oxalate 20 mg tablet 20 mg PO DAILY Qty: 30 0RF Naprosyn 500 mg tablet 500 mg PO BID PRN (Reason: pain) Qty: 20 0RF Xulane 150-35 mcg/24 hr patch weekly 1 patch transdermal Q21D ondansetron 4 mg tablet,disintegrating 4 mg PO Q8H PRN (Reason: nausea and vomiting) Qty: 14 0RF Reglan 10 mg tablet 10 mg PO Q6H PRN (Reason: nausea and vomiting) Qty: 20 0RF Discharge Orders: Discharge ED (Routine); Ordered 10/11/22 Ordered By: Lincoln Guardado Referrals: Sarath Ramos MD [Primary Care Provider] - Discharge Diet: Advance as tolerated Discharge Activity: Resume usual activity Patient Instructions: Gastroenteritis (ED), Pain Management Activity Restrictions/Additional Instructions: Please follow-up with your MAJOR DONOR COORDINATOR regarding vaginal bleeding and irregular menses. Please drink plenty of fluid and take good nutrition and over the next couple days Also use something like famotidine or Nexium to help with some of your acid reflux. Return to the emergency department for new concerning or worsening symptoms Coding Level of Care Code ED Device Processing Engineer for Rodrigo Palmer
[2022-10-11] MEDS: ketorolac 60 mg/2 mL INJ IM (14:41)
[2022-10-11 14:53] LABS: Basophils # 0.1 10^3/uL (0.0-0.1); Basophils % 0.6 %; Eosinophils # 0.2 10^3/uL (0.0-0.8); Eosinophils % 1.1 %; Hematocrit 35.9 % (37.0-47.0); Hemoglobin 11.3 g/dL (11.5-15.3); Lymphocytes # 2.2 10^3/uL (0.8-4.8); Lymphocytes % 13.4 %; Mean Corpuscular HGB Conc 31.5 g/dL (30.0-36.0); Mean Corpuscular Hemoglobin 26.2 pg (28.0-34.0); Mean Corpuscular Volume 83.1 fl (81-99); Mean Platelet Volume 9.7 fL (7.4-10.4); Monocytes % 5.8 %; Neutrophils # 13.02 10^3/uL (1.8-7.7); Neutrophils % 78.5 %; Nucleated Red Blood Cells % 0 %; Platelet Count 343 10^3/cmm (130-400); Red Blood Count 4.32 10^6/uL (4.1-5.3); Red Cell Distribution Width 16.2 % (12.1-15.1); White Blood Count 16.6 10^3/uL (4.0-10.0)
[2022-10-11 15:03] LABS: INR 1.01 (0.8-1.2)
[2022-10-11 15:10] LABS: Alanine Aminotransferase 11 U/L (0-33); Alkaline Phosphatase 65 U/L (35-105); Anion Gap 13.8 (5-19); Aspartate Amino Transferase 13 U/L (0-32); Blood Urea Nitrogen 6 mg/dL (6-20); Carbon Dioxide 22 mmol/L (22-29); Chloride 106 mmol/L (98-107); Globulin 3.1 g/dL (1.3-4.6); Glomerular Filtration Rate 88.9 mL/min (90-130); Glucose 99 mg/dL (65-115); Osmolality Calculated 284 mOsm/kg (285-295); Potassium 3.8 mmol/L (3.5-5.1); Sodium 138 mmol/L (136-145); Total Bilirubin 0.3 mg/dL (0.15-1.2); Total Protein 7.1 g/dL (6.6-8.7)
[2022-10-11 15:38] VITALS: BP 119/79; RESP 18; O2SAT 98
--- NOTE | 2022-10-11 15:46 | CTR_ITS ---
PROCEDURE INFORMATION: Exam: CT Abdomen And Pelvis With Contrast Exam date and time: 10/11/2022 4:07 PM Age: 22 years old Clinical indication: Pain; Other: Pelvic; Additional info: Abdominal pain, leukocytosis TECHNIQUE: Imaging protocol: Computed tomography of the abdomen and pelvis with contrast. Radiation optimization: All CT scans at this facility use at least one of these dose optimization techniques: automated exposure control; mA and/or kV adjustment per patient size (includes targeted exams where dose is matched to clinical indication); or iterative reconstruction. Contrast material: OMNI 350; Contrast volume: 95 ml; Contrast route: INTRAVENOUS (IV); REPORTING DATA: Count of CT and Cardiac NM exams in prior 12 months: This patient has received [address] and 0 known cardiac nuclear medicine studies in the 12 months prior to the current study. COMPARISON: CT kidney stone [id number] 10/23/2021 10:26 AM RADIATION DOSE METRICS: Total DLP (mGy-cm): 330.39 FINDINGS: Lungs: No significant infiltrate or effusion is seen within the lung bases. Liver: Hypodensity adjacent to the falciform ligament is unchanged from October 23, 2021 exam, likely focal fatty infiltration. Liver is otherwise unremarkable. Gallbladder and bile ducts: Normal. No calcified stones. No ductal dilation. Pancreas: Normal. No ductal dilation. Spleen: Normal. No splenomegaly. Adrenal glands: Normal. No mass. Kidneys and ureters: Normal. No hydronephrosis. Stomach and bowel: No obstruction. Suggestion of mild wall thickening of the stomach and small bowel. Appendix: No evidence of appendicitis. Intraperitoneal space: Mild nonspecific free fluid in the cul-de-sac. Vasculature: Unremarkable. No abdominal aortic aneurysm. Lymph nodes: Unremarkable. No enlarged lymph nodes. Urinary bladder: Urinary bladder is partially distended and without focal abnormality. Reproductive: Unremarkable as visualized. Bones/joints: No acute findings. Soft tissues: Unremarkable. CT/CT abdomen pelvis w con* [id number] IMPRESSION: 1. Suggestion of mild wall thickening of the stomach and small bowel and consider inflammation with a history of leukocytosis. 2. Mild nonspecific free fluid in the cul-de-sac and no acute findings, otherwise.
[2022-10-11] MEDS: iohexol 350 mg/mL 500 mL Btl (per mL) IV (16:21)
== END 2022-10-11 17:17 | disposition home or self-care (01) ==
PROVIDERS: Emergency Medicine; Emergency Provider Nurse Practitioner; PCP Family Medicine
DX: N92.1 Excessive and frequent menstruation with irregular cycle (principal); K52.9 Noninfective gastroenteritis and colitis, unspecified
CPT/HCPCS: 36415; 74177; 76830; 76856; 80053; 85025; 85610; 96372; 99285; J1885; Q9967

== ENCOUNTER 2022-10-15 19:02 | Emergency (ER) | payer MEDICAID, SELFPAY ==
[2022-10-15 19:23] VITALS: BP 126/65; PULSE 80; RESP 18; O2SAT 100
--- NOTE | 2022-10-15 19:59 | ED_ITS ---
HPI - Abdominal Pain General: Chief Complaint: Abdominal Pain Stated Complaint: uterine bleeding, flu Time Seen by Provider: 10/15/22 19:21 Source: patient Mode of arrival: ambulatory Limitations: no limitations History of Present Illness: Patient is a 22-year-old female presents to ED today with a complaint of abdominal pain, nausea, raving/vomiting. She states symptoms have been present over the past 3 to 4 days. Looking at previous documentation patient has been seen 9 times over the past 6 months for almost identical symptoms. I have personally seen patient for very similar presentation. She has been diagnosed with hyperemesis cannabis syndrome previously. She states her symptoms today feel different . She continues to use marijuana. Patient is having normal bowel movements. Denies fevers. She states she has underwent CT imaging and ultrasound imaging a few days ago for the symptoms. MD elicited complaint: abdominal pain Pertinent past history: other (Hyperemesis cannabis syndrome) Onset (ago): day(s) Pain Consistency: constant Location: Diffuse Severity: severe Quality: cramping and burning Radiation: none Migration to: no migration Exacerbating factors: eating Relieving factors: other (hot shower) Associated Symptoms: Reports nausea and vomiting; Denies change in bowel habits, chills, dysuria, fever(s) and hematemesis Related Data: Date of Last Menstrual Period: 10/01/22 Patient : No Review of Systems Const: Denies: fever(s), chills, body aches, fatigue or malaise Card: Denies: chest pain Resp: Denies: dyspnea GI: Reports: abdominal pain, nausea and vomiting; Denies: hematemesis or change in bowel habits : Denies: flank pain, difficulty voiding, dysuria, urinary frequency, urinary urgency or urinary hesitancy Musc: Denies: neck pain, back pain, extremity pain or joint pain Skin/Breast: Denies: rash Neuro: Denies: headache(s), numbness in extremities, weakness in extremities or sensory changes PFSH ED PFSH: Medical History Anxiety Cannabis abuse The following information retrieved/edited from Behavior Assessment Report completed on 02/18/22: Donna meets the diagnostic criteria for F12.10 Cannabis Use Disorder, mild in that she reports: not managing to do what you should at work, home, or school because of substance use; continuing to use, even when it causes problems in relationships; continuing to use, even when you know you have a physical or psychological problem that could have been caused or made worse by the substance; and needing more of the substance to get the effect you want (tolerance). No pertinent family history Panic attack Psychiatric care Social History Smoking and tobacco status: never smoked Alcohol intake: former Former alcohol use details: The patient enjoys drinking at home. No drinking since admission. Substance/Drug Use: current Other substance/drug use details: daily use since the age of 16 Female Reproductive History: Date of last menstrual period: 10/01/22 Physical Exam Const: COMMON NORMALS: average body habitus, patient oriented x3, no limitations, healthy appearing, alert and well nourished GENERAL APPEARANCE: cooperative, in distress (tearful-in discomfort) and anxious ORIENTATION/CONSCIOUSNESS: Yes awake, Yes oriented to person, Yes oriented to place and Yes oriented to time Resp: COMMON NORMALS: normal respiratory effort and clear to auscultation bilaterally AUSCULTATION: clear to auscultation bilaterally Cardio: COMMON NORMALS: regular rate and regular rhythm RATE: regular rate RHYTHM: regular rhythm GI: COMMON NORMALS: Normal to inspection, nondistended, normoactive bowel sounds present, Soft to palpation, No hepatosplenomegaly present and no masses INSPECTION: Yes normal to inspection AUSCULTATION: Yes normoactive bowel sounds PALPATION: Yes Soft to palpation, Yes Tenderness to palpation present (GI) (diffuse), Yes Guarding due to palpation present (GI), Yes Rigid due to palpation and Yes No hepatosplenomegaly present OTHER: re-examination after medications reveals a soft non-tender abdomen : COMMON NORMALS: Yes no CVA tenderness BLADDER/KIDNEY EXAM: Yes no CVA tenderness Back/Pelvis: COMMON NORMALS: no CVA tenderness, thoracic and lumbar spine normal to inspection, no thoracic nor lumbar tenderness and thoraco-lumbar ROM normal Extremity: COMMON NORMALS: normal to inspection GENERAL: Yes normal exam ex cept as noted Neuro: ROVERTO COMA SCALE: document GCS findings Roverto coma scale eye opening: Spontaneous [place] coma scale verbal response: Orientated [place] coma scale motor response: Obey commands [place] coma scale total score: 15 COMMON NORMALS: patient oriented x3 SENSORIUM/ORIENTATION: Yes alert, Yes oriented to person, Yes oriented to place and Yes oriented to time Skin: COMMON NORMALS: no rashes or lesions noted GENERAL SKIN EXAM: no rashes or lesions noted Course Reevaluation(s): Reevaluation #1: After IV fluids, Ativan, and Haldol patient is resting comfortably in no acute distress. She was able to eat and drink afterwards. Vital Signs: Vital signs: Vital Signs Pulse Rate 76 10/15/22 21:40 Respiratory Rate 16 10/15/22 21:40 Blood Pressure 144/75 10/15/22 21:40 Pulse Oximetry 97 10/15/22 21:40 Oxygen Delivery Me thod Room Air 10/15/22 19:23 MDM - Abdominal Pain Medical Decision Making I highly suspect patient's symptoms are secondary to cannabinoid hyperemesis syndrome as I have seen her previously for identical symptoms and she presents almost identical to other patients with this. She had complete relief of her symptoms after IV fluids, Haldol, Ativan. She tells me that symptoms are improved with a hot shower which is very characteristic of this syndrome. She continues to smoke marijuana habitually. Ultrasound and CT imaging that she had performed a few days ago were reviewed and showing no concerning findings. They did comment on some nonspecific gastritis/enteritis like findings-this often is seen in patients with this syndrome as well. Patient was able to eat and drink here. She will be discharged home with a prescription for ativan and olanzapine for treatment of symptoms at home. Return ED precautions given. Lab Data 10/15/22 20:16 10/15/22 20:16 Labs/Radiology: Laboratory Results WBC 14.8 10^3/uL (4.0-10.0) H 10/15/22 20:16 RBC 4.19 10^6/uL (4.1-5.3) 10/15/22 20:16 Hgb 10.8 g/dL (11.5-15.3) L 10/15/22 20:16 Hct 33.6 % (37.0-47.0) L 10/15/22 20:16 MCV 80.2 fl (81-99) L 10/15/22 20:16 MCH 25.8 pg (28.0-34.0) L 10/15/22 20:16 MCHC 32.1 g/dL (30.0-36.0) 10/15/22 20:16 RDW 16.5 % (12.1-15.1) H 10/15/22 20:16 Plt Count 366 10^3/cmm (130-400) 10/15/22 20:16 MPV 10.0 fL (7.4-10.4) 10/15/22 20:16 Neut % (Auto) 77.9 % 10/15/22 20:16 Lymph % (Auto) 14.9 % 10/15/22 20:16 [place] % (Auto) 4.3 % 10/15/22 20:16 Eos % (Auto) 1.8 % 10/15/22 20:16 Baso % (Auto) 0.7 % 10/15/22 20:16 Neut # (Auto) 11.49 10^3/uL (1.8-7.7) H 10/15/22 20:16 Lymph # (Auto) 2.2 10^3/uL (0.8-4.8) 10/15/22 20:16 [place] # (Auto) 0.6 10^3/uL (0.2-0.9) 10/15/22 20:16 Eos # (Auto) 0.3 10^3/uL (0.0-0.8) 10/15/22 20:16 Baso # (Auto) 0.1 10^3/uL (0.0-0.1) 10/15/22 20:16 Nucleated RBC % (auto) 0 % 10/15/22 20:16 Nucleated RBCs # 0.0 /100WBC 10/15/22 20:16 Sodium 139 mmol/L (136-145) 10/15/22 20:16 Potassium 3.5 mmol/L (3.5-5.1) 10/15/22 20:16 Chloride 107 mmol/L (98-107) 10/15/22 20:16 Carbon Dioxide 20 mmol/L (22-29) L 10/15/22 20:16 Anion Gap 15.5 (5-19) 10/15/22 20:16 BUN 12 mg/dL (6-20) 10/15/22 20:16 Creatinine 0.7 mg/dL (0.5-0.9) 10/15/22 20:16 GFR Calculation 103.7 mL/min (90-130) 10/15/22 20:16 Glucose 87 mg/dL (65-115) 10/15/22 20:16 Calculated Osmolality 287 mOsm/kg (285-295) 10/15/22 20:16 Calcium 8.5 mg/dL (8.5-10.5) 10/15/22 20:16 Total Bilirubin 0.2 mg/dL (0.15-1.2) 10/15/22 20:16 AST 12 U/L (0-32) 10/15/22 20:16 ALT 8 U/L (0-33) 10/15/22 20:16 Alkaline Phosphatase 58 U/L (35-105) 10/15/22 20:16 Total Protein 6.8 g/dL (6.6-8.7) 10/15/22 20:16 Albumin 3.9 g/dL (3.5-5.2) 10/15/22 20:16 Globulin 2.9 g/dL (1.3-4.6) 10/15/22 20:16 Lipase 21 U/L (13-60) 10/15/22 20:16 HCG, Qual Negative (Negative) 10/15/22 20:16 Urine Color Yellow (Yellow) 10/15/22 20:52 Urine Appearance Cloudy (CLEAR) A 10/15/22 20:52 Urine pH 6.5 (5-7) 10/15/22 20:52 Ur Specific [place] 1.020 (1.005-1.030) 10/15/22 20:52 Urine Protein Neg (Negative) 10/15/22 20:52 Urine Glucose (UA) Norm (Normal) 10/15/22 20:52 Urine Ketones Negative (Negative) 10/15/22 20:52 Urine Blood 3+ (Negative) H 10/15/22 20:52 Urine Nitrate Negative (Negative) 10/15/22 20:52 Urine Bilirubin Neg (Negative) 10/15/22 20:52 Urine Urobilinogen Norm mg/dL (Negative) 10/15/22 20:52 Ur Leukocyte Esterase Negative (Negative) 10/15/22 20:52 Urine RBC 10-15 /hpf (0-2) H 10/15/22 20:52 Urine WBC 5-10 /hpf (0-5) H 10/15/22 20:52 Ur Squamous Epith Cells 0-4 /hpf (0-5) H 10/15/22 20:52 Amorphous Sediment 3+ /hpf 10/15/22 20:52 Urine Bacteria Not Reportable 10/15/22 20:52 Urine Mucus 2+ /hpf 10/15/22 20:52 Discharge Plan Discharge Patient Disposition: Home Clinical Impression: Cannabinoid hyperemesis syndrome Condition: Stable Prescriptions: New Ativan 1 mg tablet 1 mg PO Q6H PRN (Reason: nausea and vomiting) Qty: 14 0RF olanzapine 5 mg tablet 5 mg PO BID PRN (Reason: nausea and vomiting) Qty: 14 0RF Continued Reglan 10 mg tablet 10 mg PO Q6H PRN (Reason: nausea and vomiting) Qty: 20 0RF No Action escitalopram oxalate 20 mg tablet 20 mg PO DAILY Qty: 30 0RF Naprosyn 500 mg tablet 500 mg PO BID PRN (Reason: pain) Qty: 20 0RF Xulane 150-35 mcg/24 hr patch weekly 1 patch transdermal Q21D ondansetron 4 mg tablet,disintegrating 4 mg PO Q8H PRN (Reason: nausea and vomiting) Qty: 14 0RF Discharge Orders: Discharge ED (Routine); Ordered 10/15/22 Ordered By: Jasmyn Herring Referrals: Sarath Ramos MD [Primary Care Provider] - Activity Restrictions/Additional Instructions: At this time I highly suspect her symptoms are secondary to marijuana use. As bertha wade discussed with you being a habitual user you are going to have to discontinue the substance for a significant amount of time to notice any improvement. You have been provided prescription medications to help with the symptoms. Your blood work today overall is non-concerning. Please follow-up with your primary care provider next week if symptoms persist. You may return to the emergency department for worsening symptoms or uncontrollable symptoms at home. Coding Level of Care Code ED Loan Specialist for Rodrigo Palmer
[2022-10-15] MEDS: sodium chloride 0.9% 1,000 ML 999 ML IV (20:11)
[2022-10-15] MEDS: haloperidol inj 5 mg/mL INJ 1 mL 2.5 MG IVP (20:13)
[2022-10-15] MEDS: LORazepam 2 mg/mL INJ 1 mL IVP (20:13)
[2022-10-15 20:25] LABS: Basophils # 0.1 10^3/uL (0.0-0.1); Basophils % 0.7 %; Eosinophils # 0.3 10^3/uL (0.0-0.8); Eosinophils % 1.8 %; Hematocrit 33.6 % (37.0-47.0); Hemoglobin 10.8 g/dL (11.5-15.3); Lymphocytes # 2.2 10^3/uL (0.8-4.8); Lymphocytes % 14.9 %; Mean Corpuscular HGB Conc 32.1 g/dL (30.0-36.0); Mean Corpuscular Hemoglobin 25.8 pg (28.0-34.0); Mean Corpuscular Volume 80.2 fl (81-99); Monocytes # 0.6 10^3/uL (0.2-0.9); Monocytes % 4.3 %; Neutrophils # 11.49 10^3/uL (1.8-7.7); Neutrophils % 77.9 %; Nucleated Red Blood Cells % 0 %; Platelet Count 366 10^3/cmm (130-400); Red Blood Count 4.19 10^6/uL (4.1-5.3); Red Cell Distribution Width 16.5 % (12.1-15.1); White Blood Count 14.8 10^3/uL (4.0-10.0)
[2022-10-15 20:41] VITALS: PULSE 79; RESP 16; O2SAT 98
[2022-10-15 20:45] LABS: HCG, Serum Qual Negative (Negative)
[2022-10-15 20:47] LABS: Alanine Aminotransferase 8 U/L (0-33); Albumin Level 3.9 g/dL (3.5-5.2); Alkaline Phosphatase 58 U/L (35-105); Anion Gap 15.5 (5-19); Aspartate Amino Transferase 12 U/L (0-32); Blood Urea Nitrogen 12 mg/dL (6-20); Calcium 8.5 mg/dL (8.5-10.5); Carbon Dioxide 20 mmol/L (22-29); Chloride 107 mmol/L (98-107); Globulin 2.9 g/dL (1.3-4.6); Glomerular Filtration Rate 103.7 mL/min (90-130); Glucose 87 mg/dL (65-115); Lipase 21 U/L (13-60); Osmolality Calculated 287 mOsm/kg (285-295); Potassium 3.5 mmol/L (3.5-5.1); Sodium 139 mmol/L (136-145); Total Bilirubin 0.2 mg/dL (0.15-1.2); Total Protein 6.8 g/dL (6.6-8.7)
[2022-10-15 21:06] VITALS: BP 119/68; RESP 16
[2022-10-15 21:16] LABS: Add Urine Microscopic? YES; Bilirubin Urine Neg (Negative); Blood Urine 3+ (Negative); Glucose Urine UA Norm (Normal); Ketones Urine Negative (Negative); Leukocyte Esterase Urine Negative (Negative); Nitrate Urine Negative (Negative); Protein Urine Neg (Negative); Urine Appearance Cloudy (CLEAR); Urine Color Yellow (Yellow); Urobilinogen Urine Norm (Negative); pH Urine 6.5 (5-7)
[2022-10-15 21:17] LABS: Add Urine Culture? No; Amorphous Sediment Urine 3+ /hpf; Mucus Urine 2+ /hpf; Squamous Epithelial Cell Urine 0-4 /hpf (0-5)
[2022-10-15 21:40] VITALS: BP 144/75; PULSE 76; RESP 16; O2SAT 97
[2022-10-15 22:01] VITALS: BP 141/77; PULSE 75; RESP 16; O2SAT 98
[2022-10-15 22:03] VITALS: BP 141/77; PULSE 75; RESP 16; O2SAT 98
== END 2022-10-15 22:04 | disposition home or self-care (01) ==
PROVIDERS: Emergency Provider Physician Assistant; PCP Family Medicine
DX: R11.2 Nausea with vomiting, unspecified (principal); F12.90 Cannabis use, unspecified, uncomplicated
CPT/HCPCS: 80053; 81001; 83690; 84703; 85025; 96361; 96374; 96375; 99284; J1630; J2060; J7030

== ENCOUNTER 2022-10-29 09:05 | Observation (INO) | payer MEDICAID, SELFPAY ==
[2022-10-29] VITALS (8 sets, daily range): BP systolic 103–136; BP diastolic 57–84; PULSE 71–83; RESP 16–24; TEMP 36.9–37.2; O2SAT 97–100; BMI 18.1
--- NOTE | 2022-10-29 09:23 | ED_ITS ---
HPI - Abdominal Pain General: Chief Complaint: Abdominal Pain Stated Complaint: abd pain sent by Time Seen by Provider: 10/29/22 09:15 Source: patient Mode of arrival: ambulatory History of Present Illness: 22-year-old female presents emergency room with complaint of abdominal pain she was seen in the outlying urgent care they were concerned about possibility of appendicitis and direct injury. She has had this intermittently she states for about the last 2 days. She has taken some Tylenol with no relief she is very nauseous has not vomited yet this morning she denies dysuria urgency or frequency or diarrhea. This is has been an ongoing intermittent problem for her extending back to last March she has 8 ER visits for abdominal pain in 1 form or another one of them she had some abnormal uterine bleeding she was directed to gynecology unfortunately she has not been able to see them yet. Several of the other visits were successfully treated with Haldol and Ativan along with fluids. She has been seen at [facility] as well in the past and has difficulty with cannabinoid hyperemesis syndrome. There has been no hematochezia melena hematemesis or coffee-ground emesis. MD elicited complaint: abdominal pain Onset (ago): minute(s) Location: Diffuse Severity: moderate Quality: cramping Exacerbating factors: nothing Relieving factors: nothing Associated Symptoms: Reports nausea and poor appetite; Denies anorexia, belching, bloating, change in bowel habits, change in stool character, chills, coffee ground emesis, constipation, GI cramping, diarrhea, dyspepsia, dysuria, excessive flatus, fever(s), heartburn, hematochezia, hematuria, hematemesis, fecal incontinence, loose stools, melena, syncope and vomiting Review of Systems Const: Denies: fever(s) or chills Card: Denies: chest pain, palpitations or syncope Resp: Denies: dyspnea, productive cough or non-productive cough GI: Reports: nausea; Denies: vomiting, hematemesis, coffee ground emesis, heartburn, diarrhea, constipation, bloating, GI cramping, belching, excessive flatus, fecal incontinence, change in bowel habits, change in stool character, hematochezia or melena : Denies: dysuria or hematuria Skin/Breast: Denies: rash or pruritus PFSH ED PFSH: Medical History Anxiety Cannabis abuse The following information retrieved/edited from Behavior Assessment Report completed on 02/18/22: Donna meets the diagnostic criteria for F12.10 Cannabis Use Disorder, mild in that she reports: not managing to do what you should at work, home, or school because of substance use; continuing to use, even when it causes problems in relationships; continuing to use, even when you know you have a physical or psychological problem that could have been caused or made worse by the substance; and needing more of the substance to get the effect you want (tolerance). No pertinent family history Panic attack Psychiatric care Family History Denies family history of Colon cancer Ovarian cancer Diabetes Heart disease Breast cancer Hypertension Uterine cancer Thyroid disease Stroke Physical Exam Const: GENERAL APPEARANCE: cooperative ORIENTATION/CONSCIOUSNESS: Yes awake, Yes oriented to person, Yes oriented to place and Yes oriented to time HENMT: COMMON NORMALS: normocephalic, atraumatic and hearing grossly normal bilaterally HEAD & SCALP: normocephalic and atraumatic Resp: COMMON NORMALS: normal respiratory effort, No retractions, No use of accessory muscles and clear to auscultation bilaterally AUSCULTATION: clear to auscultation bilaterally Cardio: COMMON NORMALS: regular rate, regular rhythm and No murmurs present (Cardio) RATE: regular rate RHYTHM: regular rhythm GI: COMMON NORMALS: No hepatosplenomegaly present AUSCULTATION: Yes n ormoactive bowel sounds PALPATION: Yes Tenderness to palpation present (GI) (Diffuse nonspecific no peritoneal signs), No Guarding due to palpation present (GI) and Yes No hepatosplenomegaly present Extremity: COMMON NORMALS: normal to inspection, capillary refill normal, no clubbing, cyanosis or edema, no calf tenderness and no pedal edema Neuro: SENSORIUM/ORIENTATION: Yes oriented to person, Yes oriented to place and Yes oriented to time Skin: COMMON NORMALS: no rashes or lesions noted GENERAL SKIN EXAM: no rashes or lesions noted Course Vital Signs: Vital signs: Vital Signs Temperature 98.5 F 10/29/22 09:07 Pulse Rate 78 10/29/22 13:12 Respiratory Rate 18 10/29/22 13:12 Blood Pressure 136/72 10/29/22 13:12 Pulse Oximetry 97 10/29/22 13:12 Oxygen Delivery Me thod Room Air 10/29/22 11:20 MDM - Abdominal Pain Medical Decision Making CT shows: Inflammation of the terminal ileum some thickening. No evidence of acute appendicitis no perforation. Discussed with radiology. Will admit for unspecified colitis cover with antibiotics. NPO. Orders written. Medical Records I reviewed the patient's medical records. Lab Data I reviewed the patient's lab results. 10/29/22 09:25 10/29/22 09:25 Labs/Radiology: Radiology Impressions Abdomen/Pelvis CT 10/29/22 09:42 IMPRESSION: 1. Abnormal long segment small bowel loops. There is marked wall enhancement with increased central fluid. Acute inflammatory bowel disease and infection and ischemia should be considered. Similar findings but to a lesser extent in the colon. 2. No free air is identified. 3. Small portion of the appendix is identified within the inflammatory process in the RIGHT lower quadrant. The portion of the appendix visualized is small caliber and contains air. 4. Moderate free fluid in the pelvis is more than physiologic. 5. There is significant induration and stranding of the fat within the pelvis suggesting inflammation or infection. Consider peritonitis. 6. Javon's lobe. Notified James Prakash DO at 10/29/2022 11:16 AM. Laboratory Results WBC 15.0 10^3/uL (4.0-10.0) H 10/29/22 09:25 RBC 4.83 10^6/uL (4.1-5.3) 10/29/22 09:25 Hgb 12.1 g/dL (11.5-15.3) 10/29/22 09:25 Hct 39.3 % (37.0-47.0) 10/29/22 09:25 MCV 81.4 fl (81-99) 10/29/22 09:25 MCH 25.1 pg (28.0-34.0) L 10/29/22 09:25 MCHC 30.8 g/dL (30.0-36.0) 10/29/22 09:25 RDW 15.8 % (12.1-15.1) H 10/29/22 09:25 Plt Count 479 10^3/cmm (130-400) H 10/29/22 09:25 MPV 9.4 fL (7.4-10.4) 10/29/22 09:25 Neut % (Auto) 79.8 % 10/29/22 09:25 Lymph % (Auto) 10.4 % 10/29/22 09:25 York % (Auto) 7.0 % 10/29/22 09:25 Eos % (Auto) 1.7 % 10/29/22 09:25 Baso % (Auto) 0.7 % 10/29/22 09:25 Neut # (Auto) 11.95 10^3/uL (1.8-7.7) H 10/29/22 09:25 Lymph # (Auto) 1.6 10^3/uL (0.8-4.8) 10/29/22 09:25 York # (Auto) 1.0 10^3/uL (0.2-0.9) H 10/29/22 09:25 Eos # (Auto) 0.3 10^3/uL (0.0-0.8) 10/29/22 09:25 Baso # (Auto) 0.1 10^3/uL (0.0-0.1) 10/29/22 09:25 Nucleated RBC % (auto) 0 % 10/29/22 09:25 Nucleated RBCs # 0.0 /100WBC 10/29/22 09:25 Sodium 137 mmol/L (136-145) 10/29/22 09:25 Potassium 4.1 mmol/L (3.5-5.1) 10/29/22 09:25 Chloride 104 mmol/L (98-107) 10/29/22 09:25 Carbon Dioxide 24 mmol/L (22-29) 10/29/22 09:25 Anion Gap 13.1 (5-19) 10/29/22 09:25 BUN 8 mg/dL (6-20) 10/29/22 09:25 Creatinine 0.5 mg/dL (0.5-0.9) 10/29/22 09:25 GFR Calculation 152.9 mL/min (90-130) H 10/29/22 09:25 Glucose 115 mg/dL (65-115) 10/29/22 09:25 Calculated Osmolality 283 mOsm/kg (285-295) L 10/29/22 09:25 Calcium 9.3 mg/dL (8.5-10.5) 10/29/22 09:25 Total Bilirubin 0.3 mg/dL (0.15-1.2) 10/29/22 09:25 AST 14 U/L (0-32) 10/29/22 09:25 ALT 9 U/L (0-33) 10/29/22 09:25 Alkaline Phosphatase 83 U/L (35-105) 10/29/22 09:25 Total Protein 7.9 g/dL (6.6-8.7) 10/29/22 09:25 Albumin 4.0 g/dL (3.5-5.2) 10/29/22 09:25 Globulin 3.9 g/dL (1.3-4.6) 10/29/22 09:25 Lipase 12 U/L (13-60) L 10/29/22 09:25 HCG, Qual Negative (Negative) 10/29/22 09:25 Urine Color Dark yellow (Yellow) 10/29/22 09:32 Urine Appearance Sl hazy (CLEAR) A 10/29/22 09:32 Urine pH 6 (5-7) 10/29/22 09:32 Ur Specific Barclay 1.025 (1.005-1.030) 10/29/22 09:32 Urine Protein Trace (Negative) 10/29/22 09:32 Urine Glucose (UA) Norm (Normal) 10/29/22 09:32 Urine Ketones Negative (Negative) 10/29/22 09:32 Urine Blood Neg (Negative) 10/29/22 09:32 Urine Nitrate Negative (Negative) 10/29/22 09:32 Urine Bilirubin 1+ (Negative) H 10/29/22 09:32 Urine Urobilinogen 1 mg/dL (Negative) H 10/29/22 09:32 Ur Leukocyte Esterase Negative (Negative) 10/29/22 09:32 Urine RBC 0-4 /hpf (0-2) H 10/29/22 09:32 Urine WBC 25-40 /hpf (0-5) H 10/29/22 09:32 Ur Squamous Epith Cells 25-40 /hpf (0-5) H 10/29/22 09:32 Amorphous Sediment Not Reportable 10/29/22 09:32 Urine Bacteria 1+ /hpf (NONE) H 10/29/22 09:32 Urine Mucus 2+ /hpf 10/29/22 09:32 Urine Yeast Trace /hpf 10/29/22 09:32 Discharge Plan Discharge Patient Disposition: Admitted As Inpatient Admit Provider: Jorge Larson Clinical Impression: Colitis Condition: Stable Coding Level of Care Code ED Chief Quality Officer for Rodrigo Palmer
[2022-10-29 09:31] LABS: Basophils # 0.1 10^3/uL (0.0-0.1); Basophils % 0.7 %; Eosinophils # 0.3 10^3/uL (0.0-0.8); Eosinophils % 1.7 %; Hematocrit 39.3 % (37.0-47.0); Hemoglobin 12.1 g/dL (11.5-15.3); Lymphocytes # 1.6 10^3/uL (0.8-4.8); Lymphocytes % 10.4 %; Mean Corpuscular HGB Conc 30.8 g/dL (30.0-36.0); Mean Corpuscular Hemoglobin 25.1 pg (28.0-34.0); Mean Corpuscular Volume 81.4 fl (81-99); Mean Platelet Volume 9.4 fL (7.4-10.4); Neutrophils # 11.95 10^3/uL (1.8-7.7); Neutrophils % 79.8 %; Nucleated Red Blood Cells % 0 %; Platelet Count 479 10^3/cmm (130-400); Red Blood Count 4.83 10^6/uL (4.1-5.3); Red Cell Distribution Width 15.8 % (12.1-15.1)
[2022-10-29] MEDS: ondansetron 2 mg/ML SDV 2 mL 4 MG IVP (09:35)
[2022-10-29] MEDS: sodium chloride 0.9% 1,000 ML 999 ML IV ×2 (09:36→11:05)
--- NOTE | 2022-10-29 09:42 | CT_ITS ---
WS: [id number] CT ABDOMEN AND PELVIS WITH CONTRAST HISTORY: RIGHT pain with nausea and vomiting for 2 weeks. TECHNIQUE: Imaging performed of the abdomen and pelvis with IV contrast. Single phase imaging of the abdomen. Coronal and sagittal reformats are submitted. All CT scans at [facility] use at [facility] one of these dose optimization techniques: automated exposure control; mA and/or kV adjustment per patient size (includes targeted exams where dose is matched to clinical indication); or iterative re construction. IV CONTRAST: Omnipaque 350; 100 mL IV. Oral contrast: No DLP: 300.65 mGy.cm COMPARISON: 10/11/2022 Lower thorax: Lung bases are clear. Heart is normal size. No hiatal hernia. Liver/biliary system: Liver is markedly elongated to 19 cm in length. RIGHT lobe of the liver extends to the iliac crest consistent with a Javon's lobe. Mild hepatic steatosis along the falciform ligam ent. No bile duct dilatation. Gallbladder: Mildly elongated gallbladder. No definite wall thickening. There is an adjacent small tran wel which does demonstrate hazy attenuation and thickening. Pancreas: Normal size pancreas and pancreatic duct. No adjacent inflammation. Spleen: Normal size spleen. No mass or infarct. Adrenal glands: Normal. Right kidney: Normal. Left kidney: Normal. Aorta: Normal. Lymphadenopathy: No significantly enlarged lymph nodes are identified. Free fluid: There is a small amount of fluid adjacent to the inferior RIGHT lobe of the liver and caroline e fluid in the pelvis which is slightly greater than physiologic. GI tract: Normally distended stomach. Numerous loops of small bowel are abnormal. The most significan t small bowel abnormality in the LEFT abdomen extending into the pelvis. There are numerous fluid-juanito led loops of small bowel with enhancement of the wall. There is thickening, enhancement and shaggy ap pearance involving long segments of the small bowel greatest in the pelvis. No free air is identified on this exam. Loop of small bowel in the RIGHT lower quadrant is probably the terminal ilium with fe calization. Colon is nondistended there is also mild hazy attenuation and shagginess involving the wa ll of the colon. No obstructive pattern. Abdominal wall: Unremarkable abdominal wall. No hernia. Pelvis: Free fluid in the pelvis is more than physiologic. Numerous small bowel loops are identified within the pelvis. There is hazy attenuation and inflammation noted within the pelvis surrounding the uterus and the small bowel loops. Bones: Unremarkable. CT/CT abdomen pelvis w con* [id number] IMPRESSION: 1. Abnormal long segment small bowel loops. There is marked wall enhancement w ith increased central fluid. Acute inflammatory bowel disease and infection and ischemia should be considered. Similar findings but to a lesser extent in the colon. 2. No free air is identified. 3. Small portion of the appendix is identified within the inflammatory process in the RIGHT lower quadrant. The portion of the appendix visualized is small c aliber and contains air. 4. Moderate free fluid in the pelvis is more than physiologic. 5. There is significant induration and stranding of the fat within the pelvis suggesting inflammation or infection. Consider peritonitis. 6. Javon's lobe. Notified James Prakash DO at 10/29/2022 11:16 AM.
[2022-10-29 10:05] LABS: Alanine Aminotransferase 9 U/L (0-33); Alkaline Phosphatase 83 U/L (35-105); Anion Gap 13.1 (5-19); Aspartate Amino Transferase 14 U/L (0-32); Blood Urea Nitrogen 8 mg/dL (6-20); Calcium 9.3 mg/dL (8.5-10.5); Carbon Dioxide 24 mmol/L (22-29); Chloride 104 mmol/L (98-107); Globulin 3.9 g/dL (1.3-4.6); Glomerular Filtration Rate 152.9 mL/min (90-130); Glucose 115 mg/dL (65-115); Lipase 12 U/L (13-60); Osmolality Calculated 283 mOsm/kg (285-295); Potassium 4.1 mmol/L (3.5-5.1); Sodium 137 mmol/L (136-145); Total Bilirubin 0.3 mg/dL (0.15-1.2); Total Protein 7.9 g/dL (6.6-8.7)
[2022-10-29 10:14] LABS: HCG, Serum Qual Negative (Negative)
[2022-10-29 10:15] LABS: Urine Color Dark Yellow (Yellow)
[2022-10-29 10:16] LABS: Add Urine Microscopic? YES; Bilirubin Urine 1+ (Negative); Blood Urine Neg (Negative); Glucose Urine UA Norm (Normal); Ketones Urine Negative (Negative); Leukocyte Esterase Urine Negative (Negative); Nitrate Urine Negative (Negative); Protein Urine Trace (Negative); RBC Urine 0-4 /hpf (0-2); Specific Gravity, Urine 1.025 (1.005-1.030); Urine Appearance SL Hazy (CLEAR); Urobilinogen Urine 1 mg/dL (Negative); WBC Urine 25-40 /hpf (0-5); pH Urine 6 (5-7)
[2022-10-29 10:17] LABS: Add Urine Culture? Yes; Bacteria Urine 1+ /hpf; Mucus Urine 2+ /hpf; Squamous Epithelial Cell Urine 25-40 /hpf (0-5)
[2022-10-29] MEDS: iohexol 350 mg/mL 500 mL Btl (per mL) IV (10:39)
[2022-10-29] MEDS: haloperidol inj 5 mg/mL INJ 1 mL 2.5 MG IVP (11:19)
[2022-10-29] MEDS: LORazepam 2 mg/mL INJ 1 mL IVP (11:19)
[2022-10-29] MEDS: morphine 4 mg/mL SDV 1 mL IVP ×2 (11:50→20:51)
[2022-10-29] MEDS: metroNIDAZOLE IV 500 MG/100 ML PREMIX 100 MG IV ×2 (11:53→20:44)
--- NOTE | 2022-10-29 12:37 | PM.HP ---
Providers/Chief Complaint Primary Care Provider: Sarath Ramos MD Chief Complaint: abd pain sent by History of Present Illness Donna Mullins is a 22 year old female who has history of nicotine dependence, marijuana use, no history of family history of colon cancer or inflammatory bowel disease presented to the hospital for chief complaint of nausea and abdominal pain and diarrhea. She has been extremely abdominal pain for quite some time which has gotten worse in last few days, she has not noticed any fever, vomiting blood in stool or mucus. There is concern for ileitis, there is hepatomegaly evident on the CT scan with leukocytosis no signs of appendicitis I did review CAT scan report with the radiologist and Dr. Blcakwell Review of Systems Const: Reports: chills; Denies: fever(s) Eyes: Denies: change in vision ENMT: Denies: throat pain Card: Denies: chest pain Resp: Denies: dyspnea GI: Denies: abdominal pain : Denies: flank pain Musc: Denies: neck pain Skin/Breast: Denies: rash Neuro: Denies: headache(s) Psych: Reports: anxiety Endo: Denies: polyuria Medications/Allergies Home Medications Medication Instructions Recorded Confirmed Last Taken Type norelgestromin 150 mcg-e.estradiol 1 patch transdermal Q21D 06/02/22 10/29/22 Unknown History 35 mcg/24 hr weekly transderm patch (Xulane) Allergies Allergy/AdvReac Type Severity Reaction Status Date / Time Penicillins Allergy Intermediate ADR-Shakine Verified 10/29/22 09:13 ss PFSH Acute PFSH: Medical History Anxiety Cannabis abuse The following information retrieved/edited from Behavior Assessment Report completed on 02/18/22: Donna meets the diagnostic criteria for F12.10 Cannabis Use Disorder, mild in that she reports: not managing to do what you should at work, home, or school because of substance use; continuing to use, even when it causes problems in relationships; continuing to use, even when you know you have a physical or psychological problem that could have been caused or made worse by the substance; and needing more of the substance to get the effect you want (tolerance). No pertinent family history Panic attack Psychiatric care Family History Denies family history of Colon cancer Ovarian cancer Diabetes Heart disease Breast cancer Hypertension Uterine cancer Thyroid disease Stroke Vitals/I&O/Wt Last Vital Signs Temp 98.5 F 10/29/22 09:07 Pulse 80 10/29/22 12:04 BP 103/57 10/29/22 12:04 Pulse Ox 98 10/29/22 12:04 O2 Del Method Room Air 10/29/22 11:20 10/28/22 10/29/22 10/29/22 22:59 06:59 14:59 Intake Total 1000 / 1000 Balance 1000 / 1000 Weight last 48 hrs Weight 50.802 kg Physical Exam Narrative: Patient in supine Euvolemic Mild tenderness to deep palpation right lower quadrant No active emesis Awake and alert GCS 15 Currently on room air Able to provide history Nonfocal neuro exam GCS 15 Data 10/29/22 09:25 10/29/22 09:25 A&P Assessment and plan (1) Adjustment disorder: (2) Generalized anxiety disorder: (3) Major depressive disorder, recurrent episode, unspecified: (4) Enterocolitis: Plan Enterocolitis No signs of appendicitis No active signs of sepsis Patient is not Smoker, cannabis use disorder Afebrile Patient not endorsing bloody mucus or hematochezia Concern for IBD No family history of colon cancer or IBD Patient will need outpatient colonoscopy once her infection resolves We will start her on ciprofloxacin and Flagyl start clear liquids and IV fluids Full code Clear liquids DVT prophylaxis Lovenox Severe hepatomegaly, check for EBV IgM, hepatitis panel Spoke with radiologist and Dr. Blackwell about the CT scan report Attestations Medical Necessity Statement*: Anticipating discharge within 48 hours Diagnoses Adjustment disorder F43.20 Generalized anxiety disorder F41.1 Major depressive disorder, recurrent episode, unspecified F33.9 Enterocolitis K52.9
[2022-10-29] MEDS: ciprofloxacin 400 MG/200 ML PREMIX 200 MG IV ×2 (12:58→23:32)
[2022-10-29] MEDS: sodium chloride 0.9% 1,000 ML 100 ML IV (14:22)
[2022-10-29 15:47] LABS: Monoscreen Negative (Negative)
[2022-10-29 15:59] LABS: HIV 1 & 2 Antibody Non-Reactive (Non-Reactiv); HIV 1 & 2 Antigen Non-Reactive (Non-Reactiv)
[2022-10-29 16:03] LABS: Erythrocyte Sedimentation Rate 12 mm/hr (0-15)
[2022-10-29 16:05] LABS: Estmated Average Glucose 105; Hemoglobin A1C 5.3 % (4.0-6.0)
[2022-10-29 16:07] LABS: Hepatitis A Antibody IgM Non-Reactive (Nonreactive); Hepatitis B Core AB, Total Non-Reactive (Nonreactive); Hepatitis B Surface Antigen Non-Reactive (Nonreactive); Hepatitis C Virus Antibody Non-Reactive (Nonreactive)
[2022-10-29 17:04] LABS: Hepatitis B Surface AB 4.7 (11.5-1000)
[2022-10-29] MEDS: pantoprazole 40 mg SDV IVP (17:54)
[2022-10-29] MEDS: morphine IR 15 mg Tablet PO (18:05)
[2022-10-30] VITALS: BP 129/69; PULSE 68; RESP 16; TEMP 37; O2SAT 98
[2022-10-30 04:00] VITALS: BP 126/80; PULSE 57; RESP 16; TEMP 36.7; O2SAT 99
[2022-10-30 04:15] LABS: Basophils # 0.1 10^3/uL (0.0-0.1); Basophils % 0.8 %; Eosinophils # 0.6 10^3/uL (0.0-0.8); Eosinophils % 5.1 %; Hematocrit 30.4 % (37.0-47.0); Hemoglobin 9.5 g/dL (11.5-15.3); Lymphocytes # 2.5 10^3/uL (0.8-4.8); Lymphocytes % 22.9 %; Mean Corpuscular HGB Conc 31.3 g/dL (30.0-36.0); Mean Corpuscular Hemoglobin 26.1 pg (28.0-34.0); Mean Corpuscular Volume 83.5 fl (81-99); Mean Platelet Volume 9.4 fL (7.4-10.4); Monocytes # 0.8 10^3/uL (0.2-0.9); Monocytes % 7.3 %; Neutrophils # 6.84 10^3/uL (1.8-7.7); Neutrophils % 63.6 %; Nucleated Red Blood Cells % 0 %; Platelet Count 331 10^3/cmm (130-400); Red Blood Count 3.64 10^6/uL (4.1-5.3); Red Cell Distribution Width 15.7 % (12.1-15.1); White Blood Count 10.8 10^3/uL (4.0-10.0)
[2022-10-30 04:34] LABS: Lactate (Lactic Acid level) 0.6 mmol/L (0.5-2.2)
[2022-10-30 04:35] LABS: C Reactive Protein 26.8 mg/L (0.0-4.9); Magnesium 1.8 mg/dL (1.7-2.3)
[2022-10-30] MEDS: sodium chloride 0.9% 1,000 ML 100 ML IV (04:46)
[2022-10-30] MEDS: metroNIDAZOLE IV 500 MG/100 ML PREMIX 100 MG IV (04:47)
[2022-10-30] MEDS: ciprofloxacin 400 MG/200 ML PREMIX 200 MG IV (06:23)
[2022-10-30 07:57] VITALS: BP 118/71; PULSE 58; RESP 16; TEMP 36.7; O2SAT 99
[2022-10-30] MEDS: metoclopramide 5 mg/mL SDV 2 mL IVP (08:28)
[2022-10-30 08:33] VITALS: RESP 18
[2022-10-30] MEDS: morphine IR 15 mg Tablet PO (08:33)
[2022-10-30] MEDS: pantoprazole 40 mg SDV IVP (08:38)
[2022-10-30 08:46] VITALS: PULSE 62; RESP 16; O2SAT 99
--- NOTE | 2022-10-30 11:08 | PM.DCS ---
Discharge Providers Date of Admission: 10/29/22 12:13 Date of Discharge: October 30, 2022 Attending Provider at Admission: Jorge Larson MD Attending Provider at Discharge: Jorge Larson MD Primary Care Provider: Sarath Ramos MD Diagnoses at Discharge Discharge Diagnosis (1) Adjustment disorder: Status: Acute (2) Generalized anxiety disorder: Status: Chronic Permanent problem details: The following information retrieved/edited from Behavior Assessment Report completed on 02/18/22: Donna meets the diagnostic criteria for Generalized Anxiety Disorder in that she reports: excessive anxiety and worry, occurring more days than not for at least six months, about a number of events or activities; difficult to control the worry; the anxiety and worry are associated with restlessness or feeling keyed up or on edge; being easily fatigued; difficulty concentrating or mind going blank; irritability; sleep disturbances. The anxiety, worry, and physical symptoms cause clinically significant distress or impairment in social, occupational, or other important areas of functioning. (3) Major depressive disorder, recurrent episode, unspecified: Status: Chronic Permanent problem details: The following information retrieved/edited from Behavior Assessment Report completed on 02/18/22: Donna meets the diagnostic criteria for Major Depressive Disorder, recurrent, moderate in that she reports: depressed mood most of the day, nearly every day, as indicated by either subjective report or observation made by others; markedly diminished interest or pleasure in all, or almost all, activities most of the day, nearly every day; decrease or increase in appetite nearly every day; insomnia or hypersomnia nearly every day; psychomotor agitation or retardation nearly every day; fatigue or loss of energy nearly every day; feelings of worthlessness or excessive or inappropriate guilt nearly every day; recurrent thoughts of , recurrent suicidal ideation without a specific plan, or a suicide attempt or a specific plan for committing suicide. The symptoms cause clinically significant distress or impairment in social, occupational, or other substance or to another medical condition. (4) Enterocolitis: Status: Acute Reason for Visit Reason for Visit: abd pain sent by Hospital Course Hospital Course 22-year female who presented to the hospital for abdominal pain right lower quadrant area, white count was 15,000, she was afebrile, her only symptom was abdominal pain along nausea she has not experienced any hematochezia, mucus or blood in her stool, no history of inflammatory bowel disease in the family, CT scan of abdomen pelvis showed ileitis, patient's symptoms resolved with use of IV fluids ciprofloxacin and Flagyl she was able to tolerate her diet. Patient is stating that she recently stopped using oral contraceptive pills which she was using an implantable form. Her liver is enlarged 19 cm nontender hepatitis panel negative HIV panel negative. Her boyfriend was sick, there is a possibility for infectious mononucleosis, I have sent EBV IgM and IgG along DELANO and AMA. Hepatitis panel is negative. She remained afebrile. She is being discharged with referral to see a spare fixer at [facility] for her hepatomegaly White count at the time of discharge is 10.8, hemoglobin 9.5, AST 14, ALT 9, alk phosphatase 83, bilirubin normal, hemoglobin A1c 5.3 Patient is not Physical Exam Narrative: GCS 15 Awake and alert Tolerating diet Euvolemic Abdominal pain has improved Enlarged liver nontender Discharge Data Studies Completed and Pending Completed Studies During Hospitalization Category Date Time Status CT abdomen pelvis w con* [id number] Stat Cat Scan 10/29/22 09:42 Completed Pending at discharge Category Date Time Status AMA [Mitochondrial AB Screen] Routine Lab 10/29/22 15:08 Received DELANO Screen w/ Reflex Routine Lab 10/29/22 15:08 Received Anti-Neutrophil Cytoplasmic AB Routine Lab 10/29/22 15:08 Received EBV IGG & IGM Routine Lab 10/29/22 15:08 Received Urine Culture Stat Lab 10/29/22 09:32 Results Radiology Impressions Abdomen/Pelvis CT 10/29/22 09:42 IMPRESSION: 1. Abnormal long segment small bowel loops. There is marked wall enhancement with increased central fluid. Acute inflammatory bowel disease and infection and ischemia should be considered. Similar findings but to a lesser extent in the colon. 2. No free air is identified. 3. Small portion of the appendix is identified within the inflammatory process in the RIGHT lower quadrant. The portion of the appendix visualized is small caliber and contains air. 4. Moderate free fluid in the pelvis is more than physiologic. 5. There is significant induration and stranding of the fat within the pelvis suggesting inflammation or infection. Consider peritonitis. 6. Javon's lobe. Notified James Prakash DO at 10/29/2022 11:16 AM. Laboratory Results WBC 10.8 10^3/uL (4.0-10.0) H 10/30/22 04:00 RBC 3.64 10^6/uL (4.1-5.3) L 10/30/22 04:00 Hgb 9.5 g/dL (11.5-15.3) L 10/30/22 04:00 Hct 30.4 % (37.0-47.0) L 10/30/22 04:00 MCV 83.5 fl (81-99) 10/30/22 04:00 MCH 26.1 pg (28.0-34.0) L 10/30/22 04:00 MCHC 31.3 g/dL (30.0-36.0) 10/30/22 04:00 RDW 15.7 % (12.1-15.1) H 10/30/22 04:00 Plt Count 331 10^3/cmm (130-400) D 10/30/22 04:00 MPV 9.4 fL (7.4-10.4) 10/30/22 04:00 Neut % (Auto) 63.6 % 10/30/22 04:00 Lymph % (Auto) 22.9 % 10/30/22 04:00 [place] % (Auto) 7.3 % 10/30/22 04:00 Eos % (Auto) 5.1 % 10/30/22 04:00 Baso % (Auto) 0.8 % 10/30/22 04:00 Neut # (Auto) 6.84 10^3/uL (1.8-7.7) 10/30/22 04:00 Lymph # (Auto) 2.5 10^3/uL (0.8-4.8) 10/30/22 04:00 [place] # (Auto) 0.8 10^3/uL (0.2-0.9) 10/30/22 04:00 Eos # (Auto) 0.6 10^3/uL (0.0-0.8) 10/30/22 04:00 Baso # (Auto) 0.1 10^3/uL (0.0-0.1) 10/30/22 04:00 Nucleated RBC % (auto) 0 % 10/30/22 04:00 Nucleated RBCs # 0.0 /100WBC 10/30/22 04:00 ESR 12 mm/hr (0-15) 10/29/22 15:08 Sodium 137 mmol/L (136-145) 10/29/22 09:25 Potassium 4.1 mmol/L (3.5-5.1) 10/29/22 09:25 Chloride 104 mmol/L (98-107) 10/29/22 09:25 Carbon Dioxide 24 mmol/L (22-29) 10/29/22 09:25 Anion Gap 13.1 (5-19) 10/29/22 09:25 BUN 8 mg/dL (6-20) 10/29/22 09:25 Creatinine 0.5 mg/dL (0.5-0.9) 10/29/22 09:25 GFR Calculation 152.9 mL/min (90-130) H 10/29/22 09:25 Glucose 115 mg/dL (65-115) 10/29/22 09:25 Estimat Average Glucose 105 10/29/22 15:08 Hemoglobin A1c 5.3 % (4.0-6.0) 10/29/22 15:08 Calculated Osmolality 283 mOsm/kg (285-295) L 10/29/22 09:25 Lactate 0.6 mmol/L (0.5-2.2) 10/30/22 04:00 Calcium 9.3 mg/dL (8.5-10.5) 10/29/22 09:25 Magnesium 1.8 mg/dL (1.7-2.3) 10/30/22 04:00 Total Bilirubin 0.3 mg/dL (0.15-1.2) 10/29/22 09:25 AST 14 U/L (0-32) 10/29/22 09:25 ALT 9 U/L (0-33) 10/29/22 09:25 Alkaline Phosphatase 83 U/L (35-105) 10/29/22 09:25 C-Reactive Protein 26.8 mg/L (0.0-4.9) H 10/30/22 04:00 Total Protein 7.9 g/dL (6.6-8.7) 10/29/22 09:25 Albumin 4.0 g/dL (3.5-5.2) 10/29/22 09:25 Globulin 3.9 g/dL (1.3-4.6) 10/29/22 09:25 Lipase 12 U/L (13-60) L 10/29/22 09:25 HCG, Qual Negative (Negative) 10/29/22 09:25 Urine Color Dark yellow (Yellow) 10/29/22 09:32 Urine Appearance Sl hazy (CLEAR) A 10/29/22 09:32 Urine pH 6 (5-7) 10/29/22 09:32 Ur Specific [place] 1.025 (1.005-1.030) 10/29/22 09:32 Urine Protein Trace (Negative) 10/29/22 09:32 Urine Glucose (UA) Norm (Normal) 10/29/22 09:32 Urine Ketones Negative (Negative) 10/29/22 09:32 Urine Blood Neg (Negative) 10/29/22 09:32 Urine Nitrate Negative (Negative) 10/29/22 09:32 Urine Bilirubin 1+ (Negative) H 10/29/22 09:32 Urine Urobilinogen 1 mg/dL (Negative) H 10/29/22 09:32 Ur Leukocyte Esterase Negative (Negative) 10/29/22 09:32 Urine RBC 0-4 /hpf (0-2) H 10/29/22 09:32 Urine WBC 25-40 /hpf (0-5) H 10/29/22 09:32 Ur Squamous Epith Cells 25-40 /hpf (0-5) H 10/29/22 09:32 Amorphous Sediment Not Reportable 10/29/22 09:32 Urine Bacteria 1+ /hpf (NONE) H 10/29/22 09:32 Urine Mucus 2+ /hpf 10/29/22 09:32 Urine Yeast Trace /hpf 10/29/22 09:32 Hepatitis A IgM Ab Non-reactive (Nonreactive) 10/29/22 15:08 Hep Bs Antigen Non-reactive (Nonreactive) 10/29/22 15:08 Hep Bs Antibody 4.7 (11.5-1000) L 10/29/22 15:08 Hep B Core Total Ab Non-reactive (Nonreactive) 10/29/22 15:08 Hepatitis C Antibody Non-reactive (Nonreactive) 10/29/22 15:08 Monoscreen Negative (Negative) 10/29/22 15:08 HIV 1&2 Ab & HIV 1 Ag Non-reactive (Non-Reactiv) 10/29/22 15:08 HIV 1&2 Antibody Non-reactive (Non-Reactiv) 10/29/22 15:08 Vitals Last Vital Signs Temp 98.1 F 10/30/22 07:57 Pulse 62 10/30/22 08:46 Resp 16 10/30/22 08:46 BP 118/71 10/30/22 07:57 Pulse Ox 99 10/30/22 08:46 O2 Del Method Room Air 10/30/22 08:46 Discharge Plan Discharge Patient Disposition: Home Condition: Stable Prescriptions: New ciprofloxacin HCl 500 mg tablet 500 mg PO Q12H Qty: 10 0RF metronidazole 500 mg tablet 500 mg PO Q8H 5 Days Qty: 15 0RF Discontinued Xulane 150-35 mcg/24 hr patch weekly 1 patch transdermal Q21D Discharge Orders: Discharge Order (Routine); Ordered 10/30/22 Ordered By: Jorge Larson Referrals: Ted Galicia MD [Referring] - 1 month ([facility] for hepatomegaly) Sarath Ramos MD [Primary Care Provider] - 11/06/22 10:00 am Discharge Diet: Regular Discharge Activity: Increase activity as tolerated Patient Instructions: Opioid Safety Activity Restrictions/Additional Instructions: I am giving you referral to see a spare fixer at [facility] which is in [place], please call them to make an appointment within the next 3 to 4 weeks Please do not use oral contraceptive pills in any form for now because if you are enlarged liver Discharge Attestations Time Spent in Discharge Care*: greater than 30 min Status at Discharge: Cognitive status at discharge: cognitively intact, Behavioral status at discharge: cooperative, Quality Metrics Clinical Quality Measures [ No reported AMI, CVA or VTE this stay] Coding Level of Care Code Acute Code for Chg Fwd Diagnoses Adjustment disorder F43.20 Generalized anxiety disorder F41.1 Major depressive disorder, recurrent episode, unspecified F33.9 Enterocolitis K52.9
[2022-10-30 11:51] VITALS: BP 118/71; PULSE 62; RESP 16; TEMP 36.7; O2SAT 99
[2022-11-02 12:45] LABS: EBV IGM TEST <36.00 U/mL
[2022-11-02 16:35] LABS: Anti-Nuclear Antibody Screen NEGATIVE (NEGATIVE)
[2022-11-08 03:51] LABS: ANCA Screen NEGATIVE (NEGATIVE)
== END 2022-10-30 11:59 | disposition home or self-care (01) ==
LOC: ER 09:28 → MEDSURG 13:14
PROVIDERS: Admitting Provider Internal Medicine; Emergency Provider Family Medicine; PCP Family Medicine; Visit Provider Internal Medicine
DX: F43.20 Adjustment disorder, unspecified (principal); F41.1 Generalized anxiety disorder; F33.9 Major depressive disorder, recurrent, unspecified; K52.9 Noninfective gastroenteritis and colitis, unspecified; R16.0 Hepatomegaly, not elsewhere classified; F12.90 Cannabis use, unspecified, uncomplicated
CPT/HCPCS: 36415; 74177; 80053; 81001; 83036; 83516; 83605; 83690; 83735; 84703; 85025; 85651; 86036; 86038; 86140; 86308; 86664; 86665; 86705; 86706; 86709; 86803; 87086; 87340; 87806; 96365; 96366; 96367; 96375; 96376; 99285; C9113; G0378; J0744; J1630; J2060; J2270; J2405; J2765; J3490; J7030; Q9967

== ENCOUNTER 2022-10-30 19:31 | Emergency (ER) | payer MEDICAID, SELFPAY ==
[2022-10-30 19:39] VITALS: BP 128/84; PULSE 92; RESP 17; TEMP 36.9; O2SAT 97
[2022-10-30 21:30] VITALS: BP 112/69; PULSE 61; RESP 16; O2SAT 98
[2022-10-30 22:00] VITALS: BP 125/82; PULSE 64; O2SAT 100
--- NOTE | 2022-10-30 22:10 | W.ED.ABDPA2 ---
HPI - Abdominal Pain General: Chief Complaint: Abdominal Pain Stated Complaint: abd pain Time Seen by Provider: 10/30/22 21:23 History of Present Illness: 22-year-old female presents emergency room with nausea and vomiting for the past 2 hours. Patient further reveals that she was seen and evaluated for the similar complaint few days ago and admitted. She was discharged today. Patient also complains of abdominal pain described as cramping sensation with severity of 4 out of 10. Denies vomiting blood, coughing up blood, bloody stool or dark stool. No fever or chills. Associated Symptoms: Reports nausea and vomiting; Denies change in bowel habits, change in stool character, coffee ground emesis, constipation, excessive flatus, heartburn, hematochezia and hematemesis Review of Systems General: Reports: 10 or more systems reviewed and unremarkable except in HPI and below GI: Reports: abdominal pain, nausea and vomiting; Denies: hematemesis, coffee ground emesis, dysphagia, heartburn, constipation, excessive flatus, change in bowel habits, rectal swelling, rectal itching, change in stool character or hematochezia PFS ED PFSH: Medical History Anxiety Cannabis abuse The following information retrieved/edited from Behavior Assessment Report completed on 02/18/22: Donna meets the diagnostic criteria for F12.10 Cannabis Use Disorder, mild in that she reports: not managing to do what you should at work, home, or school because of substance use; continuing to use, even when it causes problems in relationships; continuing to use, even when you know you have a physical or psychological problem that could have been caused or made worse by the substance; and needing more of the substance to get the effect you want (tolerance). No pertinent family history Panic attack Psychiatric care Family History Denies family history of Colon cancer Ovarian cancer Diabetes Heart disease Breast cancer Hypertension Uterine cancer Thyroid disease Stroke Physical Exam Const: COMMON NORMALS: patient oriented x3 Chest: COMMONS NORMALS: normal inspection of the chest, normal palpation of entire chest wall, normal inspection of the breasts and normal palpation of the breasts Breast/axilla inspection: Yes normal inspection of the breasts BREAST/AXILLA PALPATION: Yes normal palpation of the breasts GI: COMMON NORMALS: Soft to palpation; negative for No hepatosplenomegaly present INSPECTION: No Abdominal wall edema, No Anasarca, No visible pulsation, No visible peristalsis and No caput medusae present AUSCULTATION: Yes normoactive bowel sounds PALPATION: Yes Soft to palpation, Yes Tenderness to palpation present (GI), No Guarding due to palpation present (GI), No No hepatosplenomegaly present and No Hepatosplenomegaly present PERCUSSION: normal to percussion Extremity: COMMON NORMALS: normal to inspection Neuro: COMMON NORMALS: patient oriented x3 Psych: COMMON NORMALS: mental status grossly normal, cooperative, speech normal and activity/motor behavior normal; negative for normal affect (Flat affect) SPEECH: Yes normal speech Course Vital Signs: Vital signs: Vital Signs Temperature 98.5 F 10/30/22 19:39 Pulse Rate 61 10/30/22 21:30 Respiratory Rate 16 10/30/22 21:30 Blood Pressure 112/69 10/30/22 21:30 Pulse Oximetry 98 10/30/22 21:30 Oxygen Delivery Me thod Room Air 10/30/22 21:30 MDM - Abdominal Pain Medical Decision Making Patient monitor area very closely. Was given IV fluids, nausea medication. Pepcid IV. Upon reassessment patient reveals that she is feeling better. Patient was given oral fluids without vomiting. I personally reviewed the medical records including discharge summary and HPI. CT scan that was done recently also reviewed. Differential Diagnosis Likely abdominal pain, acute appendicitis, calculus of kidney, constipation, diverticulitis, pancreatitis and small bowel obstruction Medical Records I reviewed the patient's medical records. Lab Data 10/30/22 21:26 10/30/22 21: Labs/Radiology: Laboratory Results WBC 10.5 10^3/uL (4.0-10.0) H 10/30/22 21: RBC 3.88 10^6/uL (4.1-5.3) L 10/30/22: Hgb 9.8 g/dL (11.5-15.3) L 10/30/22 21: Hct 31.4 % (37.0-47.0) L 10/30/22 21: MCV 80.9 fl (81-99) L 10/30/22 21: MCH 25.3 pg (28.0-34.0) L 10/30/22 21: MCHC 31.2 g/dL (30.0-36.0) 10/30/22: RDW 15.4 % (12.1-15.1) H 10/30/22 21: Plt Count 453 10^3/cmm (130-400) H D 10/30/22 21: MPV 9.8 fL (7.4-10.4) 10/30/22 21: Neut % (Auto) 68.4 % 10/30/22 21: Lymph % (Auto) 20.2 % 10/30/22 21: [place] % (Auto) 7.2 % 10/30/22: Eos % (Auto) 2.9 % 10/30/22: Baso % (Auto) 1.0 % 10/30/22: Neut # (Auto) 7.20 10^3/uL (1.8-7.7) 10/30/22: Lymph # (Auto) 2.1 10^3/uL (0.8-4.8) 10/30/22: [place] # (Auto) 0.8 10^3/uL (0.2-0.9) 10/30/22: Eos # (Auto) 0.3 10^3/uL (0.0-0.8) 10/30/22: Baso # (Auto) 0.1 10^3/uL (0.0-0.1) 10/30/22: Nucleated RBC % (auto) 0 % 10/30/22: Nucleated RBCs # 0.0 /100WBC 10/30/22 21: Sodium 139 mmol/L (136-145) 10/30/22 21: Potassium 3.3 mmol/L (3.5-5.1) L 10/30/22: Chloride 103 mmol/L (98-107) 10/30/22 21: Carbon Dioxide 23 mmol/L (22-29) 10/30/22: Anion Gap 16.3 (5-19) 10/30/22: BUN 5 mg/dL (6-20) L 06/16/23 21:26 Creatinine 0.5 mg/dL (0.5-0.9) 10/30/22 21:26 GFR Calculation 152.9 mL/min (90-130) H 10/30/22 21:26 Glucose 93 mg/dL (65-115) 10/30/22 21:26 Calculated Osmolality 285 mOsm/kg (285-295) 10/30/22 21:26 Calcium 8.9 mg/dL (8.5-10.5) 10/30/22 21:26 Total Bilirubin 0.2 mg/dL (0.15-1.2) 10/30/22 21:26 AST 14 U/L (0-32) 10/30/22 21:26 ALT 9 U/L (0-33) 10/30/22 21:26 Alkaline Phosphatase 69 U/L (35-105) 10/30/22 21:26 Total Protein 7.2 g/dL (6.6-8.7) 10/30/22 21:26 Albumin 3.8 g/dL (3.5-5.2) 10/30/22 21:26 Globulin 3.4 g/dL (1.3-4.6) 10/30/22 21:26 Lipase 14 U/L (13-60) 10/30/22 21:26 Discharge Plan Discharge Patient Disposition: Home Clinical Impression: Gastroenteritis, Abdominal pain, Nausea & vomiting Condition: Stable Prescriptions: New Reglan 10 mg tablet 10 mg PO Q6H Qty: 20 0RF promethazine 25 mg suppository 25 mg UT Q6H PRN (Reason: nausea and vomiting) Qty: 12 0RF No Action ciprofloxacin HCl 500 mg tablet 500 mg PO Q12H Qty: 10 0RF metronidazole 500 mg tablet 500 mg PO Q8H 5 Days Qty: 15 0RF oxycodone-acetaminophen 5-325 mg tablet 1 tab PO Q8H PRN (Reason: pain) Qty: 10 0RF Discharge Orders: Discharge ED (Routine); Ordered 10/30/22 Ordered By: Malia Ritchie Referrals: Sarath Ramos MD [Primary Care Provider] - Discharge Diet: Advance as tolerated and Clear Liquid Discharge Activity: Resume usual activity Patient Instructions: Abdominal Pain (ED), Opioid Safety, Pain Management Coding Level of Care Code ED Senior Software Test Engineer for Chg Fwd
[2022-10-30 22:25] LABS: Basophils # 0.1 10^3/uL (0.0-0.1); Eosinophils # 0.3 10^3/uL (0.0-0.8); Eosinophils % 2.9 %; Hematocrit 31.4 % (37.0-47.0); Hemoglobin 9.8 g/dL (11.5-15.3); Lymphocytes # 2.1 10^3/uL (0.8-4.8); Lymphocytes % 20.2 %; Mean Corpuscular HGB Conc 31.2 g/dL (30.0-36.0); Mean Corpuscular Hemoglobin 25.3 pg (28.0-34.0); Mean Corpuscular Volume 80.9 fl (81-99); Mean Platelet Volume 9.8 fL (7.4-10.4); Monocytes # 0.8 10^3/uL (0.2-0.9); Monocytes % 7.2 %; Neutrophils % 68.4 %; Nucleated Red Blood Cells % 0 %; Platelet Count 453 10^3/cmm (130-400); Red Blood Count 3.88 10^6/uL (4.1-5.3); Red Cell Distribution Width 15.4 % (12.1-15.1); White Blood Count 10.5 10^3/uL (4.0-10.0)
[2022-10-30 22:30] VITALS: BP 123/76; PULSE 55; O2SAT 98
[2022-10-30] MEDS: sodium chloride 0.9% 1,000 ML 999 ML IV (22:35)
[2022-10-30] MEDS: famotidine 20 mg/2 mL INJ IVP (22:36)
[2022-10-30] MEDS: metoclopramide 5 mg/mL SDV 2 mL 10 MG IVP (22:38)
[2022-10-30 23:00] VITALS: BP 135/85; PULSE 56; O2SAT 98
[2022-10-30 23:03] LABS: Alanine Aminotransferase 9 U/L (0-33); Albumin Level 3.8 g/dL (3.5-5.2); Alkaline Phosphatase 69 U/L (35-105); Anion Gap 16.3 (5-19); Aspartate Amino Transferase 14 U/L (0-32); Blood Urea Nitrogen 5 mg/dL (6-20); Calcium 8.9 mg/dL (8.5-10.5); Carbon Dioxide 23 mmol/L (22-29); Chloride 103 mmol/L (98-107); Globulin 3.4 g/dL (1.3-4.6); Glomerular Filtration Rate 152.9 mL/min (90-130); Glucose 93 mg/dL (65-115); Lipase 14 U/L (13-60); Osmolality Calculated 285 mOsm/kg (285-295); Potassium 3.3 mmol/L (3.5-5.1); Sodium 139 mmol/L (136-145); Total Bilirubin 0.2 mg/dL (0.15-1.2); Total Protein 7.2 g/dL (6.6-8.7)
[2022-10-30 23:30] VITALS: BP 132/78; PULSE 77; O2SAT 98
[2022-10-31 00:01] VITALS: BP 115/90; PULSE 72; RESP 16; O2SAT 100
== END 2022-10-31 00:03 | disposition home or self-care (01) ==
PROVIDERS: Emergency Provider Family Medicine; PCP Family Medicine
DX: K52.9 Noninfective gastroenteritis and colitis, unspecified (principal)
CPT/HCPCS: 80053; 83690; 85025; 96374; 96375; 99284; J2765; J3490; J7030

== ENCOUNTER 2022-11-03 08:04 | Emergency (ER) | payer MEDICAID, SELFPAY ==
[2022-11-03 08:22] VITALS: BP 138/97; PULSE 82; RESP 14; TEMP 36.8; O2SAT 100; BMI 19.3
[2022-11-03 08:25] VITALS: BP 138/97; PULSE 82; O2SAT 100
--- NOTE | 2022-11-03 08:29 | W.ED.ABDPA2 ---
Documented by User: LAURA Salmon 11/04/22 07:10 HPI - Abdominal Pain General: Chief Complaint: Abdominal Pain Stated Complaint: abd pain Time Seen by Provider: 11/03/22 08:14 History of Present Illness: Patient is a 22-year-old female comes to the ED with abdominal pain, nausea and vomiting. Patient has been seen here in the ED for same complaint multiple times and her most recent visits were October 15, October 29 and October 30. Patient was admitted on October 29 and discharged from hospital the next day and she is currently getting set up with a GI specialist at [facility] for her hepatomegaly a. She has a history of cannabinoid hyperemesis syndrome and states that she was a daily marijuana user but has not used any marijuana over the past week. She reports having 7 out of 10 pain and right side of her abdomen. She endorses having nausea and vomiting. She only gets temporary relief when she sits under a hot shower. Patient endorses some constipation over the past couple days but she took a stool softener yesterday and she was able to have a BM. Denies any fevers, dysuria or hematuria. Associated Symptoms: Reports constipation, nausea and vomiting; Denies chills, diarrhea, dysuria, fever(s), hematochezia and hematuria Review of Systems Const: Denies: fever(s), chills or fatigue Eyes: Denies: change in vision or eye discomfort ENMT: Denies: throat pain, odynophagia, nasal discharge or nasal congestion Card: Denies: chest pain, palpitations, edema, swelling of feet/ankles, dyspnea on exertion or orthopnea Resp: Denies: dyspnea, productive cough or non-productive cough GI: Reports: abdominal pain, nausea, vomiting and constipation; Denies: diarrhea or hematochezia : Denies: flank pain, dysuria or hematuria Musc: Denies: neck pain, back pain or extremity swelling Skin/Breast: Denies: rash or new lesions Neuro: Denies: headache(s), numbness in extremities or weakness in extremities PFS ED PFSH: Medical History Adjustment disorder Anxiety Cannabis abuse The following information retrieved/edited from Behavior Assessment Report completed on 02/18/22: Donna meets the diagnostic criteria for F12.10 Cannabis Use Disorder, mild in that she reports: not managing to do what you should at work, home, or school because of substance use; continuing to use, even when it causes problems in relationships; continuing to use, even when you know you have a physical or psychological problem that could have been caused or made worse by the substance; and needing more of the substance to get the effect you want (tolerance). Colitis Enterocolitis Generalized anxiety disorder The following information retrieved/edited from Behavior Assessment Report completed on 02/18/22: Donna meets the diagnostic criteria for Generalized Anxiety Disorder in that she reports: excessive anxiety and worry, occurring more days than not for at least six months, about a number of events or activities; difficult to control the worry; the anxiety and worry are associated with restlessness or feeling keyed up or on edge; being easily fatigued; difficulty concentrating or mind going blank; irritability; sleep disturbances. The anxiety, worry, and physical symptoms cause clinically significant distress or impairment in social, occupational, or other important areas of functioning. Major depressive disorder, recurrent episode, unspecified The following information retrieved/edited from Behavior Assessment Report completed on 02/18/22: Donna meets the diagnostic criteria for Major Depressive Disorder, recurrent, moderate in that she reports: depressed mood most of the day, nearly every day, as indicated by either subjective report or observation made by others; markedly diminished interest or pleasure in all, or almost all, activities most of the day, nearly every day; decrease or increase in appetite nearly every day; insomnia or hypersomnia nearly every day; psychomotor agitation or retardation nearly every day; fatigue or loss of energy nearly every day; feelings of worthlessness or excessive or inappropriate guilt nearly every day; recurrent thoughts of , recurrent suicidal ideation without a specific plan, or a suicide attempt or a specific plan for committing suicide. The symptoms cause clinically significant distress or impairment in social, occupational, or other substance or to another medical condition. No pertinent family history Panic attack Psychiatric care Family History Denies family history of Colon cancer Ovarian cancer Diabetes Heart disease Breast cancer Hypertension Uterine cancer Thyroid disease Stroke Physical Exam Const: COMMON NORMALS: patient oriented x3 and alert GENERAL APPEARANCE: anxious OTHER: Patient is tearful and crying while giving history. HENMT: COMMON NORMALS: normocephalic HEAD & SCALP: normocephalic MOUTH: Normal oral and palatal mucosa present THROAT: posterior oropharynx normal and uvula midline Neck/C-Spine: COMMON NORMALS: supple GENERAL: Yes normal visual inspection Resp: COMMON NORMALS: normal respiratory effort, No retractions, No use of accessory muscles and clear to auscultation bilaterally AUSCULTATION: clear to auscultation bilaterally Cardio: COMMON NORMALS: regular rate, regular rhythm, S1 normal heart sound present, S2 normal heart sound present, No gallops present (Cardio), No clicks present (Cardio), No murmurs present (Cardio) and Peripheral pulses 2+ throughout RATE: regular rate RHYTHM: regular rhythm HEART SOUNDS: S1 normal heart sound present and S2 normal heart sound present PERIPHERAL PULSES: Peripheral pulses 2+ throughout GI: COMMON NORMALS: Normal to inspection, nondistended, normoactive bowel sounds present, Soft to palpation and no masses PALPATION: Yes Soft to palpation and Yes Tenderness to palpation present (GI) Details: RLQ and RUQ : COMMON NORMALS: Yes no CVA tenderness BLADDER/KIDNEY EXAM: Yes no CVA tenderness Back/Pelvis: COMMON NORMALS: no CVA tenderness Extremity: COMMON NORMALS: normal to inspection Neuro: COMMON NORMALS: patient oriented x3 SENSORIUM/ORIENTATION: Yes alert GAIT: Yes Normal gait present Skin: GENERAL SKIN EXAM: dry skin Course Vital Signs: Vital signs: Vital Signs Temperature 98.2 F 11/03/22 08:22 Pulse Rate 70 11/03/22 10:20 Respiratory Rate 14 11/03/22 10:20 Blood Pressure 136/80 11/03/22 10:20 Pulse Oximetry 100 11/03/22 10:20 Oxygen Delivery Me thod Room Air 11/03/22 08:22 MDM - Abdominal Pain Medical Decision Making Patient is a 22-year-old female comes to the ED with abdominal pain, nausea and vomiting. Patient has been seen here in the ED for same complaint multiple times and her most recent visits were October 15, October 29 and October 30. Patient was admitted on October 29 and discharged from hospital the next day and she is currently getting set up with a GI specialist at [facility] for her hepatomegaly a. She has a history of cannabinoid hyperemesis syndrome and states that she was a daily marijuana user but has not used any marijuana over the past week. She reports having 7 out of 10 pain and right side of her abdomen. She endorses having nausea and vomiting. She only gets temporary relief when she sits under a hot shower. Patient endorses some constipation over the past couple days but she took a stool softener yesterday and she was able to have a BM. Denies any fevers, dysuria or hematuria. Vitals are stable. Patient is tearful in the crying during exam. She is very anxious about her health. She has some mild generalized tenderness on the right side of her abdomen. Patient's labs are all unremarkable today. KUB showed no acute change. I reviewed her CT of abdomen pelvis from 5 days ago back when patient was put on observation in the hospital and it just showed some inflammation in small bowel loops. Patient was given 1 L of IV fluids, nausea and pain meds and her symptoms improved and her nausea vomiting resolved. She is able to tolerate p.o. fluids. She was stable for discharge home and I gave her the contact information for the transition advisor that she was referred to after DC from hospital on October 30- Dr. Galicia at [facility]. She was sent home with a prescription for tramadol and nausea med and told to follow-up with your PCP within the next week and to follow-up with GI specialist at her next scheduled appointment. Patient understood and agreed with plan. Lab Data I reviewed the patient's lab results. 11/03/22 08:35 11/03/22 08:35 Labs/Radiology: Radiology Impressions KUB X-Ray 11/03/22 08:35 IMPRESSION: Unremarkable no acute change. Laboratory Results WBC 11.0 10^3/uL (4.0-10.0) H 11/03/22 08:35 RBC 4.51 10^6/uL (4.1-5.3) 11/03/22 08:35 Hgb 11.4 g/dL (11.5-15.3) L 11/03/22 08:35 Hct 37.3 % (37.0-47.0) 11/03/22 08:35 MCV 82.7 fl (81-99) 11/03/22 08:35 MCH 25.3 pg (28.0-34.0) L 11/03/22 08:35 MCHC 30.6 g/dL (30.0-36.0) 11/03/22 08:35 RDW 15.8 % (12.1-15.1) H 11/03/22 08:35 Plt Count 471 10^3/cmm (130-400) H 11/03/22 08:35 MPV 9.5 fL (7.4-10.4) 11/03/22 08:35 Neut % (Auto) 63.6 % 11/03/22 08:35 Lymph % (Auto) 21.5 % 11/03/22 08:35 Coffee % (Auto) 7.5 % 11/03/22 08:35 Eos % (Auto) 5.9 % 11/03/22 08:35 Baso % (Auto) 1.2 % 11/03/22 08:35 Neut # (Auto) 6.97 10^3/uL (1.8-7.7) 11/03/22 08:35 Lymph # (Auto) 2.4 10^3/uL (0.8-4.8) 11/03/22 08:35 Coffee # (Auto) 0.8 10^3/uL (0.2-0.9) 11/03/22 08:35 Eos # (Auto) 0.7 10^3/uL (0.0-0.8) 11/03/22 08:35 Baso # (Auto) 0.1 10^3/uL (0.0-0.1) 11/03/22 08:35 Nucleated RBC % (auto) 0 % 11/03/22 08:35 Nucleated RBCs # 0.0 /100WBC 11/03/22 08:35 Sodium 138 mmol/L (136-145) 11/03/22 08:35 Potassium 3.9 mmol/L (3.5-5.1) 11/03/22 08:35 Chloride 101 mmol/L (98-107) 11/03/22 08:35 Carbon Dioxide 21 mmol/L (22-29) L 11/03/22 08:35 Anion Gap 19.9 (5-19) H 11/03/22 08:35 BUN 6 mg/dL (6-20) 11/03/22 08:35 Creatinine 0.7 mg/dL (0.5-0.9) 11/03/22 08:35 GFR Calculation 103.7 mL/min (90-130) 11/03/22 08:35 Glucose 80 mg/dL (65-115) 11/03/22 08:35 Calculated Osmolality 283 mOsm/kg (285-295) L 11/03/22 08:35 Calcium 9.1 mg/dL (8.5-10.5) 11/03/22 08:35 Total Bilirubin 0.3 mg/dL (0.15-1.2) 11/03/22 08:35 AST 22 U/L (0-32) 11/03/22 08:35 ALT 15 U/L (0-33) 11/03/22 08:35 Alkaline Phosphatase 68 U/L (35-105) 11/03/22 08:35 Total Protein 7.7 g/dL (6.6-8.7) 11/03/22 08:35 Albumin 3.9 g/dL (3.5-5.2) 11/03/22 08:35 Globulin 3.8 g/dL (1.3-4.6) 11/03/22 08:35 Lipase 13 U/L (13-60) 11/03/22 08:35 HCG, Qual Negative (Negative) 11/03/22 08:35 Discharge Plan Discharge Patient Disposition: Home Clinical Impression: Abdominal pain Qualifiers: Abdominal location: generalized Qualified Code(s): R10.84 - Generalized abdominal pain Nausea and vomiting Qualifiers: Vomiting type: unspecified Qualified Code(s): R11.2 - Nausea with vomiting, unspecified Condition: Stable Prescriptions: New Reglan 10 mg tablet 10 mg PO Q6H PRN (Reason: nausea and vomiting) Qty: 20 0RF No Action ciprofloxacin HCl 500 mg tablet 500 mg PO Q12H Qty: 10 0RF oxycodone-acetaminophen 5-325 mg tablet 1 tab PO Q8H PRN (Reason: pain) Qty: 10 0RF Reglan 10 mg tablet 10 mg PO Q6H Qty: 20 0RF promethazine 25 mg suppository 25 mg SC Q6H PRN (Reason: nausea and vomiting) Qty: 12 0RF Discharge Orders: Discharge ED (Routine); Ordered 11/03/22 Ordered By: Sarath Andrade Referrals: Sarath Ramos MD [Primary Care Provider] - Discharge Diet: Advance as tolerated and Clear Liquid Discharge Activity: Increase activity as tolerated Patient Instructions: Abdominal Pain (ED), Opioid Safety Activity Restrictions/Additional Instructions: Follow-up with medical provider as directed. You were referred to Dr. Galicia the transition advisor at [facility]. Phone number is [phone]. Take medications as prescribed. Return to the ER or your medical provider if condition worsens. Please read and understand discharge instructions. Thank you for choosing [facility] for your healthcare needs today. Please realize this is an emergency room and that we are providing you with a medical screening exam and this may not be complete and all inclusive of all the testing and or work up that you may need to determine your ailment or severity of your illness. It is very important that you follow up as instructed or that you return to the Emergency Department should you have concerns or if your condition changes or worsens in any way. Stand Alone Forms: Work/School Release Coding Level of Care Code ED Java Web User Interface Developer for [employer] Documented by User: James Prakash DO 11/05/22 05:48 HPI - Abdominal Pain General: Chief Complaint: Abdominal Pain Stated Complaint: abd pain Time Seen by Provider: 11/03/22 08:14 [facility] ED PFSH: Medical History Adjustment disorder Anxiety Cannabis abuse The following information retrieved/edited from Behavior Assessment Report completed on 02/18/22: Donna meets the diagnostic criteria for F12.10 Cannabis Use Disorder, mild in that she reports: not managing to do what you should at work, home, or school because of substance use; continuing to use, even when it causes problems in relationships; continuing to use, even when you know you have a physical or psychological problem that could have been caused or made worse by the substance; and needing more of the substance to get the effect you want (tolerance). Colitis Enterocolitis Generalized anxiety disorder The following information retrieved/edited from Behavior Assessment Report completed on 02/18/22: Donna meets the diagnostic criteria for Generalized Anxiety Disorder in that she reports: excessive anxiety and worry, occurring more days than not for at least six months, about a number of events or activities; difficult to control the worry; the anxiety and worry are associated with restlessness or feeling keyed up or on edge; being easily fatigued; difficulty concentrating or mind going blank; irritability; sleep disturbances. The anxiety, worry, and physical symptoms cause clinically significant distress or impairment in social, occupational, or other important areas of functioning. Major depressive disorder, recurrent episode, unspecified The following information retrieved/edited from Behavior Assessment Report completed on 02/18/22: Donna meets the diagnostic criteria for Major Depressive Disorder, recurrent, moderate in that she reports: depressed mood most of the day, nearly every day, as indicated by either subjective report or observation made by others; markedly diminished interest or pleasure in all, or almost all, activities most of the day, nearly every day; decrease or increase in appetite nearly every day; insomnia or hypersomnia nearly every day; psychomotor agitation or retardation nearly every day; fatigue or loss of energy nearly every day; feelings of worthlessness or excessive or inappropriate guilt nearly every day; recurrent thoughts of , recurrent suicidal ideation without a specific plan, or a suicide attempt or a specific plan for committing suicide. The symptoms cause clinically significant distress or impairment in social, occupational, or other substance or to another medical condition. No pertinent family history Panic attack Psychiatric care Family History Denies family history of Colon cancer Ovarian cancer Diabetes Heart disease Breast cancer Hypertension Uterine cancer Thyroid disease Stroke Course Vital Signs: Vital signs: Vital Signs Temperature 98.2 F 11/03/22 08:22 Pulse Rate 70 11/03/22 10:20 Respiratory Rate 14 11/03/22 10:20 Blood Pressure 136/80 11/03/22 10:20 Pulse Oximetry 100 11/03/22 10:20 Oxygen Delivery Me thod Room Air 11/03/22 08:22 MDM - Abdominal Pain Medical Decision Making Patient is a 22-year-old female comes to the ED with abdominal pain, nausea and vomiting. Patient has been seen here in the ED for same complaint multiple times and her most recent visits were October 15, October 29 and October 30. Patient was admitted on October 29 and discharged from hospital the next day and she is currently getting set up with a GI specialist at [facility] for her hepatomegaly a. She has a history of cannabinoid hyperemesis syndrome and states that she was a daily marijuana user but has not used any marijuana over the past week. She reports having 7 out of 10 pain and right side of her abdomen. She endorses having nausea and vomiting. She only gets temporary relief when she sits under a hot shower. Patient endorses some constipation over the past couple days but she took a stool softener yesterday and she was able to have a BM. Denies any fevers, dysuria or hematuria. Vitals are stable. Patient is tearful in the crying during exam. She is very anxious about her health. She has some mild generalized tenderness on the right side of her abdomen. Patient's labs are all unremarkable today. KUB showed no acute change. I reviewed her CT of abdomen pelvis from 5 days ago back when patient was put on observation in the hospital and it just showed some inflammation in small bowel loops. Patient was given 1 L of IV fluids, nausea and pain meds and her symptoms improved and her nausea vomiting resolved. She is able to tolerate p.o. fluids. She was stable for discharge home and I gave her the contact information for the transition advisor that she was referred to after DC from hospital on October 30- Dr. Galicia at [facility]. She was sent home with a prescription for tramadol and nausea med and told to follow-up with your PCP within the next week and to follow-up with GI specialist at her next scheduled appointment. Patient understood and agreed with plan. Chart reviewed and patient discussed with midlevel. Agree with assessment and plan. Lab Data 11/03/22 08:35 11/03/22 08:35 Labs/Radiology: Radiology Impressions KUB X-Ray 11/03/22 08:35 IMPRESSION: Unremarkable no acute change. Laboratory Results WBC 11.0 10^3/uL (4.0-10.0) H 11/03/22 08:35 RBC 4.51 10^6/uL (4.1-5.3) 11/03/22 08:35 Hgb 11.4 g/dL (11.5-15.3) L 11/03/22 08:35 Hct 37.3 % (37.0-47.0) 11/03/22 08:35 MCV 82.7 fl (81-99) 11/03/22 08:35 MCH 25.3 pg (28.0-34.0) L 11/03/22 08:35 MCHC 30.6 g/dL (30.0-36.0) 11/03/22 08:35 RDW 15.8 % (12.1-15.1) H 11/03/22 08:35 Plt Count 471 10^3/cmm (130-400) H 11/03/22 08:35 MPV 9.5 fL (7.4-10.4) 11/03/22 08:35 Neut % (Auto) 63.6 % 11/03/22 08:35 Lymph % (Auto) 21.5 % 11/03/22 08:35 Coffee % (Auto) 7.5 % 11/03/22 08:35 Eos % (Auto) 5.9 % 11/03/22 08:35 Baso % (Auto) 1.2 % 11/03/22 08:35 Neut # (Auto) 6.97 10^3/uL (1.8-7.7) 11/03/22 08:35 Lymph # (Auto) 2.4 10^3/uL (0.8-4.8) 11/03/22 08:35 Coffee # (Auto) 0.8 10^3/uL (0.2-0.9) 11/03/22 08:35 Eos # (Auto) 0.7 10^3/uL (0.0-0.8) 11/03/22 08:35 Baso # (Auto) 0.1 10^3/uL (0.0-0.1) 11/03/22 08:35 Nucleated RBC % (auto) 0 % 11/03/22 08:35 Nucleated RBCs # 0.0 /100WBC 11/03/22 08:35 Sodium 138 mmol/L (136-145) 11/03/22 08:35 Potassium 3.9 mmol/L (3.5-5.1) 11/03/22 08:35 Chloride 101 mmol/L (98-107) 11/03/22 08:35 Carbon Dioxide 21 mmol/L (22-29) L 11/03/22 08:35 Anion Gap 19.9 (5-19) H 11/03/22 08:35 BUN 6 mg/dL (6-20) 11/03/22 08:35 Creatinine 0.7 mg/dL (0.5-0.9) 11/03/22 08:35 GFR Calculation 103.7 mL/min (90-130) 11/03/22 08:35 Glucose 80 mg/dL (65-115) 11/03/22 08:35 Calculated Osmolality 283 mOsm/kg (285-295) L 11/03/22 08:35 Calcium 9.1 mg/dL (8.5-10.5) 11/03/22 08:35 Total Bilirubin 0.3 mg/dL (0.15-1.2) 11/03/22 08:35 AST 22 U/L (0-32) 11/03/22 08:35 ALT 15 U/L (0-33) 11/03/22 08:35 Alkaline Phosphatase 68 U/L (35-105) 11/03/22 08:35 Total Protein 7.7 g/dL (6.6-8.7) 11/03/22 08:35 Albumin 3.9 g/dL (3.5-5.2) 11/03/22 08:35 Globulin 3.8 g/dL (1.3-4.6) 11/03/22 08:35 Lipase 13 U/L (13-60) 11/03/22 08:35 HCG, Qual Negative (Negative) 11/03/22 08:35 Discharge Plan Discharge Patient Disposition: Home Clinical Impression: Abdominal pain Qualifiers: Abdominal location: generalized Qualified Code(s): R10.84 - Generalized abdominal pain Nausea and vomiting Qualifiers: Vomiting type: unspecified Qualified Code(s): R11.2 - Nausea with vomiting, unspecified Condition: Stable Prescriptions: New Reglan 10 mg tablet 10 mg PO Q6H PRN (Reason: nausea and vomiting) Qty: 20 0RF No Action ciprofloxacin HCl 500 mg tablet 500 mg PO Q12H Qty: 10 0RF oxycodone-acetaminophen 5-325 mg tablet 1 tab PO Q8H PRN (Reason: pain) Qty: 10 0RF Reglan 10 mg tablet 10 mg PO Q6H Qty: 20 0RF promethazine 25 mg suppository 25 mg SC Q6H PRN (Reason: nausea and vomiting) Qty: 12 0RF Discharge Orders: Discharge ED (Routine); Ordered 11/03/22 Ordered By: Sarath Gray Referrals: Sarath Ramos MD [Primary Care Provider] - Discharge Diet: Advance as tolerated and Clear Liquid Discharge Activity: Increase activity as tolerated Patient Instructions: Abdominal Pain (ED), Opioid Safety Activity Restrictions/Additional Instructions: Follow-up with medical provider as directed. You were referred to Dr. Galicia the transition advisor at [facility]. Phone number is [phone]. Take medications as prescribed. Return to the ER or your medical provider if condition worsens. Please read and understand discharge instructions. Thank you for choosing [facility] for your healthcare needs today. Please realize this is an emergency room and that we are providing you with a medical screening exam and this may not be complete and all inclusive of all the testing and or work up that you may need to determine your ailment or severity of your illness. It is very important that you follow up as instructed or that you return to the Emergency Department should you have concerns or if your condition changes or worsens in any way. 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
--- NOTE | 2022-11-03 08:35 | XR_ITS ---
WS: [id number] EXAMINATION: XR KUB portable [id number] REASON FOR EXAM: constipation and abdominal pain COMPARISON: None available. ORDER DATE: 11/03/2022 8:43 AM FINDINGS: There is a nonspecific bowel gas pattern. Some gas is outlining a portion of the colon and distal ant rum of the stomach. There is also gas in the rectum. No pathologic abdominal calcifications. XR/XR KUB portable [id number] IMPRESSION: Unremarkable no acute change.
[2022-11-03 08:42] VITALS: RESP 16; O2SAT 99
[2022-11-03] MEDS: morphine 4 mg/mL SDV 1 mL IVP (08:42)
[2022-11-03 08:43] LABS: Basophils # 0.1 10^3/uL (0.0-0.1); Basophils % 1.2 %; Eosinophils # 0.7 10^3/uL (0.0-0.8); Eosinophils % 5.9 %; Hematocrit 37.3 % (37.0-47.0); Hemoglobin 11.4 g/dL (11.5-15.3); Lymphocytes # 2.4 10^3/uL (0.8-4.8); Lymphocytes % 21.5 %; Mean Corpuscular HGB Conc 30.6 g/dL (30.0-36.0); Mean Corpuscular Hemoglobin 25.3 pg (28.0-34.0); Mean Corpuscular Volume 82.7 fl (81-99); Mean Platelet Volume 9.5 fL (7.4-10.4); Monocytes # 0.8 10^3/uL (0.2-0.9); Monocytes % 7.5 %; Neutrophils # 6.97 10^3/uL (1.8-7.7); Neutrophils % 63.6 %; Nucleated Red Blood Cells % 0 %; Platelet Count 471 10^3/cmm (130-400); Red Blood Count 4.51 10^6/uL (4.1-5.3); Red Cell Distribution Width 15.8 % (12.1-15.1)
[2022-11-03] MEDS: metoclopramide 5 mg/mL SDV 2 mL 10 MG IVP (08:43)
[2022-11-03] MEDS: sodium chloride 0.9% 1,000 ML 999 ML IV (08:44)
[2022-11-03 09:05] LABS: Alanine Aminotransferase 15 U/L (0-33); Albumin Level 3.9 g/dL (3.5-5.2); Alkaline Phosphatase 68 U/L (35-105); Aspartate Amino Transferase 22 U/L (0-32); Blood Urea Nitrogen 6 mg/dL (6-20); Calcium 9.1 mg/dL (8.5-10.5); Carbon Dioxide 21 mmol/L (22-29); Chloride 101 mmol/L (98-107); Globulin 3.8 g/dL (1.3-4.6); Glomerular Filtration Rate 103.7 mL/min (90-130); Glucose 80 mg/dL (65-115); Lipase 13 U/L (13-60); Osmolality Calculated 283 mOsm/kg (285-295); Sodium 138 mmol/L (136-145); Total Bilirubin 0.3 mg/dL (0.15-1.2); Total Protein 7.7 g/dL (6.6-8.7)
[2022-11-03 09:07] LABS: Anion Gap 19.9 (5-19); HCG, Serum Qual Negative (Negative); Potassium 3.9 mmol/L (3.5-5.1)
[2022-11-03 09:25] VITALS: BP 114/77; PULSE 57; O2SAT 99
[2022-11-03 10:20] VITALS: BP 136/80; PULSE 70; RESP 14; O2SAT 100
== END 2022-11-03 10:21 | disposition home or self-care (01) ==
PROVIDERS: Emergency Provider Physician Assistant; PCP Family Medicine
DX: R10.84 Generalized abdominal pain (principal); R11.2 Nausea with vomiting, unspecified
CPT/HCPCS: 74018; 80053; 83690; 84703; 85025; 96361; 96374; 96375; 99284; J2270; J2765; J7030

== ENCOUNTER → 2023-08-09 14:25 | Outpatient (BNVA) | payer MEDICAID, SELFPAY | PROVIDERS: PCP Family Medicine; Visit Provider Family Medicine | DX: R10.11 Right upper quadrant pain (principal); G89.29 Other chronic pain; R53.81 Other malaise; R53.83 Other fatigue; Z51.81 Encounter for therapeutic drug level monitoring | CPT/HCPCS: 80053; 83630; 84439; 84443; 84481; 85025; 86141; 87045; 87177; 87209; 87427; 87449 ==

== ENCOUNTER 2023-08-25 08:11 | Outpatient (CLI) | payer MEDICAID, SELFPAY ==
--- NOTE | 2023-08-25 08:15 | US_ITS ---
WS: [id number] RIGHT UPPER QUADRANT ULTRASOUND HISTORY: RUQ pain COMPARISON: None available. Liver: 19.2 cm in length. Mildly enlarged liver. No mass. Normal portal vein. Portal Vein: Normal hepatopetal flow with monophasic waveform. Gallbladder: Normally distended gallbladder with no stones or wall thickening. CBD: 0.3 cm Pancreas: Normal size and echogenicity. Right kidney: 11.6 cm in length. Normal size and echogenicity. No hydronephrosis or mass. Aorta and IVC: Unremarkable abdominal aorta and IVC. No ascites. IMPRESSION: Mild hepatomegaly. Otherwise negative.
== END 2023-08-25 08:12 | disposition home or self-care (01) ==
LOC: RAD 08:12
PROVIDERS: PCP Family Medicine; Visit Provider Family Medicine
DX: R10.11 Right upper quadrant pain (principal); G89.29 Other chronic pain; R16.0 Hepatomegaly, not elsewhere classified
CPT/HCPCS: 76705

== ENCOUNTER → 2024-06-24 17:57 | Outpatient (BNVA) | payer MEDICAID, SELFPAY | PROVIDERS: PCP Family Medicine | DX: J02.9 Acute pharyngitis, unspecified (principal); R50.9 Fever, unspecified | CPT/HCPCS: 87071; 87400; 87880 ==

== ENCOUNTER 2025-04-20 08:03 | Emergency (ER) | payer MEDICAID, SELFPAY ==
[2025-04-20 08:09] VITALS: BP 113/78; PULSE 81; RESP 17; TEMP 36.7; O2SAT 100; BMI 18.9
--- NOTE | 2025-04-20 08:14 | CT_ITS ---
WS: [id number] CT ABDOMEN PELVIS TECHNIQUE: Contrast-enhanced CT of the abdomen and pelvis with coronal and sagittal reformatted images. CLINICAL INFORMATION: abd pain COMPARISON: 2022 DLP: 323.[address] scans at [facility] use at least one of these dose optimization techniques: automated exposure control; mA and/or kV adjustment per patient size (includes targeted exams where dose is matched to clinical indication); or iterative reconstruction. FINDINGS: Lung bases are well aerated. Hepatomegaly with hepatic congestion. Normal portal vein and splenic vein. Coarse hepatic parenchymal enhancement. Recommend correlation with liver function test. This can be seen with aggressive rehydration. Adrenal glands are normal. Normal renal parenchymal enhancement and no hydronephrosis. Normal GE junction. Normal caliber abdominal aorta. Celiac and SMA are patent. IUD in place. Multi follicular ovaries bilaterally. Small amount of free fluid in the cul-de-sac. Bladder is decompressed. Sigmoid divert iculosis. Low-lying cecum in the pelvis. No evidence of high-grade small or large bowel obstruction. Fecal retention in the cecum. Appendix not well visualized but no evidence of acute appendicitis. Normal lower lumbar spine. CT/CT abdomen pelvis w con* [id number] IMPRESSION: 1. Hepatomegaly with coarse parenchymal enhancement congestion. Recommend bozena elation liver function tests. This can be seen with aggressive rehydration. 2. Normal gallbladder. 3. Anteverted uterus with IUD multi follicular ovaries. Small amount of free f luid in the cul-de-sac. 4. Appendix is not visualized but no evidence of acute appendicitis. 5. Low-lying cecum in the pelvis with fecal retention scattered fluid in the c olon. No evidence of high-grade small or large bowel obstruction. 6. No other acute findings.
--- NOTE | 2025-04-20 08:15 | W.ED.ABDPA2 ---
HPI - Abdominal Pain General: Chief Complaint: Abdominal Pain Stated Complaint: abd pain / chills Time Seen by Provider: 04/20/25 08:11 Source: patient Mode of arrival: ambulatory Limitations: no limitations History of Present Illness: 25-year-old female states that over the last 3 days she has been having nausea vomiting diarrhea along with diffuse abdominal cramping. States she has similar episode 2 years ago and had a colitis. She denies any fevers denies any worse or improving factors states she has seen her PCP this week and he just started on Cipro and Flagyl and Zofran. Associated Symptoms: Reports nausea and vomiting Related Data Home Medications ?Medication ?Instructions ?Recorded ?Confirmed levonorgestrel (Mirena) 1 device intrauterine .Q8Y 06/20/24 04/20/25 Previous Rx's ?Medication ?Instructions ?Recorded ciprofloxacin HCl 500 mg tablet 500 mg PO BID #14 tabs 04/18/25 (Cipro) mesalamine 800 mg tablet,delayed 1,600 mg (2 x 800 mg) PO TID #60 04/18/25 release tabs metronidazole 500 mg tablet 500 mg PO BID #14 tabs 04/18/25 mirtazapine 15 mg tablet 15 mg PO DAILY #30 tabs 04/18/25 ondansetron HCl 4 mg tablet 4 mg PO Q6H PRN nausea and 04/18/25 vomiting #30 tabs prednisone 20 mg tablet 40 mg (2 x 20 mg) PO DAILY 5 days 04/18/25 #10 tabs metoclopramide HCl 10 mg tablet 10 mg PO Q6H PRN nausea and 04/20/25 (Reglan) vomiting #20 tabs Allergies Allergy/AdvReac Type Severity Reaction Status Date / Time Penicillins Allergy Intermediate ADR-Shakine Verified 02/10/23 15:45 ss Review of Systems GI: Reports: abdominal pain, nausea and vomiting PFS ED PFSH: Medical History (Updated 04/20/25 @ 09:57 by Gary Avila MD) Colitis Enterocolitis No pertinent family history Adjustment disorder Generalized anxiety disorder The following information retrieved/edited from Behavior Assessment Report completed on 02/18/22: Donna meets the diagnostic criteria for Generalized Anxiety Disorder in that she reports: excessive anxiety and worry, occurring more days than not for at least six months, about a number of events or activities; difficult to control the worry; the anxiety and worry are associated with restlessness or feeling keyed up or on edge; being easily fatigued; difficulty concentrating or mind going blank; irritability; sleep disturbances. The anxiety, worry, and physical symptoms cause clinically significant distress or impairment in social, occupational, or other important areas of functioning. Major depressive disorder, recurrent episode, unspecified The following information retrieved/edited from Behavior Assessment Report completed on 02/18/22: Donna meets the diagnostic criteria for Major Depressive Disorder, recurrent, moderate in that she reports: depressed mood most of the day, nearly every day, as indicated by either subjective report or observation made by others; markedly diminished interest or pleasure in all, or almost all, activities most of the day, nearly every day; decrease or increase in appetite nearly every day; insomnia or hypersomnia nearly every day; psychomotor agitation or retardation nearly every day; fatigue or loss of energy nearly every day; feelings of worthlessness or excessive or inappropriate guilt nearly every day; recurrent thoughts of , recurrent suicidal ideation without a specific plan, or a suicide attempt or a specific plan for committing suicide. The symptoms cause clinically significant distress or impairment in social, occupational, or other substance or to another medical condition. Panic attack Anxiety Cannabis abuse The following information retrieved/edited from Behavior Assessment Report completed on 02/18/22: Donna meets the diagnostic criteria for F12.10 Cannabis Use Disorder, mild in that she reports: not managing to do what you should at work, home, or school because of substance use; continuing to use, even when it causes problems in relationships; continuing to use, even when you know you have a physical or psychological problem that could have been caused or made worse by the substance; and needing more of the substance to get the effect you want (tolerance). Surgical History (Updated 04/18/25 @ 12:37 by Sarath Ramos MD) No pertinent past surgical history Family History Mother Hypothyroidism Denies family history of Colon cancer Ovarian cancer Diabetes Heart disease Breast cancer Hypertension Uterine cancer Thyroid disease Stroke Social History Smoking and tobacco/nicotine status: never used tobacco/nicotine Quit status (tobacco/nicotine): has quit using Year quit tobacco: 2024 Former quit date comment: Quit in May 2024 Physical Exam Const: COMMON NORMALS: no acute distress, patient oriented x3 and healthy appearing HENMT: COMMON NORMALS: normocephalic and atraumatic HEAD & SCALP: normocephalic and atraumatic Neck/C-Spine: COMMON NORMALS: full ROM and supple Chest: COMMONS NORMALS: normal inspection of the chest Resp: COMMON NORMALS: normal respiratory effort, No retractions, No use of accessory muscles and clear to auscultation bilaterally AUSCULTATION: clear to auscultation bilaterally Cardio: COMMON NORMALS: regular rate, regular rhythm and No murmurs present (Cardio) RATE: regular rate RHYTHM: regular rhythm GI: COMMON NORMALS: Normal to inspection, nondistended, normoactive bowel sounds present, Soft to palpation, non-tender and no masses PALPATION: Yes Soft to palpation Extremity: COMMON NORMALS: normal to inspection and full ROM Neuro: COMMON NORMALS: patient oriented x3, moves all extremities and no focal motor deficits Psych: COMMON NORMALS: mental status grossly normal, Normal thought process present and cooperative THOUGHT PROCESS: Normal thought process present Skin: COMMON NORMALS: no rashes or lesions noted and no wounds GENERAL SKIN EXAM: no rashes or lesions noted Course Vital Signs: Vital signs: Vital Signs Temperature 98.1 F 04/20/25 08:09 Pulse Rate 69 04/20/25 08:33 Respiratory Rate 18 04/20/25 08:33 Blood Pressure 113/78 04/20/25 08:33 Pulse Oximetry 99 04/20/25 08:33 Oxygen Delivery Tn thod Room Air 04/20/25 08:09 MDM - Abdominal Pain Medical Decision Making Patient presents with nausea vomiting for 3 days with some abdominal pain. Differential includes colitis, gastritis, appendicitis, bowel obstruction. Patient's lab work here reviewed by me showed no significant abnormalities. CT showed no acute findings she has no signs of appendicitis or colitis. Patient likely has a viral gastroenteritis. She does feel improved after Zofran and IV fluids. Will prescribe her Reglan for home she is to follow-up with her PCP and return if worsening she understands agrees to plan Medical Records I reviewed the patient's medical records. Lab Data I reviewed the patient's lab results. 04/20/25 08:22 04/20/25 08:22 Labs/Radiology: Radiology Impressions Abdomen/Pelvis CT 04/20/25 08:14 IMPRESSION: 1. Hepatomegaly with coarse parenchymal enhancement congestion. Recommend correlation liver function tests. This can be seen with aggressive rehydration. 2. Normal gallbladder. 3. Anteverted uterus with IUD multi follicular ovaries. Small amount of free fluid in the cul-de-sac. 4. Appendix is not visualized but no evidence of acute appendicitis. 5. Low-lying cecum in the pelvis with fecal retention scattered fluid in the colon. No evidence of high-grade small or large bowel obstruction. 6. No other acute findings. Laboratory Results WBC 6.39 10^3/uL (3.29-11.43) 04/20/25 08:22 RBC 4.72 10^6/uL (3.85-5.65) 04/20/25 08:22 Hgb 12.90 g/dL (11.27-16.99) 04/20/25 08:22 Hct 39.4 % (36-47) 04/20/25 08:22 MCV 83.5 fl (85-98) L 04/20/25 08:22 MCH 27.3 pg (27-33) 04/20/25 08:22 MCHC 32.7 g/dL (30-55) 04/20/25 08:22 RDW 13.5 % (12.1-15.1) 04/20/25 08:22 Plt Count 315 10^3/cmm (157-399) 04/20/25 08:22 MPV 9.4 fL (7.4-10.4) 04/20/25 08:22 Neut % (Auto) 62.3 % 04/20/25 08:22 Lymph % (Auto) 26.0 % 04/20/25 08:22 Bureau % (Auto) 5.6 % 04/20/25 08:22 Eos % (Auto) 4.4 % 04/20/25 08:22 Baso % (Auto) 1.4 % 04/20/25 08:22 Neut # (Auto) 3.98 10^3/uL (1.8-7.7) 04/20/25 08:22 Lymph # (Auto) 1.7 10^3/uL (0.8-4.8) 04/20/25 08:22 Bureau # (Auto) 0.4 10^3/uL (0.2-0.9) 04/20/25 08:22 Eos # (Auto) 0.3 10^3/uL (0.0-0.8) 04/20/25 08:22 Baso # (Auto) 0.1 10^3/uL (0.0-0.1) 04/20/25 08:22 Nucleated RBC % (auto) 0 % 04/20/25 08:22 Nucleated RBCs # 0.0 /100WBC 04/20/25 08:22 Sodium 138 mmol/L (136-145) 04/20/25 08:22 Potassium 4.0 mmol/L (3.5-5.1) 04/20/25 08:22 Chloride 104 mmol/L (98-107) 04/20/25 08:22 Carbon Dioxide 23 mmol/L (22-29) 04/20/25 08:22 Anion Gap 15.0 (5-19) 04/20/25 08:22 BUN 10 mg/dL (6-20) 04/20/25 08:22 Creatinine 0.7 mg/dL (0.5-0.9) 04/20/25 08:22 GFR Calculation 101.1 mL/min (90-130) 04/20/25 08:22 Glucose 131 mg/dL (65-115) H 04/20/25 08:22 Calculated Osmolality 287 mOsm/kg (285-295) 04/20/25 08:22 Calcium 9.1 mg/dL (8.5-10.5) 04/20/25 08:22 Total Bilirubin 0.2 mg/dL (0.15-1.2) 04/20/25 08:22 AST 17 U/L (0-32) 04/20/25 08:22 ALT 15 U/L (0-33) 04/20/25 08:22 Alkaline Phosphatase 57 U/L (35-105) 04/20/25 08:22 Total Protein 7.6 g/dL (6.6-8.7) 04/20/25 08:22 Albumin 4.6 g/dL (3.5-5.2) 04/20/25 08:22 Globulin 3.0 g/dL (1.3-4.6) 04/20/25 08:22 Lipase 20 U/L (13-60) 04/20/25 08:22 HCG, Qual Negative (Negative) 04/20/25 08:22 Urine Color Yellow (Yellow) 04/20/25 08:52 Urine Appearance Clear (CLEAR) 04/20/25 08:52 Urine pH 7.0 (5-7) 04/20/25 08:52 Ur Specific [place] 1.024 (1.005-1.030) 04/20/25 08:52 Urine Protein Negative (Negative) 04/20/25 08:52 Urine Glucose (UA) Negative (Normal) 04/20/25 08:52 Urine Ketones Negative (Negative) 04/20/25 08:52 Urine Blood Negative (Negative) 04/20/25 08:52 Urine Nitrate Negative (Negative) 04/20/25 08:52 Urine Bilirubin Negative (Negative) 04/20/25 08:52 Urine Urobilinogen 0.2 mg/dL (Negative) 04/20/25 08:52 Ur Leukocyte Esterase Negative (Negative) 04/20/25 08:52 Urine RBC 0-2 /hpf (0-2) 04/20/25 08:52 Urine WBC 0-5 /hpf (0-5) 04/20/25 08:52 Ur Squamous Epith Cells 0-5 /hpf (0-5) 04/20/25 08:52 Amorphous Sediment Not Reportable 04/20/25 08:52 Urine Bacteria None seen /hpf (NONE) 04/20/25 08:52 Hyaline Casts 0.81 /lpf 04/20/25 08:52 All radiology interpretation(s) finalized by discharge Discharge Plan Discharge Patient Disposition: Home Clinical Impression: Vomiting, Diarrhea Condition: Stable Prescriptions: New metoclopramide HCl [Reglan] 10 mg tablet 10 mg PO Q6H PRN (Reason: nausea and vomiting) Qty: 20 0RF No Action Mirena 21 mcg/24hr (up to 8 yrs) 52 mg intrauterine device 1 device intrauterine .Q8Y ondansetron HCl 4 mg tablet 4 mg PO Q6H PRN (Reason: nausea and vomiting) Qty: 30 2RF prednisone 20 mg tablet 40 mg PO DAILY 5 Days Qty: 10 0RF metronidazole 500 mg tablet 500 mg PO BID Qty: 14 0RF ciprofloxacin HCl [Cipro] 500 mg tablet 500 mg PO BID Qty: 14 0RF mesalamine 800 mg tablet,delayed release (DR/EC) 1,600 mg PO TID Qty: 60 0RF Rx Instructions: must be taken on empty stomach; no food 1 hr after or 2-3 hrs before dose mirtazapine 15 mg tablet 15 mg PO DAILY Qty: 30 3RF Discharge Orders: Discharge ED (Routine); Ordered 04/20/25 Ordered By: Gary Avila Referrals: Sarath Ramos MD [Primary Care Provider, [facility]] - 4-7 days Discharge Diet: Advance as tolerated Discharge Activity: Resume usual activity Patient Instructions: Acute Nausea and Vomiting (ED), Abdominal Pain (ED) Print Language: Honduran Coding Level of Care Code ED Boat Hand for Rodrigo Palmer
[2025-04-20] MEDS: ondansetron 2 mg/ML SDV 2 mL 4 MG IVP (08:25)
[2025-04-20 08:27] VITALS: RESP 18; O2SAT 100
[2025-04-20] MEDS: morphine 4 mg/mL SDV 1 mL IVP (08:27)
[2025-04-20 08:28] LABS: Hematocrit 39.4 % (36-47); Hemoglobin 12.90 g/dL (11.27-16.99); Mean Corpuscular HGB Conc 32.7 g/dL (30-55); Mean Corpuscular Hemoglobin 27.3 pg (27-33); Mean Corpuscular Volume 83.5 fl (85-98); Nucleated Red Blood Cells % 0 %; Platelet Count 315 10^3/cmm (157-399); Red Blood Count 4.72 10^6/uL (3.85-5.65); White Blood Count 6.39 10^3/uL (3.29-11.43)
[2025-04-20 08:33] VITALS: BP 113/78; PULSE 69; RESP 18; O2SAT 99
[2025-04-20 08:44] LABS: Albumin Level 4.6 g/dL (3.5-5.2); Alkaline Phosphatase 57 U/L (35-105); Anion Gap 15.0 (5-19); Aspartate Amino Transferase 17 U/L (0-32); Blood Urea Nitrogen 10 mg/dL (6-20); Calcium 9.1 mg/dL (8.5-10.5); Carbon Dioxide 23 mmol/L (22-29); Chloride 104 mmol/L (98-107); Globulin 3.0 g/dL (1.3-4.6); Glucose 131 mg/dL (65-115); Lipase 20 U/L (13-60); Osmolality Calculated 287 mOsm/kg (285-295); Potassium 4.0 mmol/L (3.5-5.1); Sodium 138 mmol/L (136-145); Total Protein 7.6 g/dL (6.6-8.7)
[2025-04-20 08:45] LABS: HCG, Serum Qual Negative (Negative)
[2025-04-20 08:55] LABS: Alanine Aminotransferase 15 U/L (0-33)
[2025-04-20 09:04] LABS: Glucose Urine UA Negative (Normal); Nitrate Urine Negative (Negative); Specific Gravity, Urine 1.024 (1.005-1.030)
[2025-04-20 09:06] LABS: Add Urine Microscopic? YES
[2025-04-20] MEDS: iohexol 350 mg/mL 500 mL Btl (per mL) IV (09:07)
[2025-04-20 10:07] VITALS: BP 100/66; PULSE 68; O2SAT 100
== END 2025-04-20 10:08 | disposition home or self-care (01) ==
PROVIDERS: Emergency Provider Emergency Medicine; PCP Family Medicine
DX: R11.10 Vomiting, unspecified (principal); R19.7 Diarrhea, unspecified; Z87.891 Personal history of nicotine dependence
CPT/HCPCS: 36415; 74177; 80053; 81001; 83690; 84703; 85025; 96361; 96374; 96375; 99285; J2270; J2405; J7030

== ENCOUNTER 2025-04-23 12:22 | Emergency (ER) | payer MEDICAID, SELFPAY ==
[2025-04-23] VITALS (8 sets, daily range): BP systolic 117–142; BP diastolic 74–82; PULSE 73–88; RESP 16; TEMP 36.5; O2SAT 98–100; BMI 18.9
--- NOTE | 2025-04-23 12:17 | W.ED.ABDPA2 ---
HPI - Abdominal Pain General: Chief Complaint: Abdominal Pain Stated Complaint: abd pain x 5 days History of Present Illness: 25-year-old female presents to the emergency room with generalized abdominal cramping and pain this is a little bit more in the upper portion of her abdomen. She has been very nauseous a lot of dry heaving she has had several episodes of diarrhea she denies any medication nonheme Tums cough cramps no dysuria urgency or frequency. She denies any previous abdominal surgeries. Patient reports she was previously diagnosed with ulcerative colitis however she cannot confirm if she ever had any endoscopy. She is not having any bloody diarrhea at this time. Associated Symptoms: Reports nausea; Denies chills, dysuria, fever(s) and vomiting Related Data Home Medications ?Medication ?Instructions ?Recorded ?Confirmed levonorgestrel (Mirena) 1 device intrauterine .Q8Y 06/20/24 04/20/25 Previous Rx's ?Medication ?Instructions ?Recorded ciprofloxacin HCl 500 mg tablet 500 mg PO BID #14 tabs 04/18/25 (Cipro) mesalamine 800 mg tablet,delayed 1,600 mg (2 x 800 mg) PO TID #60 04/18/25 release tabs metronidazole 500 mg tablet 500 mg PO BID #14 tabs 04/18/25 mirtazapine 15 mg tablet 15 mg PO DAILY #30 tabs 04/18/25 ondansetron HCl 4 mg tablet 4 mg PO Q6H PRN nausea and 04/18/25 vomiting #30 tabs prednisone 20 mg tablet 40 mg (2 x 20 mg) PO DAILY 5 days 04/18/25 #10 tabs metoclopramide HCl 10 mg tablet 10 mg PO Q6H PRN nausea and 04/20/25 (Reglan) vomiting #20 tabs lorazepam 2 mg tablet (Ativan) 2 mg buccal TID PRN nausea and 04/23/25 vomiting #10 tabs olanzapine 10 mg disintegrating 10 mg PO DAILY 5 days #10 tabs 04/23/25 tablet Allergies Allergy/AdvReac Type Severity Reaction Status Date / Time Penicillins Allergy Intermediate ADR-Shakine Verified 02/10/23 15:45 ss Review of Systems Const: Denies: fever(s) or chills Card: Denies: chest pain Resp: Denies: dyspnea GI: Reports: abdominal pain and nausea; Denies: vomiting : Denies: dysuria, urinary frequency or urinary urgency Musc: Denies: neck pain or back pain Skin/Breast: Denies: rash PFSH ED PFSH: Medical History Colitis Enterocolitis No pertinent family history Adjustment disorder Generalized anxiety disorder The following information retrieved/edited from Behavior Assessment Report completed on 02/18/22: Donna meets the diagnostic criteria for Generalized Anxiety Disorder in that she reports: excessive anxiety and worry, occurring more days than not for at least six months, about a number of events or activities; difficult to control the worry; the anxiety and worry are associated with restlessness or feeling keyed up or on edge; being easily fatigued; difficulty concentrating or mind going blank; irritability; sleep disturbances. The anxiety, worry, and physical symptoms cause clinically significant distress or impairment in social, occupational, or other important areas of functioning. Major depressive disorder, recurrent episode, unspecified The following information retrieved/edited from Behavior Assessment Report completed on 02/18/22: Donna meets the diagnostic criteria for Major Depressive Disorder, recurrent, moderate in that she reports: depressed mood most of the day, nearly every day, as indicated by either subjective report or observation made by others; markedly diminished interest or pleasure in all, or almost all, activities most of the day, nearly every day; decrease or increase in appetite nearly every day; insomnia or hypersomnia nearly every day; psychomotor agitation or retardation nearly every day; fatigue or loss of energy nearly every day; feelings of worthlessness or excessive or inappropriate guilt nearly every day; recurrent thoughts of , recurrent suicidal ideation without a specific plan, or a suicide attempt or a specific plan for committing suicide. The symptoms cause clinically significant distress or impairment in social, occupational, or other substance or to another medical condition. Panic attack Anxiety Cannabis abuse The following information retrieved/edited from Behavior Assessment Report completed on 02/18/22: Donna meets the diagnostic criteria for F12.10 Cannabis Use Disorder, mild in that she reports: not managing to do what you should at work, home, or school because of substance use; continuing to use, even when it causes problems in relationships; continuing to use, even when you know you have a physical or psychological problem that could have been caused or made worse by the substance; and needing more of the substance to get the effect you want (tolerance). Surgical History No pertinent past surgical history Family History Mother Hypothyroidism Denies family history of Colon cancer Ovarian cancer Diabetes Heart disease Breast cancer Hypertension Uterine cancer Thyroid disease Stroke Social History Smoking and tobacco/nicotine status: never used tobacco/nicotine Quit status (tobacco/nicotine): has quit using Year quit tobacco: 2024 Former quit date comment: Quit in May 2024 Physical Exam Const: GENERAL APPEARANCE: cooperative ORIENTATION/CONSCIOUSNESS: Yes awake, Yes oriented to person, Yes oriented to place and Yes oriented to time HENMT: COMMON NORMALS: normocephalic, atraumatic and hearing grossly normal bilaterally HEAD & SCALP: normocephalic and atraumatic Resp: COMMON NORMALS: normal respiratory effort, No retractions, No use of accessory muscles and clear to auscultation bilaterally AUSCULTATION: clear to auscultation bilaterally Cardio: COMMON NORMALS: regular rate, regular rhythm and No murmurs present (Cardio) RATE: regular rate RHYTHM: regular rhythm GI: COMMON NORMALS: No hepatosplenomegaly present AUSCULTATION: Yes normoactive bowel sounds PALPATION: Yes Tenderness to palpation present (GI) (Diffuse), No Guarding due to palpation present (GI) and Yes No hepatosplenomegaly present Extremity: COMMON NORMALS: normal to inspection, capillary refill normal, no clubbing, cyanosis or edema, no calf tenderness and no pedal edema Neuro: SENSORIUM/ORIENTATION: Yes oriented to person, Yes oriented to place and Yes oriented to time Skin: COMMON NORMALS: no rashes or lesions noted GENERAL SKIN EXAM: no rashes or lesions noted Course Vital Signs: Vital signs: Vital Signs Temperature 97.7 F 04/23/25 12:24 Pulse Rate 81 04/23/25 14:44 Respiratory Rate 16 04/23/25 12:24 Blood Pressure 117/82 04/23/25 14:44 Pulse Oximetry 100 04/23/25 14:44 Oxygen Delivery Me thod Room Air 04/23/25 14:16 MDM - Abdominal Pain Medical Decision Making Medical decision making Social determinants: None significant I reviewed the patient's medical record. I reviewed the patient's current home meds. Alternate historians: None Differential diagnosis: Cholecystitis, cholelithiasis, biliary colic, pancreatitis, gastroesophageal reflux disease, duodenal ulcer, bowel obstruction cannabinoid hyperemesis syndrome Lab Review: Laboratory test reviewed white count 11.9. Chemistries carbon oxide 20 remainder of electrolytes are normal elevation in BUN or creatinine. Liver functions are normal 1. UA does not show any signs of infection or hematuria. Serum beta-hCG is negative Imaging: No imaging done at this visit did review CT from previous ER visit 2 days ago was unremarkable Assessment of risk Level of risk: Low Hospitalization considerations: No emergent condition indicating hospitalization at this time Reexamination: Improved after Ativan and Haldol Assessment and plan: Patient admits to regular use of THC although she is reticent to considering this as a cause of her symptoms. Her abdominal exam while she has some epigastric tenderness is generally benign there is no peritoneal signs no acute abdomen. Her laboratory tests are unremarkable. Did not repeat her CT at this time. Previous CT showed some hepatomegaly although this is likely caused by IV fluid bolus small amount of fluid in the cul-de-sac likely physiologic gallbladder and appendix were normal. No evidence of bowel obstruction at this time and there is no evidence of cholecystitis bowel obstruction on exam at this time. Patient did have improvement of symptoms with Haldol and Ativan. Reviewed findings with her and encouraged her to consider abstaining or decreasing use of THC products. Patient not accepting of diagnosis and is very upset with diagnosis and findings. Will discharge home with Ativan and olanzapine to use as needed. Medical Records CT/CT abdomen pelvis w con* 51301 IMPRESSION: 1. Hepatomegaly with coarse parenchymal enhancement congestion. Recommend correlation liver function tests. This can be seen with aggressive rehydration. 2. Normal gallbladder. 3. Anteverted uterus with IUD multi follicular ovaries. Small amount of free fluid in the cul-de-sac. 4. Appendix is not visualized but no evidence of acute appendicitis. 5. Low-lying cecum in the pelvis with fecal retention scattered fluid in the colon. No evidence of high-grade small or large bowel obstruction. 6. No other acute findings. Dictated By: Timbo Segovia MD Signed By: Timbo Segovia MD Signed Date/Time: 04/20/25 0943 DD/ 0929 Lab Data 04/23/25 12:39 04/23/25 12:39 Labs/Radiology: Laboratory Results WBC 11.92 10^3/uL (3.29-11.43) H 04/23/25 12:39 RBC 4.50 10^6/uL (3.85-5.65) 04/23/25 12:39 Hgb 12.30 g/dL (11.27-16.99) 04/23/25 12:39 Hct 37.5 % (36-47) 04/23/25 12:39 MCV 83.3 fl (85-98) L 04/23/25 12:39 MCH 27.3 pg (27-33) 04/23/25 12:39 MCHC 32.8 g/dL (30-55) 04/23/25 12:39 RDW 13.4 % (12.1-15.1) 04/23/25 12:39 Plt Count 334 10^3/cmm (157-399) 04/23/25 12:39 MPV 9.7 fL (7.4-10.4) 04/23/25 12:39 Neut % (Auto) 84.7 % 04/23/25 12:39 Lymph % (Auto) 10.2 % 04/23/25 12:39 [place] % (Auto) 3.9 % 04/23/25 12:39 Eos % (Auto) 0.3 % 04/23/25 12:39 Baso % (Auto) 0.6 % 04/23/25 12:39 Neut # (Auto) 10.09 10^3/uL (1.8-7.7) H 04/23/25 12:39 Lymph # (Auto) 1.2 10^3/uL (0.8-4.8) 04/23/25 12:39 [place] # (Auto) 0.5 10^3/uL (0.2-0.9) 04/23/25 12:39 Eos # (Auto) 0.0 10^3/uL (0.0-0.8) 04/23/25 12:39 Baso # (Auto) 0.1 10^3/uL (0.0-0.1) 04/23/25 12:39 Nucleated RBC % (auto) 0 % 04/23/25 12:39 Nucleated RBCs # 0.0 /100WBC 04/23/25 12:39 Sodium 139 mmol/L (136-145) 04/23/25 12:39 Potassium 3.6 mmol/L (3.5-5.1) 04/23/25 12:39 Chloride 108 mmol/L (98-107) H 04/23/25 12:39 Carbon Dioxide 20 mmol/L (22-29) L 04/23/25 12:39 Anion Gap 14.6 (5-19) 04/23/25 12:39 BUN 6 mg/dL (6-20) 04/23/25 12:39 Creatinine 0.6 mg/dL (0.5-0.9) 04/23/25 12:39 GFR Calculation 120.8 mL/min (90-130) 04/23/25 12:39 Glucose 115 mg/dL (65-115) 04/23/25 12:39 Calculated Osmolality 287 mOsm/kg (285-295) 04/23/25 12:39 Calcium 9.7 mg/dL (8.5-10.5) 04/23/25 12:39 Total Bilirubin 0.2 mg/dL (0.15-1.2) 04/23/25 12:39 AST 16 U/L (0-32) 04/23/25 12:39 ALT 12 U/L (0-33) 04/23/25 12:39 Alkaline Phosphatase 55 U/L (35-105) 04/23/25 12:39 Total Protein 7.6 g/dL (6.6-8.7) 04/23/25 12:39 Albumin 4.7 g/dL (3.5-5.2) 04/23/25 12:39 Globulin 2.9 g/dL (1.3-4.6) 04/23/25 12:39 Lipase 20 U/L (13-60) 04/23/25 12:39 HCG, Qual Negative (Negative) 04/23/25 12:39 Urine Color Yellow (Yellow) 04/23/25 13:03 Urine Appearance Clear (CLEAR) 04/23/25 13:03 Urine pH >=9.0 (5-7) A 04/23/25 13:03 Ur Specific [place] 1.012 (1.005-1.030) 04/23/25 13:03 Urine Protein Negative (Negative) 04/23/25 13:03 Urine Glucose (UA) Negative (Normal) 04/23/25 13:03 Urine Ketones Negative (Negative) 04/23/25 13:03 Urine Blood Negative (Negative) 04/23/25 13:03 Urine Nitrate Negative (Negative) 04/23/25 13:03 Urine Bilirubin Negative (Negative) 04/23/25 13:03 Urine Urobilinogen 0.2 mg/dL (Negative) 04/23/25 13:03 Ur Leukocyte Esterase Negative (Negative) 04/23/25 13:03 Urine RBC 0-2 /hpf (0-2) 04/23/25 13:03 Urine WBC 0-5 /hpf (0-5) 04/23/25 13:03 Ur Squamous Epith Cells 0-5 /hpf (0-5) 04/23/25 13:03 Amorphous Sediment Not Reportable 04/23/25 13:03 Urine Bacteria None seen /hpf (NONE) 04/23/25 13:03 Hyaline Casts 0-4 /lpf H 04/23/25 13:03 No radiology studies performed this visit Discharge Plan Discharge Patient Disposition: Home Clinical Impression: Cannabinoid hyperemesis syndrome, At risk for dissatisfaction with healthcare Condition: Stable Prescriptions: New olanzapine 10 mg tablet,disintegrating 10 mg PO DAILY 5 Days Qty: 10 0RF lorazepam [Ativan] 2 mg tablet 2 mg buccal TID PRN (Reason: nausea and vomiting) Qty: 10 0RF No Action Mirena 21 mcg/24hr (up to 8 yrs) 52 mg intrauterine device 1 device intrauterine .Q8Y ondansetron HCl 4 mg tablet 4 mg PO Q6H PRN (Reason: nausea and vomiting) Qty: 30 2RF prednisone 20 mg tablet 40 mg PO DAILY 5 Days Qty: 10 0RF metronidazole 500 mg tablet 500 mg PO BID Qty: 14 0RF ciprofloxacin HCl [Cipro] 500 mg tablet 500 mg PO BID Qty: 14 0RF mesalamine 800 mg tablet,delayed release (DR/EC) 1,600 mg PO TID Qty: 60 0RF Rx Instructions: must be taken on empty stomach; no food 1 hr after or 2-3 hrs before dose mirtazapine 15 mg tablet 15 mg PO DAILY Qty: 30 3RF metoclopramide HCl [Reglan] 10 mg tablet 10 mg PO Q6H PRN (Reason: nausea and vomiting) Qty: 20 0RF Discharge Orders: Discharge ED (Routine); Ordered 04/23/25 Ordered By: James Prakash Referrals: Sarath Ramos MD [Primary Care Provider, Family Practice] Discharge Diet: Clear Liquid Discharge Activity: Increase activity as tolerated Patient Instructions: Abdominal Pain (ED), Opioid Safety, Pain Management, Patient Portal & Rory Instructions Activity Restrictions/Additional Instructions: [facility]. It is very important that you follow up as instructed or that you return to the Emergency Department should you have concerns or if your condition changes or worsens in any way. Emergency department visits are focused on emergent conditions, in some cases you may require further evaluation on an outpatient basis. You were seen in the emergency room with complaints of abdominal pain. We reviewed your previous visit including the CT that was done previously. That CT was normal. Your lab work today did not show any clinically significant abnormalities liver renal functions were normal your pancreatic enzymes were normal as well. Serum test was also negative. Your abdominal pain appears to be related to THC use syndrome called cannabinoid hyperemesis syndrome. THC products from dispensary's are much more potent and frequently cause this. Consider abstaining from THC products or decreasing frequency of use. Use of edible products and vape pens increases the frequency of these symptoms. If you do stop the use of THC completely it can sometimes take several weeks before that the symptoms completely resolved. Other home remedies include hot showers and capsaicin cream on the abdomen. (Please note that included in your discharge packet is information concerning opioid safety and pain management. This information is given to all patients were discharged from the ER regardless of their discharge diagnosis or the medicines they usually take or are prescribed.) Print Language: German Coding Level of Care Code ED Core Piler for Rodrigo Palmer
--- NOTE | 2025-04-23 12:34 | PC.NURSE ---
Pt asked for urine sample, pt states No not now I have nothing in my system. Pt educated on need for urine sample.
[2025-04-23 12:52] LABS: Hematocrit 37.5 % (36-47); Hemoglobin 12.30 g/dL (11.27-16.99); Mean Corpuscular HGB Conc 32.8 g/dL (30-55); Mean Corpuscular Hemoglobin 27.3 pg (27-33); Mean Corpuscular Volume 83.3 fl (85-98); Nucleated Red Blood Cells % 0 %; Platelet Count 334 10^3/cmm (157-399); Red Blood Count 4.50 10^6/uL (3.85-5.65); White Blood Count 11.92 10^3/uL (3.29-11.43)
[2025-04-23] MEDS: diphenhydrAMINE 50 mg/mL SDV 1mL IVP (12:59)
--- NOTE | 2025-04-23 13:05 | PC.NURSE ---
Pt is voicing to visitor in room this hospital is the worst, it made the top worst hospital list in the world. The doctors are incompetent, the staff have terrible bedside manners and registration is so rude. No reason they are the worst. Pt then states to nurse I have an IUD but I haven't had a period in months, there's a low risk I may be . And I want it noted that in November 2022 I was admitted to this hospital for the same issues I'm currently having, I don't remember the doctor's name but I want to know what the difference is from now and then. Pt then making jokes with visitor in room. Pt requested IV to left AC, HUC OB placed IV to left AC where pt requested it, pt then voiced Great 3 pokes in the same arm. Pt has call light within reach. Rails up. IV fluids flowing.
[2025-04-23 13:15] LABS: Alanine Aminotransferase 12 U/L (0-33); Albumin Level 4.7 g/dL (3.5-5.2); Alkaline Phosphatase 55 U/L (35-105); Anion Gap 14.6 (5-19); Aspartate Amino Transferase 16 U/L (0-32); Blood Urea Nitrogen 6 mg/dL (6-20); Calcium 9.7 mg/dL (8.5-10.5); Carbon Dioxide 20 mmol/L (22-29); Chloride 108 mmol/L (98-107); Globulin 2.9 g/dL (1.3-4.6); Glucose 115 mg/dL (65-115); Lipase 20 U/L (13-60); Osmolality Calculated 287 mOsm/kg (285-295); Potassium 3.6 mmol/L (3.5-5.1); Sodium 139 mmol/L (136-145); Total Protein 7.6 g/dL (6.6-8.7)
[2025-04-23 13:20] LABS: HCG, Serum Qual Negative (Negative)
[2025-04-23 13:21] LABS: Glucose Urine UA Negative (Normal); Nitrate Urine Negative (Negative); Specific Gravity, Urine 1.012 (1.005-1.030)
[2025-04-23 13:26] LABS: Add Urine Microscopic? YES
--- NOTE | 2025-04-23 13:58 | PC.NURSE ---
Upon last rounds pt was talking with visitor, and even at times laughing, upon checking on another room, AMBULANCE OFFICER heard crying, checked on pt and pt on right side crying, states Want the pain to stop Pt rates pain 8.
[2025-04-23] MEDS: haloperidol inj 5 mg/mL INJ 1 mL 2.5 MG IVP (14:10)
[2025-04-23] MEDS: LORazepam 2 mg/mL INJ 1 mL IVP (14:11)
--- OUTSIDE RECORDS SUMMARY | 2025-04-23 17:19 | XMS_ITS | Patient Health Record ---
Author Organization [facility] Address [address] [place] [address] Care Team Providers Care Drafter Electronic Name Role Phone Sarath Ramos MD Primary Care Provider Ted Wynn Unavailable [phone] Allergies Allergen (clinical drug ingredient) Drug/Non Drug Allergy documented on EMR Reaction Allergy Type Onset Date Status Penicillin Unknown Drug Allergy Active Reason For Referral No Information Social History Tobacco Use: Social History Observation Description Date Details (start date - stop date) Current Smoker NA - NA Social History Drugs/Alcohol: Social Info Question Answer Notes Alcohol Screen (Audit-C) Did you have a drink containing alcohol in the past year? Yes How often did you have a drink containing alcohol in the past year? Monthly or less (1 point) Points 1 Interpretation Negative Caffeine Intake: Soda or Tea Tobacco Use: Social Info Question Answer Notes xTobacco Use/Smoking Are you a current smoker How often do you smoke cigarettes? every day How many cigarettes a day do you smoke? 6-10 Additional Details Category Social Info Options Details Drugs/Alcohol: Do you smoke marijuana? Re creational use, Admits Do you drink alcohol? Socially, Yes Plan Of Treatment No Information Insurance Providers Payer Name Payer Address Payer Phone Subscriber Number Group Number Insured Name Patient Relationship to Insured Coverage Start Date Coverage End Date Home State Health Plan Medicaid [facility]placement [address] [facility] [phone] [id number] Donna Mullins Self - patient is the insured Medical (General) History Medical History History ICD Code anemia bladder infections anxiety GERD ulcerative colitis Depression Hospitalization History Reason Date(Month/Year) [facility]/ Abdom inal pain 10/2022
== END 2025-04-23 14:30 | disposition home or self-care (01) ==
PROVIDERS: Emergency Provider Family Medicine; PCP Family Medicine
DX: R11.16 Cannabis hyperemesis syndrome (principal); Z91.89 Other specified personal risk factors, not elsewhere classified; Z87.891 Personal history of nicotine dependence
CPT/HCPCS: 36415; 80053; 81001; 83690; 84703; 85025; 96361; 96374; 96375; 99284; J1200; J1630; J2060; J7030

== ENCOUNTER 2025-05-14 09:32 | Emergency (ER) | payer MEDICAID, SELFPAY ==
--- OUTSIDE RECORDS SUMMARY | 2025-05-14 09:37 | XMS_ITS | Patient Health Record ---
Author Organization [facility] Address [address] [place] [address] Care Team Providers Care Car Hopper Name Role Phone Rachel PILLAI, Sarath Primary Care Provider Tylora Andrea Menezes Unavailable [phone] Allergies Allergen (clinical drug ingredient) Drug/Non Drug Allergy documented on EMR Reaction Allergy Type Onset Date Status Penicillin Unknown Drug Allergy Active Reason For Referral Reason PT HAS HX OF ULCERAT RUDY COLITIS. SAW DR. HERMOSILLO BUT DID NOT THAT SHE IS GETTING NEEDED TREATMENT. SHE CURRENTLY HAS SYMPTOMS CONSISTENT WOTH A FLARE UP. EVAL AND TREAT Diagnosis 1 Ulcerative colitis w ithout complications, unspecified location (K51.90) Referring Provider First Name Sarath Referring Provider Last Name Rachel Referring Provider Speciality Family Med icine Referred Organization [facility] Referred Provider Andrea Orozco Referred Address [address] [place] [phone], Referred Provider Specialty Internal Med rona General Notes Carol Escobar 025 11:13:19 AM BROADCAST METEOROLOGIST > SENT REQUEST FOR INSURANCE CARD Referral Priority Routine Social History Tobacco Use: Social History Observation [...] Admits Do you drink alcohol? Socially, Yes Problems Problem Type SNOMED Code ICD Code Onset Dates Problem Status W/U Status Risk Notes Problem Ulcerative colitis (69421928) Ulcerative colitis without complications, unspecified location (K51.90) Active confirmed Plan Of Treatment No Information Insurance Providers Payer Name Payer Address Payer Phone Subscriber Number Group Number Insured Name Patient Relationship to Insured Coverage Start Date Coverage End Date [facility] [address] [place] [phone] [id number] Donna Mullins Self - patient is the insured Medical (General) History Medical History History ICD Code anemia bladder infections anxiety GERD ulcerative colitis Depression Hospitalization History Reason Date(Month/Year) [facility]/ Abdom inal pain 10/2022
[2025-05-14 09:38] VITALS: BP 111/80; PULSE 83; TEMP 36.4; O2SAT 100; BMI 19.8
[2025-05-14 10:15] LABS: Hematocrit 40.4 % (36-47); Hemoglobin 12.90 g/dL (11.27-16.99); Mean Corpuscular HGB Conc 31.9 g/dL (30-55); Mean Corpuscular Hemoglobin 27.3 pg (27-33); Mean Corpuscular Volume 85.4 fl (85-98); Nucleated Red Blood Cells % 0 %; Platelet Count 278 10^3/cmm (157-399); Red Blood Count 4.73 10^6/uL (3.85-5.65); White Blood Count 13.28 10^3/uL (3.29-11.43)
[2025-05-14 10:39] LABS: Alanine Aminotransferase 15 U/L (0-33); Albumin Level 4.7 g/dL (3.5-5.2); Alkaline Phosphatase 66 U/L (35-105); Anion Gap 17.1 (5-19); Aspartate Amino Transferase 14 U/L (0-32); Blood Urea Nitrogen 11 mg/dL (6-20); Calcium 9.6 mg/dL (8.5-10.5); Carbon Dioxide 23 mmol/L (22-29); Chloride 102 mmol/L (98-107); Globulin 3.5 g/dL (1.3-4.6); Glucose 103 mg/dL (65-115); Osmolality Calculated 286 mOsm/kg (285-295); Potassium 4.1 mmol/L (3.5-5.1); Sodium 138 mmol/L (136-145); Total Protein 8.2 g/dL (6.6-8.7)
[2025-05-14 10:47] LABS: HCG, Serum Qual Negative (Negative)
--- NOTE | 2025-05-14 10:53 | W.ED.ABDPA2 ---
HPI - Abdominal Pain General: Chief Complaint: Abdominal Pain Stated Complaint: trouble urinating x2 days, abd pain Time Seen by Provider: 05/14/25 10:42 Source: patient Mode of arrival: ambulatory Limitations: no limitations History of Present Illness: Patient is a 25-year-old female who presents to the ED today with a complaint of abdominal pain, nausea, vomiting. I get the sense that patient is frustrated over her current symptoms as she immediately seems aggravated that nobody can tell me what is wrong . She tells me she has been seen here in the ED multiple times and everybody says nothing is wrong and go home . She states she has followed up with her primary care provider, Dr. Ramos as well regarding symptoms. At one point she was seen by [facility] due to concerns of hepatomegaly and ulcerative colitis. Patient states the provider did not take me seriously and essentially told her again that nothing was wrong and go home and I do not need to see you again until you are in your 50s . She states she has been referred to another GI specialist by Dr. Ramos but has not heard anything yet. Patient tells me she has chronic abdominal pain and intermittent episodes of intractable nausea and vomiting. She has been seen here in our emergency department 15+ times since 2021 for almost identical presentations. She has had multiple CT scans showing no acute pathology. Patient has been diagnosed with hyperemesis cannabinoid syndrome-a diagnosis that she questions. She does tell me she habitually uses marijuana although has cut down some. She does tell me the only thing that helps her nausea and vomiting at home is lying in a hot shower. She has had refractory symptoms with typical antiemetics including Phenergan, Reglan, Zofran. She states she has been prescribed Ativan at home which is the only medication she has found which helps her symptoms but does not like the cognitive (sedating/ brain fog ) symptoms that go along with it. She at some point mentions being diagnosed with ulcerative colitis but does not recall when/who gave her this diagnosis. She does not think she has ever had an endoscopy/colonoscopy. MD elicited complaint: abdominal pain and other (N/V) Onset (ago): year(s) Pain Consistency: intermittent Location: Diffuse Severity: moderate Quality: cramping Radiation: none Migration to: no migration Exacerbating factors: eating Relieving factors: other (hot shower, ativan) Associated Symptoms: Reports nausea and vomiting; Denies change in bowel habits, chills, dysuria, fever(s) and hematemesis Related Data Home Medications ?Medication ?Instructions ?Recorded ?Confirmed levonorgestrel (Mirena) 1 device intrauterine .Q8Y 06/20/24 04/20/25 Previous Rx's ?Medication ?Instructions ?Recorded mesalamine 800 mg tablet,delayed 1,600 mg (2 x 800 mg) PO TID #60 04/18/25 release tabs mirtazapine 15 mg tablet 15 mg PO DAILY #30 tabs 04/18/25 prednisone 20 mg tablet 40 mg (2 x 20 mg) PO DAILY 5 days 04/18/25 #10 tabs lorazepam 1 mg tablet (Ativan) 1 mg buccal Q8H PRN nausea and 05/14/25 vomiting #10 tabs olanzapine 5 mg tablet 5 mg PO DAILY PRN nausea and 05/14/25 vomiting 3 days #3 tabs Allergies Allergy/AdvReac Type Severity Reaction Status Date / Time Penicillins Allergy Intermediate ADR-Shakine Verified 05/14/25 09:42 ss Review of Systems Const: Denies: fever(s), chills, body aches, fatigue or malaise Card: Denies: chest pain Resp: Denies: dyspnea GI: Reports: abdominal pain, nausea and vomiting; Denies: hematemesis or change in bowel habits : Denies: flank pain, difficulty voiding, dysuria, urinary frequency, urinary urgency or urinary hesitancy Musc: Denies: neck pain, back pain, extremity pain, extremity swelling, joint pain or joint swelling Skin/Breast: Denies: rash Neuro: Denies: headache(s), numbness in extremities, weakness in extremities, sensory changes or dizziness [facility] ED PFSH: Medical History Colitis Enterocolitis No pertinent family history Adjustment disorder Generalized anxiety disorder The following information retrieved/edited from Behavior Assessment Report completed on 02/18/22: Donna meets the diagnostic criteria for Generalized Anxiety Disorder in that she reports: excessive anxiety and worry, occurring more days than not for at least six months, about a number of events or activities; difficult to control the worry; the anxiety and worry are associated with restlessness or feeling keyed up or on edge; being easily fatigued; difficulty concentrating or mind going blank; irritability; sleep disturbances. The anxiety, worry, and physical symptoms cause clinically significant distress or impairment in social, occupational, or other important areas of functioning. Major depressive disorder, recurrent episode, unspecified The following information retrieved/edited from Behavior Assessment Report completed on 02/18/22: Donna meets the diagnostic criteria for Major Depressive Disorder, recurrent, moderate in that she reports: depressed mood most of the day, nearly every day, as indicated by either subjective report or observation made by others; markedly diminished interest or pleasure in all, or almost all, activities most of the day, nearly every day; decrease or increase in appetite nearly every day; insomnia or hypersomnia nearly every day; psychomotor agitation or retardation nearly every day; fatigue or loss of energy nearly every day; feelings of worthlessness or excessive or inappropriate guilt nearly every day; recurrent thoughts of , recurrent suicidal ideation without a specific plan, or a suicide attempt or a specific plan for committing suicide. The symptoms cause clinically significant distress or impairment in social, occupational, or other substance or to another medical condition. Panic attack Anxiety Cannabis abuse The following information retrieved/edited from Behavior Assessment Report completed on 02/18/22: Donna meets the diagnostic criteria for F12.10 Cannabis Use Disorder, mild in that she reports: not managing to do what you should at work, home, or school because of substance use; continuing to use, even when it causes problems in relationships; continuing to use, even when you know you have a physical or psychological problem that could have been caused or made worse by the substance; and needing more of the substance to get the effect you want (tolerance). Surgical History No pertinent past surgical history Family History Mother Hypothyroidism Denies family history of Colon cancer Ovarian cancer Diabetes Heart disease Breast cancer Hypertension Uterine cancer Thyroid disease Stroke Social History Smoking and tobacco/nicotine status: never used tobacco/nicotine Quit status (tobacco/nicotine): has quit using Year quit tobacco: 2024 Former quit date comment: Quit in May 2024 Physical Exam Const: COMMON NORMALS: no acute distress, average body habitus, patient oriented x3, no limitations, healthy appearing, alert and well nourished GENERAL APPEARANCE: cooperative ORIENTATION/CONSCIOUSNESS: Yes awake, Yes oriented to person, Yes oriented to place and Yes oriented to time OTHER: tearful, frustrated about current condition/no diagnosis HENMT: COMMON NORMALS: normocephalic and atraumatic HEAD & SCALP: normal to inspection, normocephalic and atraumatic Eye: COMMON NORMALS: no scleral icterus Resp: COMMON NORMALS: normal respiratory effort and clear to auscultation bilaterally AUSCULTATION: clear to auscultation bilaterally Cardio: COMMON NORMALS: regular rate and regular rhythm RATE: regular rate RHYTHM: regular rhythm GI: COMMON NORMALS: Normal to inspection, nondistended, normoactive bowel sounds present, Soft to palpation, No hepatosplenomegaly present and no masses INSPECTION: Yes normal to inspection AUSCULTATION: Yes normoactive bowel sounds PALPATION: Yes Soft to palpation, Yes Tenderness to palpation present (GI) (across mid to lower abdomen), No Guarding due to palpation present (GI), No Rigid due to palpation and Yes No hepatosplenomegaly present : COMMON NORMALS: Yes no CVA tenderness BLADDER/KIDNEY EXAM: Yes no CVA tenderness Back/Pelvis: COMMON NORMALS: no CVA tenderness Extremity: GENERAL: Yes normal exam except as noted Neuro: ROVERTO COMA SCALE: document GCS findings [place] coma scale eye opening: Spontaneous [place] coma scale verbal response: Orientated [place] coma scale motor response: Obey commands Roverto coma scale total score: 15 COMMON NORMALS: patient oriented x3, moves all extremities, no focal motor deficits and no sensory deficits noted SENSORIUM/ORIENTATION: Yes alert, Yes oriented to person, Yes oriented to place and Yes oriented to time Skin: COMMON NORMALS: no rashes or lesions noted GENERAL SKIN EXAM: no rashes or lesions noted Course Vital Signs: Vital signs: Vital Signs Temperature 97.6 F 05/14/25 09:38 Pulse Rate 98 05/14/25 13:30 Blood Pressure 114/53 05/14/25 13:30 Pulse Oximetry 99 05/14/25 13:30 Oxygen Delivery Me thod Room Air 05/14/25 12:15 MDM - Abdominal Pain Medical Decision Making Patient is a 25-year-old female here with ongoing abdominal pain, nausea, vomiting present since 2021. She has had 15+ ED visits for almost identical symptoms. History is highly suspicious for hyperemesis cannabis syndrome. She has been told possibility of ulcerative colitis previously. She is apparently supposed to be following up with Dr. Orozco for a second GI opinion as she did not like her care with GI at [facility] but has not had an appointment yet. We did discuss other potential etiologies including inflammatory bowel disease, IBS, among others. She was given IV fluids, ativan, haldol here with relief of symptoms and tolerated PO challenge. She will be allowed discharge. Return to ED precautions discussed. Differential Diagnosis Likely abdominal pain Medical Records I reviewed the patient's medical records. Lab Data I reviewed the patient's lab results. 05/14/25 10:09 05/14/25 10:09 Labs/Radiology: Laboratory Results WBC 13.28 10^3/uL (3.29-11.43) H 05/14/25 10:09 RBC 4.73 10^6/uL (3.85-5.65) 05/14/25 10:09 Hgb 12.90 g/dL (11.27-16.99) 05/14/25 10:09 Hct 40.4 % (36-47) 05/14/25 10:09 MCV 85.4 fl (85-98) 05/14/25 10:09 MCH 27.3 pg (27-33) 05/14/25 10:09 MCHC 31.9 g/dL (30-55) 05/14/25 10:09 RDW 13.7 % (12.1-15.1) 05/14/25 10:09 Plt Count 278 10^3/cmm (157-399) 05/14/25 10:09 MPV 9.5 fL (7.4-10.4) 05/14/25 10:09 Neut % (Auto) 83.2 % 05/14/25 10:09 Lymph % (Auto) 8.3 % 05/14/25 10:09 Gall[place] % (Auto) 6.5 % 05/14/25 10:09 Eos % (Auto) 0.9 % 05/14/25 10:09 Baso % (Auto) 0.7 % 05/14/25 10:09 Neut # (Auto) 11.06 10^3/uL (1.8-7.7) H 05/14/25 10:09 Lymph # (Auto) 1.1 10^3/uL (0.8-4.8) 05/14/25 10:09 Gall[place] # (Auto) 0.9 10^3/uL (0.2-0.9) 05/14/25 10:09 Eos # (Auto) 0.1 10^3/uL (0.0-0.8) 05/14/25 10:09 Baso # (Auto) 0.1 10^3/uL (0.0-0.1) 05/14/25 10:09 Nucleated RBC % (auto) 0 % 05/14/25 10:09 Nucleated RBCs # 0.0 /100WBC 05/14/25 10:09 Sodium 138 mmol/L (136-145) 05/14/25 10:09 Potassium 4.1 mmol/L (3.5-5.1) 05/14/25 10:09 Chloride 102 mmol/L (98-107) 05/14/25 10:09 Carbon Dioxide 23 mmol/L (22-29) 05/14/25 10:09 Anion Gap 17.1 (5-19) 05/14/25 10:09 BUN 11 mg/dL (6-20) 05/14/25 10:09 Creatinine 0.8 mg/dL (0.5-0.9) 05/14/25 10:09 GFR Calculation 86.7 mL/min (90-130) L 05/14/25 10:09 Glucose 103 mg/dL (65-115) 05/14/25 10:09 Calculated Osmolality 286 mOsm/kg (285-295) 05/14/25 10:09 Calcium 9.6 mg/dL (8.5-10.5) 05/14/25 10:09 Total Bilirubin 0.6 mg/dL (0.15-1.2) 05/14/25 10:09 AST 14 U/L (0-32) 05/14/25 10:09 ALT 15 U/L (0-33) 05/14/25 10:09 Alkaline Phosphatase 66 U/L (35-105) 05/14/25 10:09 Total Protein 8.2 g/dL (6.6-8.7) 05/14/25 10:09 Albumin 4.7 g/dL (3.5-5.2) 05/14/25 10:09 Globulin 3.5 g/dL (1.3-4.6) 05/14/25 10:09 HCG, Qual Negative (Negative) 05/14/25 10:09 Urine Color Yellow (Yellow) 05/14/25 10:56 Urine Appearance Clear (CLEAR) 05/14/25 10:56 Urine pH 5.5 (5-7) 05/14/25 10:56 Ur Specific [place] 1.035 (1.005-1.030) H 05/14/25 10:56 Urine Protein 1+ (Negative) A 05/14/25 10:56 Urine Glucose (UA) Negative (Normal) 05/14/25 10:56 Urine Ketones 4+ (Negative) 05/14/25 10:56 Urine Blood 1+ (Negative) A 05/14/25 10:56 Urine Nitrate Negative (Negative) 05/14/25 10:56 Urine Bilirubin Negative (Negative) 05/14/25 10:56 Urine Urobilinogen 1.0 mg/dL (Negative) 05/14/25 10:56 Ur Leukocyte Esterase Negative (Negative) 05/14/25 10:56 Urine RBC 6-10 /hpf (0-2) 05/14/25 10:56 Urine WBC 0-5 /hpf (0-5) 05/14/25 10:56 Ur Squamous Epith Cells 6-10 /hpf (0-5) 05/14/25 10:56 Amorphous Sediment Not Reportable 05/14/25 10:56 Urine Bacteria 1+ /hpf (NONE) H 05/14/25 10:56 Hyaline Casts 7.85 /lpf 05/14/25 10:56 No radiology studies performed this visit Discharge Plan Discharge Patient Disposition: Home Clinical Impression: Abdominal symptoms Condition: Stable Prescriptions: New lorazepam [Ativan] 1 mg tablet 1 mg buccal Q8H PRN (Reason: nausea and vomiting) Qty: 10 0RF olanzapine 5 mg tablet 5 mg PO DAILY PRN (Reason: nausea and vomiting) 3 Days Qty: 3 0RF Discontinued ondansetron HCl 4 mg tablet 4 mg PO Q6H PRN (Reason: nausea and vomiting) Qty: 30 2RF metronidazole 500 mg tablet 500 mg PO BID Qty: 14 0RF ciprofloxacin HCl [Cipro] 500 mg tablet 500 mg PO BID Qty: 14 0RF metoclopramide HCl [Reglan] 10 mg tablet 10 mg PO Q6H PRN (Reason: nausea and vomiting) Qty: 20 0RF lorazepam [Ativan] 2 mg tablet 2 mg buccal TID PRN (Reason: nausea and vomiting) Qty: 10 0RF No Action Mirena 21 mcg/24hr (up to 8 yrs) 52 mg intrauterine device 1 device intrauterine .Q8Y prednisone 20 mg tablet 40 mg PO DAILY 5 Days Qty: 10 0RF mesalamine 800 mg tablet,delayed release (DR/EC) 1,600 mg PO TID Qty: 60 0RF Rx Instructions: must be taken on empty stomach; no food 1 hr after or 2-3 hrs before dose mirtazapine 15 mg tablet 15 mg PO DAILY Qty: 30 3RF Discharge Orders: Discharge ED (Routine); Ordered 05/14/25 Ordered By: Jasmyn Herring Referrals: Sarath Ramos MD [Primary Care Provider, Family Practice] Patient Instructions: Abdominal Pain (ED), Patient Portal & Rory Instructions Activity Restrictions/Additional Instructions: Your blood work here was unremarkable. I do not feel we need to obtain emergent CT imaging today as you have had multiple CT scans in the past without much insight into your symptoms. We did discuss the possibility of marijuana causing some of your symptoms and I would highly recommend complete cessation of marijuana. I would like you to continue to follow-up with your primary care provider about further GI follow-up. Looking at previous documentation, it looks like he has referred you to Dr. Orozco. I will prescribe you medications to help with nausea and vomiting at home. I have decreased the strength of the Ativan that you were prescribed last time to help cut down on the drowsiness. Print Language: Citizen [place] Coding Level of Care Code ED Acid Adjuster for Rodrigo Palmer
[2025-05-14 11:04] VITALS: BP 128/68; PULSE 75; O2SAT 100
[2025-05-14 11:04] LABS: Glucose Urine UA Negative (Normal); Nitrate Urine Negative (Negative)
[2025-05-14 11:09] LABS: Add Urine Microscopic? YES
[2025-05-14 11:40] LABS: Specific Gravity, Urine 1.035 (1.005-1.030); UA Slide Review UA Slide Review Perf
[2025-05-14] MEDS: LORazepam 2 mg/mL INJ 1 mL 1 MG IVP (11:51)
[2025-05-14] MEDS: haloperidol inj 5 mg/mL INJ 1 mL 2.5 MG IVP (11:51)
[2025-05-14 12:15] VITALS: BP 106/62; PULSE 92; O2SAT 99
[2025-05-14 13:30] VITALS: BP 114/53; PULSE 98; O2SAT 99
== END 2025-05-14 13:31 | disposition home or self-care (01) ==
PROVIDERS: Emergency Provider Physician Assistant; PCP Family Medicine
DX: R10.9 Unspecified abdominal pain (principal); R11.2 Nausea with vomiting, unspecified; Z87.891 Personal history of nicotine dependence
CPT/HCPCS: 36415; 80053; 81001; 84703; 85025; 96361; 96374; 96375; 99284; J1630; J2060; J7030